=== PATIENT | male | born 1940 | race Caucasian/White ===

== ENCOUNTER 2017-08-14 22:50 | Inpatient (IN) | payer OTHER ==
[~2017-08-14] VITALS: Ht 182.9 cm; Wt 115.3 kg
[~2017-08-14 22:50] MED LIST: AMLO-114 PO; ASPI81TA28 PO; ATOR-24 PO; CALC0.2510 PO; CHOL20009 PO; DOXA2TAB PO; FURO40TA3 PO; HYDR-3983 PO; INSUINJ4 SQ; MRLP17 PO; NRN100 PO; PENT400T7 PO; PLV75 PO; PRT40 PO; SENN8.6T7 PO; THM50 PO; TPRSR25 PO
--- NOTE | 2017-08-14 23:24 | EMERGENCY ROOM VISIT NOTE ---
History Report prepared by Jose A: Viral Nash Under the Supervision of: Dr. Neymar Moseley M.D. First contact with patient: 23:02 Chief Complaint: FALL Stated Complaint: FALL/WEAKNESS EVAL. History of Present Illness The patient is a 76 year old male who presents to the Emergency Room with complaints of a resolved fall that occurred this evening. The patient's history comes from his daughter because the patient does not speak Surinamese; he only speaks Belgian. She states the patient has a long history of medical conditions , and he is becoming more and more immobile. The daughter reports he has been sitting in a chair for a few years, but he has been able to stand up and use a urinal next to his bed. She notes tonight he got up to use the restroom and fell. The daughter states he lives with her, and she could not get him up after he fell. She reports he was supposed to go to dialysis a year and a half ago, but he has not started it because of his severe spinal stenosis. The daughter notes he states he cannot move. She states he has not been evaluated by his PCP in over a year. She states his abdomen has started swelling, and he has not been able to eat as much. The daughter reports she thinks it has to do with his kidneys. She notes he also complains of throat discomfort. The daughter denies hitting his head, vomiting, diarrhea, fevers, and alcohol use. She states he has been smoking since he was in high school. HPI limited secondary to the patient's inability to speak Surinamese. Source of History: family (daughter) History Limited By: language Review of Systems ROS limited secondary to the patient's inability to speak Surinamese. Past Medical & Surgical Medical Problems: (1) Anxiety (2) Chronic kidney disease, stage IV (severe) (3) Complicated UTI (urinary tract infection) (4) DM type 2 (diabetes mellitus, type 2) (5) HTN (hypertension) (6) PAD (peripheral artery disease) Family History None presented Social History Smoking Status: Current Every Day Smoker Alcohol Use: none Drug Use: none Marital Status: Housing Status: lives with family Occupation Status: retired Current/Historical Medications Scheduled Amlodipine (Norvasc), 10 MG PO DAILY Aspirin (Aspirin Ec), 81 MG PO DAILY Cholecalciferol (Vitamin D), 4,000 INTER.UNIT PO DAILY Clopidogrel (Plavix), 75 MG PO DAILY Doxazosin Mesylate (Cardura), 2 MG PO DAILY Furosemide (Lasix), 80 MG PO DAILY Gabapentin (Neurontin), 100 MG PO QAM Insulin Glargine (Lantus Solostar Pen), UNIT SQ DAILY Metoprolol Succ (Toprol Xl) (Toprol-Xl), 25 MG PO HS Pantoprazole (Protonix), 40 MG PO DAILY Pentoxifylline (Trental), 400 MG PO DAILY Polyethylene Glycol 3350 (Miralax), 17 GM PO BID Sennosides-Docusate Sodium (Senokot S), 1 TAB PO BID Thiamine Hcl (Vitamin B-1), 50 MG PO DAILY Scheduled PRN Hydrocodone/Acetaminophen 7.5MG/325MG ([place] 7.5MG/325MG), 1 TAB PO Q6 PRN for Pain Allergies Coded Allergies: LORETTA Inhibitors (Verified Adverse Reaction, Intermediate, ADVANCED CKD, 08/14) Angiotensin Receptor Blockers (Verified Adverse Reaction, Intermediate, ADVANCED CKD, 08/14/17) Physical Exam Vital Signs Date Time Temp Pulse Resp B/P (MAP) Pulse Ox O2 Delivery O2 Flow Rate FiO2 08/15/17 02:18 79 18 131/54 96 Room Air 08/15/17 00:29 76 21 136/58 98 Room Air 08/14/17 23:13 75 08/14/17 23:04 84 08/14/17 23:00 36.8 83 22 134/67 97 Room Air Physical Exam GENERAL: Patient is elderly, chronically unwell appearing and in no acute distress. Overweight. EYES: No scleral icterus, unremarkable pupils. ENT: Mucous membranes moist, no nasal congestion. NECK: No meningismus, trachea is midline. Mild lymph node swelling to the anterior cervical. RESPIRATORY: No dyspnea. Clear to auscultation and equal bilaterally. No wheeze , no rhonchi. CARDIOVASCULAR: Regular rate and rhythm. No murmurs, rubs, gallops appreciated. GASTROINTESTINAL: Abdomen soft, nontender, no peritonitis. Bowel sounds positive. No masses appreciated. BACK: No midline tenderness, no CVA tenderness EXTREMITIES: Normal motion all extremities, no cyanosis, edematous feet with poor cap refill bilaterally. Missing right great toe. Bloody left great toe. Lymphedema to the bilateral legs with anterior circumferential wound to the left lower pugh. NEUROLOGIC: Alert and oriented, no acute motor or sensory deficits, no focal weakness, cranial nerves grossly intact. SKIN: No rash, no jaundice, no diaphoresis. Medical Decision & Procedures ER Provider Diagnostic Interpretation: X ray results are stated below per my interpretation. One View Pelvis: No fracture or dislocation. Mild degenerative changes. Three View Lumbar Spine: Chronic compression deformity - similar in appearance to CT of June 2015 with questionable increase in compression at L1 and L2. Worsening of posterior listhesis of L2 on L3. One View Chest: Mild congestion findings, perihilar adenopathy - similar to previous although slightly enlarged. Right lower lobe nodule appears new. No infiltrate or effusion. Compared to June 2015. Laboratory Results Test 08/14/17 23:20 08/15/17 01:05 RDW Standard Deviation 46.6 fL (36.4-46.3) RDW Coefficient of Variation 13.9 % (11.5-14.5) White Blood Count 14.77 K/uL (4.8-10.8) Red Blood Count 2.76 M/uL (4.7-6.1) Hemoglobin 8.9 g/dL (14.0-18.0) Hematocrit 25.5 % (42-52) Mean Corpuscular Volume 92.4 fL (80-100) Mean Corpuscular Hemoglobin 32.2 pg (25-34) Mean Corpuscular Hemoglobin Concent 34.9 g/dl (32-36) Platelet Count 293 K/uL (130-400) Mean Platelet Volume 10.8 fL (7.4-10.4) Neutrophils (%) (Auto) 74.8 % Lymphocytes (%) (Auto) 16.4 % Monocytes (%) (Auto) 5.8 % Eosinophils (%) (Auto) 2.4 % Basophils (%) (Auto) 0.3 % Neutrophils # (Auto) 11.06 K/uL (1.4-6.5) Lymphocytes # (Auto) 2.42 K/uL (1.2-3.4) Monocytes # (Auto) 0.86 K/uL (0.11-0.59) Eosinophils # (Auto) 0.35 K/uL (0-0.5) Basophils # (Auto) 0.04 K/uL (0-0.2) Immature Granulocyte % (Auto) 0.3 % Immature Granulocyte # (Auto) 0.04 K/uL (0.00-0.02) Red Blood Cell Morphology Unremarkable Prothrombin Time 10.4 SECONDS (9.0-12.0) Prothromb Time International Ratio 1.0 (0.9-1.1) Activated Partial Thromboplast Time 31.6 SECONDS (21.0-31.0) Partial Thromboplastin Ratio 1.2 Est Creatinine Clear Calc Drug Dose 25.9 ml/min Phosphorus Level 2.0 mg/dl (2.5-4.9) Magnesium Level 1.9 mg/dl (1.8-2.4) Total Bilirubin 0.3 mg/dl (0.2-1) Direct Bilirubin 0.1 mg/dl (0-0.2) Aspartate Amino Transf (AST/SGOT) 13 U/L (15-37) Alanine Aminotransferase (ALT/SGPT) 17 U/L (12-78) Alkaline Phosphatase 119 U/L (45-117) Total Creatine Kinase 241 U/L (39-308) Creatine Kinase MB 3.1 ng/ml (0.5-3.6) Creatine Kinase MB Ratio 1.3 (0-3.0) Troponin I < 0.015 ng/ml (0-0.045) Total Protein 7.2 gm/dl (6.4-8.2) Albumin 2.8 gm/dl (3.4-5.0) Lipase 325 U/L (73-393) Beta-Hydroxybutyric Acid 1.51 mg/dL (0.2-2.81) Procalcitonin 0.12 ng/ml (0-0.5) Thyroid Stimulating Hormone (TSH) 2.720 uIu/ml (0.300-4.500) Urine Color YELLOW Urine Appearance CLEAR (CLEAR) Urine pH 7.0 (4.5-7.5) Urine Specific [place] 1.018 (1.000-1.030) Urine Protein 1+ (NEG) Urine Glucose (UA) 3+ (NEG) Urine Ketones NEG (NEG) Urine Occult Blood 2+ (NEG) Urine Nitrite POS (NEG) Urine Bilirubin NEG (NEG) Urine Urobilinogen NEG (NEG) Urine Leukocyte Esterase SMALL (NEG) Urine WBC (Auto) 10-30 /hpf (0-5) Urine RBC (Auto) 0-4 /hpf (0-4) Urine Hyaline Casts (Auto) 0 /lpf (0-5) Urine Epithelial Cells (Auto) 10-20 /lpf (0-5) Urine Bacteria (Auto) 2+ (NEG) Laboratory results as reviewed by me. Medications Administered Medications (Trade) Dose Ordered Sig/Shubham Route Start Time Stop Time Status Last Admin Dose Admin Insulin Human Regular (novoLIN-R U-100 PER UNIT) 10 units NOW STAT IV 08/15/17 00:20 08/15/17 00:21 DC 08/15/17 00:27 10 UNITS Sodium Chloride 500 ml @ 999 mls/hr Q31M STAT IV 08/15/17 00:20 08/15/17 00:50 DC 08/15/17 00:26 999 MLS/HR Hydromorphone HCl (Dilaudid Inj) 0.5 mg 0129 ONCE IV 08/15/17 01:29 08/15/17 01:35 DC 08/15/17 01:48 0.5 MG Insulin Glargine (Lantus Solostar Pen) 30 units 0133 ONCE SC 08/15/17 01:33 08/15/17 01:35 DC 08/15/17 01:47 30 UNITS Doxycycline Hyclate 100 mg/ Dextrose 110 ml @ 50 mls/hr NOW STAT IV 08/15/17 02:06 08/15/17 04:17 DC 08/15/17 02:35 50 MLS/HR Prochlorperazine Edisylate 5 mg/ Syringe 5 ml @ 5 mls/min Q6H PRN IV 08/15/17 02:00 09/14/17 01:59 08/15/17 04:18 5 MLS/MIN Cefepime HCl 2000 mg/Syringe 20 ml @ 5 mls/min NOW STAT IV 08/15/17 02:07 08/15/17 02:10 DC 08/15/17 02:30 5 MLS/MIN Gabapentin (Neurontin Cap) 100 mg 0229 ONCE PO 08/15/17 02:29 08/15/17 04:05 DC 08/15/17 04:29 100 MG ECG Per My Interpretation Indication: weakness Rate (beats per minute): 77 Rhythm: normal sinus Findings: no acute ischemic change, no ectopy, other (Left anterior fasicular block. QTc of 495. U-wave in lateral leads.) Comparison ECG Date: 06/25/15 Change: U-wave is new. Otherwise morphology is generally the same. ED Course 2301: The patient was evaluated in room B09. A complete history and physical exam was performed. 0021: I reevaluated the patient. I updated him and his family of the test and lab results. His family states he is too weak to go home, and they would like further evaluation. 0028: I discussed the patient's case with Linda Mckenzie Hospitalist. The patient will be evaluated for further management and care. Medical Decision Differential: Sepsis, Infectious (UTI/Pneumonia/Meningitis/etc), Metabolic/ Electrolyte Abnormality, Cardiac, Dehydration, Anemia, Hepatic, Endocrine, Toxicologic, Neurologic, amongst other pathologies entertained. 76 yr old male with multiple medical comorbidities and essentially bed/chair bound over the last year or so arrives due to weakness too profound for family to care for. Found to be significantly hyperglycemic with mild leukocytosis. Lymphedema bilateral legs chronic with weeping sores left lower leg with some erythema though not overtly infected. Awaiting UA but given clearly will need to come if will have hospitalist evaluated. Afebrile and without tachy will hold off on empiric abx at this time. UA did eventually come back positive and hospitalist will manage abx. Head Trauma GCS Score: 15 Medication Reconcilliation Current Medication List: was personally reviewed by me Blood Pressure Screening Patient's blood pressure: Normal blood pressure Blood pressure disposition: Did not require urgent referral Consults Time Called: 23 Consulting Physician: Linda Mckenzie Returned Call: 0028 I discussed the patient's case with Linda Mckenzie. The patient will be evaluated for further management and care. Impression Primary Impression: Generalized weakness Additional Impressions: Hyperglycemia Failure to thrive Complicated UTI (urinary tract infection) Scribe Attestation The scribe's documentation has been prepared under my direction and personally reviewed by me in its entirety. I confirm that the note above accurately reflects all work, treatment, procedures, and medical decision making performed by me. Departure Information Dispostion Being Evaluated By Hospitalist Referrals Rosemary Chicas D.O. (PCP) Patient Instructions [facility] Problem Qualifiers
[2017-08-14] MEDS ORDERED: CLOP1TAB15 PO (23:28)
[2017-08-14] MEDS ORDERED: GABA-112 PO (23:30)
[2017-08-14] MEDS ORDERED: HYDR-3983 PO (23:31)
[2017-08-14 23:33] LABS: HEMATOCRIT 25.5 % (42-52); HEMOGLOBIN 8.9 g/dL (14.0-18.0); MEAN CELL VOLUME 92.4 fL (80-100); MEAN CORPUSCULAR HEMOGLOBIN 32.2 pg (25-34); MEAN CORPUSCULAR HGB CONC 34.9 g/dl (32-36); MEAN PLATELET VOLUME 10.8 fL (7.4-10.4); PLATELET COUNT 293 K/uL (130-400); RED CELL DISTRIBUTION WIDTH CV 13.9 % (11.5-14.5); RED CELL DISTRIBUTION WIDTH SD 46.6 fL (36.4-46.3); WHITE BLOOD COUNT 14.77 K/uL (4.8-10.8)
[2017-08-14] MEDS ORDERED: METO25TA3 PO (23:33)
[2017-08-14] MEDS ORDERED: PANT40TA PO (23:34)
[2017-08-14] MEDS ORDERED: POLY335019 PO (23:35)
[2017-08-14] MEDS ORDERED: SENN8.6T7 PO (23:36)
[2017-08-14] MEDS ORDERED: THIA50TA3 PO (23:37)
[2017-08-14 23:47] LABS: PTT PATIENT 31.6 SECONDS (21.0-31.0)
[2017-08-14 23:53] LABS: BASO % 0.3 %; BASO ABS # 0.04 K/uL (0-0.2); EOS % 2.4 %; EOS ABS # 0.35 K/uL (0-0.5); IG# 0.04 K/uL (0.00-0.02); LYMPH % 16.4 %; LYMPH ABS # 2.42 K/uL (1.2-3.4); MONO % 5.8 %; MONO ABS # 0.86 K/uL (0.11-0.59); NEUT % 74.8 %; NEUT ABS # 11.06 K/uL (1.4-6.5)
[2017-08-15 00:09] LABS: ALBUMIN 2.8 gm/dl (3.4-5.0); ALKALINE PHOSPHATASE 119 U/L (45-117); ALT/SGPT 17 U/L (12-78); AST/SGOT 13 U/L (15-37); BLOOD UREA NITROGEN 24 mg/dl (7-18); CALCIUM 7.9 mg/dl (8.5-10.1); CARBON DIOXIDE 23 mmol/L (21-32); CKMB 3.1 ng/ml (0.5-3.6); GLUCOSE 403 mg/dl (70-99); LIPASE 325 U/L (73-393); POTASSIUM 3.7 mmol/L (3.5-5.1); SODIUM 132 mmol/L (136-145); TOTAL PROTEIN 7.2 gm/dl (6.4-8.2)
[2017-08-15] MEDS ORDERED: SODIUM CHLORIDE 0.9% 500ML 500 ML IV STA (00:20)
[2017-08-15] MEDS ORDERED: NovoLIN-R INSULIN PER UNIT CHARGE IV STA (00:20)
[2017-08-15] MEDS ORDERED: HYDROmorphone INJ 0.5 MG/0.5 ML SYR IV ONE (01:29)
[2017-08-15] MEDS ORDERED: INSULIN GLARGINE SOLOSTAR 100 UNITS/ML 3 ML PEN SC ONE ×3 (01:33→21:51)
[2017-08-15] MEDS ORDERED: GLUCOSE 40% GEL 15 GM TUBE PO PRN ×2 (01:45→02:30)
[2017-08-15] MEDS ORDERED: DEXTROSE 50% 50 ML SYR IV PRN ×2 (01:45→02:30)
[2017-08-15] MEDS ORDERED: GLUCAGON FOR INJ 1 MG VIAL IM PRN (01:45)
[2017-08-15] MEDS ORDERED: GLUCOSE 10 TABS/TUBE PO PRN ×2 (01:45→02:30)
[2017-08-15] MEDS ORDERED: CEFEPIME IV 2,000 MG in DEXTROSE 5% 100ML 100 ML IV ONE (02:00)
[2017-08-15] MEDS ORDERED: TRAMADOL HCL 50 MG TAB PO PRN (02:00)
[2017-08-15] MEDS ORDERED: DOXYCYCLINE IV 100 MG in DEXTROSE 5% 100ML 100 ML IV STA (02:06)
[2017-08-15] MEDS ORDERED: CEFEPIME IV 2,000 MG in SYRINGE 7.5 ML IV STA (02:07)
[2017-08-15] MEDS ORDERED: DOCUSATE SODIUM/SENNA 50/8.6MG TAB PO ONE (02:29)
[2017-08-15] MEDS ORDERED: POTASSIUM PHOS 3 MMOL/1 ML INFUSION IV STA (02:29)
[2017-08-15] MEDS ORDERED: GABAPENTIN 100 MG CAP PO ONE (02:29)
[2017-08-15] MEDS ORDERED: ACETAMINOPHEN 325 MG TAB PO PRN (02:30)
[2017-08-15] MEDS ORDERED: CARBOHYDRATES FOR HYPOGLYCEMIA PO PRN (02:30)
[2017-08-15] MEDS ORDERED: PROCHLORPERAZINE INJ 5 MG in SYRINGE 4 ML IV PRN (02:30)
[2017-08-15] MEDS ORDERED: GLUCAGON FOR INJ 1 MG VIAL SQ PRN (02:30)
[2017-08-15] MEDS ORDERED: INSULIN ASPART 100 UNITS/ML 3 ML PEN SC STA (02:45)
[2017-08-15] MEDS ORDERED: POTASSIUM PHOSPHATE INJ 18 MMOL in SODIUM CHLORIDE 0.9% 500ML 500 ML IV ONE (02:45)
--- NOTE | 2017-08-15 03:41 | HISTORY & PHYSICAL EXAMINATION ---
DATE OF ADMISSION: 08/14/2017 PRIMARY CARE PHYSICIAN: Dr. Chicas. CHIEF COMPLAINT: Fall, weakness. HISTORY OF PRESENT ILLNESS: History obtained from patient, daughter, and records. History from patient limited by language barrier. Medical history is significant for history of CVA as per records, PVD status post surgery; hypertension, past tobacco abuse, DM2, insulin requiring, chronic anemia (baseline hemoglobin of 10), chronic renal insufficiency (baseline creatinine 3-4), ongoing tobacco abuse. Recent confinement last June 2015 for NSTEMI, recurrent pancreatitis. Medical management for NSTEMI. In the last year, patient has had increasing debility, trouble walking. Has not seen his family doctor for almost 2 years now due to difficulty in ambulation w chronic back pain, lower extremity neuropathy. Patient had been chair bound for about a year as per daughter. Patient did not want to follow up with PCP for a checkup. Last week, patient noted left leg swelling, which subsequently drained yellowish drainage. Increasing generalized weakness. Central abdominal discomfort, distention. Some nausea, constipated, intermittent bloody stools as per daughter, MEDICAL HISTORY: As above. SURGERIES: cholecystectomy, toe surgery. HOME MEDICATIONS: Include Protonix, Senokot, vitamin B1, gabapentin, Lantus, Toprol, Trental, aspirin, Norvasc, vitamin D, Cardura, Lasix. ALLERGIES: LORETTA INHIBITORS, ARBS. FAMILY HISTORY: There is a family history of multiple myeloma. PERSONAL AND SOCIAL HISTORY: Five cigarettes a day. No chronic intake of alcoholic beverages. Retired airline captain. Lives with daughter. Originally from [facility]. REVIEW OF SYSTEMS: Could not be reliably obtained. PHYSICAL EXAMINATION: VITAL SIGNS: Blood pressure was noted to be 134/68, pulse rate 83, RR 22, temperature 36.8, sats 98 on room air. GENERAL: Noted to be obese, unkempt, uncomfortable. No respiratory distress. SKIN: Pallor, warm. HEENT: Partial alopecia. Pale palpebral conjunctivae. No ptosis. Dry mucosa. NECK: Short, supple. CHEST: Decreased effort. No tenderness. HEART: Regular rate and rhythm, no murmur. ABDOMEN: distention, no overt tenderness. RECTAL: Intact sphincter, brown stool, heme positive. EXTREMITIES: Superficial wound, left lower extremity with yellow drainage, no LE tenderness, LLE swelling; venous stasis bilateral LABORATORY DATA: Hemoglobin noted to be 8.9, hematocrit 35.5, white cell count was 14.7, platelets 293. Sodium 132, potassium 3.7, chloride 102, BUN 24, creatinine 3.3, glucose was noted to be 403, alkaline phosphatase 119. Hemoglobin A1c from October 2015 was 8.7. UA, nitrite positive, WBC est, poss occult blood. CT head initial read no acute pathology CT abdomen and pelvis initial read stool burden, stable nonspecific lymphadenopathy, Postcholecystectomy CXR as per my interpretation minimal congestion, atelectasis EKG as per my interpretation rate 80 NSR LAD LAFB, no ischemia ASSESSMENT: 1. Complicated UTI, no overt sepsis, 2. Diabetic wound, left lower extremity. No overt sepsis. Rule out DVT as etiology of left leg swelling 3. DM2, insulin requiring, suboptimal control as of last outpatient hemoglobin A1c from 2015 4. Hypertension, stable. 5. Kvzbj-rt-upozmiw anemia 2 to intermittent LGIB hx chronic anemia secondary to CKD 6. CRI, creatinine at baseline. 7. hx CVA as per records 8. hx PVD sp surgery 9. ongoing tobacco abuse. 10. Ambulatory dysfunction 2 to chronic back pain, diabetic peripheral neuropathy 11. Functional disability PLAN: GMF Follow urine cultures, IV Cefepime for UTI IV Cefepime and Doxycycline for LLE wound, cellulitis Wound care nurse consult LLE venous Dopplers rule out DVT Appropriate to hold home antiplatelets for now given intermittent LGIB causing hemoglobin drop from baseline Follow H and H. Transfuse pRBC if hemoglobin less than 8 (hx PVD) Anemia workup Inpatient GI consult LGIB as per daughter request PT, OT eval. Basal insulin, ISS BG goal 140-180, carb count coverage indicated for suboptimal blood sugar control Check hemoglobin A1c Diabetic education for patient and caregiver daughter. May benefit for pharmacy glycemic control consult. Patient to stop smoking. PT, OT eval. DVT Prophylaxis TEDS (SCDs contraindicated by hx PVD) RE GI bleed Social service RE discharge planning Full code. Patient's daughter requesting for updates from providers, [facility] thru contact number [phone]. [facility]
[2017-08-15] MEDS: PROCHLORPERAZINE INJ 5 MG in SYRINGE 4 ML IV PRN ×2 (04:18→09:48)
[2017-08-15 04:29] VITALS: BP 136/64; PULSE 81; TEMP 36.6; O2SAT 97; BMI 34.5
--- NOTE | 2017-08-15 05:34 | DIAGNOSTIC IMAGING REPORT ---
LUMBAR SPINE 2 OR 3 VIEWS CLINICAL HISTORY: 76 years-old Male presenting with chronic low back pain, worse with fall this evening. TECHNIQUE: Frontal, lateral, and coned in lateral views of the lumbar spine were obtained. COMPARISON: CT of the lumbar spine from 06/27/2015. FINDINGS: Osteopenia suggested. Normal lumbar lordosis. No significant scoliosis. Vertebral bodies maintain normal height and alignment though mild vertebral body height loss may be present at T12 similar to prior exam. Prominent anterior osteophytosis. Intervertebral disc heights preserved. Facet arthropathy in the lower lumbar spine results in osseous neural foraminal narrowing from L3-4 through L5-S1. No evidence of a compression deformity or subluxation. Gaseous distention of the right colon with moderate stool burden in the left colon. Cholecystectomy clips noted. IMPRESSION: 1. Multilevel degenerative changes with osseous neural foraminal narrowing. 2. Suspected osteopenia limits evaluation for fracture. Allowing for this, no radiographic evidence of a compression deformity. 3. Moderate stool burden in the left colon with gaseous distention of the right colon. Electronically signed by: Mikey Carreno M.D. 08/15/2017 5:33 AM Dictated Date/Time: 08/15/2017 5:30 AM
--- NOTE | 2017-08-15 05:36 | DIAGNOSTIC IMAGING REPORT ---
PELVIS 1 OR 2 VIEW ROUTINE CLINICAL HISTORY: 76 years-old Male presenting with fall, low back pain. TECHNIQUE: Single frontal view the pelvis was obtained. COMPARISON: CT from 06/25/2015 FINDINGS: Sacroiliac joints, hip joints, and pubic symphysis congruent. Osteopenia suspected. Bony pelvis intact. Femoral necks grossly intact. No acute fracture or malalignment. No advanced degenerative change. No radiographic soft tissue abnormality. IMPRESSION: No acute osseous injury. Electronically signed by: Mikey Carreno M.D. 08/15/2017 5:34 AM Dictated Date/Time: 08/15/2017 5:33 AM
--- NOTE | 2017-08-15 05:37 | DIAGNOSTIC IMAGING REPORT ---
CHEST ONE VIEW PORTABLE CLINICAL HISTORY: 76 years-old Male presenting with Generalized Weakness. TECHNIQUE: Portable upright AP view of the chest was obtained. COMPARISON: 06/25/2015. FINDINGS: Atherosclerosis of the aortic arch. Cardiac silhouette normal in size. Mild prominence of pulmonary vasculature. Prominence of the bilateral jonh is presumably vascular No focal opacity. No large effusion or pneumothorax. Osseous structures normal. IMPRESSION: 1. Mild volume overload suggested. No norris pulmonary edema. Electronically signed by: Mikey Carreno M.D. 08/15/2017 5:36 AM Dictated Date/Time: 08/15/2017 5:35 AM
[2017-08-15 06:55] LABS: HEMATOCRIT 24.8 % (42-52); HEMOGLOBIN 8.6 g/dL (14.0-18.0); MEAN CELL VOLUME 92.5 fL (80-100); MEAN CORPUSCULAR HEMOGLOBIN 32.1 pg (25-34); MEAN CORPUSCULAR HGB CONC 34.7 g/dl (32-36); MEAN PLATELET VOLUME 10.6 fL (7.4-10.4); PLATELET COUNT 279 K/uL (130-400); RED CELL DISTRIBUTION WIDTH CV 13.9 % (11.5-14.5); RED CELL DISTRIBUTION WIDTH SD 46.1 fL (36.4-46.3); RETIC COUNT % 2.4 % (0.5-2.0); WHITE BLOOD COUNT 14.28 K/uL (4.8-10.8)
--- NOTE | 2017-08-15 07:05 | DIAGNOSTIC IMAGING REPORT ---
HEAD WITHOUT CONTRAST (CT) CLINICAL HISTORY: 76 years-old Male presenting with lower extremity weakness, history of stroke. TECHNIQUE: Multidetector CT imaging of the head was performed without the use of intravenous contrast. IV contrast: None. A dose lowering technique was used consistent with the principles of ALARA (as low as reasonably achievable). COMPARISON: None. CT DOSE (mGy.cm): The estimated cumulative dose is 614.27 mGy.cm. FINDINGS: Rn Allergy topogram: Unremarkable. Proportional ventricular and sulcal prominence, likely age-related parenchymal volume loss. Brain parenchyma normal in appearance with preserved suárez-white differentiation. No mass effect or midline shift. No hemorrhage or acute territorial infarct. No extra-axial fluid collection. Paranasal sinuses and mastoid air cells clear. Calvarium intact. IMPRESSION: 1. No acute intracranial abnormality. Electronically signed by: Mikey Carreno M.D. 08/15/2017 7:03 AM Dictated Date/Time: 08/15/2017 7:01 AM
[2017-08-15 07:23] LABS: CALCIUM 7.7 mg/dl (8.5-10.1); CREATININE 3.03 mg/dl (0.60-1.40); POTASSIUM 3.8 mmol/L (3.5-5.1)
[2017-08-15 07:41] LABS: BASO % 0.3 %; BASO ABS # 0.04 K/uL (0-0.2); EOS % 1.2 %; EOS ABS # 0.17 K/uL (0-0.5); IG# 0.05 K/uL (0.00-0.02); LYMPH % 12.9 %; LYMPH ABS # 1.84 K/uL (1.2-3.4); MONO % 5.8 %; MONO ABS # 0.83 K/uL (0.11-0.59); NEUT % 79.4 %; NEUT ABS # 11.35 K/uL (1.4-6.5)
[2017-08-15] MEDS ORDERED: CEFEPIME CONSULT ACTIVE PRN (08:00)
[2017-08-15] MEDS: DOCUSATE SODIUM/SENNA 50/8.6MG TAB PO SCH ×2 (08:00→21:00)
[2017-08-15 08:01] LABS: HEMOGLOBIN A1C 11.6 % (4.5-5.6)
[2017-08-15] MEDS: POLYETHYLENE (MIRALAX) 17 GM PACK PO SCH ×2 (08:01→20:59)
[2017-08-15] MEDS: PANTOprazole SOD 40 MG TAB PO SCH (08:01)
[2017-08-15] MEDS: THIAMINE HCL 50 MG TAB PO SCH (08:01)
[2017-08-15 08:07] VITALS: BP 135/71; PULSE 82; TEMP 36.8; O2SAT 95
--- NOTE | 2017-08-15 08:12 | DIAGNOSTIC IMAGING REPORT ---
ABD/PELVIS NO IV OR ORAL CONT CLINICAL HISTORY: 76 years-old Male presenting with abd pain, vomiting. TECHNIQUE: Multidetector CT of the abdomen and pelvis was performed without the use of intravenous contrast. IV contrast: None. A dose lowering technique was used consistent with the principles of ALARA (as low as reasonably achievable). COMPARISON: 06/25/2015. CT DOSE (mGy.cm): The estimated cumulative dose is 1589.96 mGy.cm. FINDINGS: Image quality is degraded by positioning of the arms at the sides. [employer] topogram: Unremarkable. Lung bases: Minimal basilar opacities, likely atelectasis. Normal heart size. Coronary artery and aortic valve calcification. No pericardial or pleural effusion. Liver: Normal morphology. Normal density. Biliary: No gross biliary ductal dilatation allowing for noncontrast technique. Gallbladder surgically absent. Pancreas: Moderate parenchymal atrophy. Less atrophy of the pancreatic head is noted at the peripancreatic fat infiltration along the dorsum and ventral aspect of the pancreas. A component of this is chronic including periduodenal fascial thickening and infiltration of the root of the small bowel mesentery. Spleen: Normal noncontrast appearance. Adrenal glands: Normal noncontrast appearance. Kidneys and ureters: Bilaterally atrophic kidneys. A hyperdense subcentimeter lesion at the anterior aspect of the interpolar region of the right kidney may represent a hemorrhagic or proteinaceous cyst but is incompletely evaluated. Few low-density to intermediate density lesions also noted, some may represents cysts and some indeterminate. No hydronephrosis. No nephrolithiasis. Renal vascular calcification. Ureters normal. Bladder: Circumferential bladder wall thickening. Pelvic organs: Prostate enlargement likely secondary to benign prostatic hyperplasia. Bowel: Mild stool burden throughout normal caliber colon. The appendix is normal. No bowel obstruction. Intramural fat deposition in the descending duodenum could suggest chronic inflammation. Peritoneal cavity: No free fluid or intraperitoneal gas. Trace retroperitoneal fluid and fascial thickening. Much of this is chronic. Lymph nodes: No gross lymphadenopathy allowing for noncontrast technique. Vasculature: Atherosclerosis of the normal caliber abdominal aorta. Abdominal wall: Diastasis of the rectus abdominis. Musculoskeletal: Degenerative changes of the spine. Degenerative changes of the sacroiliac joints. IMPRESSION: 1. Peripancreatic and periduodenal fluid and inflammatory change as well as fascial thickening. Some of this is chronic. Correlate with lipase to exclude interstitial edematous pancreatitis. Relatively less atrophy of the pancreatic head could relate to the presence of pancreatitis. Follow-up contrast enhanced exam could be considered to exclude underlying pancreatic mass. 2. 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 Infiltration of the mesentery secondary to this entity is difficult to distinguish from at least some of the peripancreatic/periduodenal inflammatory change. 3. Atrophic kidneys with several indeterminate subcentimeter lesions, some of which are cysts. Renal ultrasound to be considered if there is clinical concern. 4. Chronic bladder outlet obstruction secondary to prostatomegaly. The report will be called/faxed according to standard departmental protocol. Electronically signed by: Mikey Carreno M.D. 08/15/2017 8:10 AM Dictated Date/Time: 08/15/2017 8:01 AM
[2017-08-15] MEDS: HYDROCODONE/ACETAMINOPHEN 7.5/325MG TAB PO PRN ×2 (08:18→21:15)
--- NOTE | 2017-08-15 08:54 | DIAGNOSTIC IMAGING REPORT ---
L VENOUS DOPP LOWER EXT UNILAT CLINICAL HISTORY: 76 years-old Male presenting with left lower extremity pain and swelling. TECHNIQUE: Real-time grayscale and color and spectral Doppler ultrasound imaging of the veins of the left lower extremity was performed. Compression and augmentation were also utilized. COMPARISON: 06/23/2015. FINDINGS: Left: Common femoral vein: Patent. Greater saphenous vein: Patent. Deep femoral vein: Patent. Femoral vein: Patent. Popliteal vein: Patent. Calf veins: Limited visualization. Other: None. IMPRESSION: No evidence of deep venous thrombosis. Electronically signed by: Mikey Carreno M.D. 08/15/2017 8:53 AM Dictated Date/Time: 08/15/2017 8:52 AM
[2017-08-15] MEDS: INSULIN ASPART 100 UNITS/ML 3 ML PEN SC SCH ×4 (09:32→20:59)
[2017-08-15] MEDS: HYDROmorphone INJ 0.5 MG/0.5 ML SYR IV PRN ×2 (09:37→12:53)
[2017-08-15 12:06] VITALS: BP 120/76; PULSE 69; TEMP 36.8; O2SAT 97
--- NOTE | 2017-08-15 13:05 | GASTROINTESTINAL CONSULTATION ---
DATE OF CONSULTATION: 08/15/2017 CHIEF COMPLAINT: Fall and weakness. HISTORY OF PRESENT ILLNESS: The patient is a 76-year-old male who was brought in to the Emergency Room by his family after a fall at home. GI is consulted for evaluation of longstanding anemia. The patient and family do note that he has had problems with constipation over the past year, thought to be a result of his being wheelchair bound. He did have a bowel movement at home which did have some blood around the stool. The patient did have a prior colonoscopy attempted several years ago. Records are not available; however, the family reports that the prep was insufficient and the patient was advised to have a repeat examination performed. The patient denies having fevers or chills. He does note a large amount of foot discomfort for which he is under evaluation. PAST MEDICAL HISTORY: Diabetes, cardiovascular disease, peripheral vascular disease, hypertension, renal insufficiency, tobacco abuse. PAST SURGICAL HISTORY: Cholecystectomy. OUTPATIENT MEDICATIONS: Protonix, Senokot, vitamin B1, gabapentin, Lantus, Toprol, Trental, aspirin, Norvasc, vitamin D, Cardura, Lasix. ALLERGIES: [place]ET[place] INHIBITORS, ARBs. FAMILY HISTORY: No history of colorectal cancer. There is a family history of multiple myeloma. SOCIAL HISTORY: One half pack per day, ongoing. The patient does not drink presently. REVIEW OF SYSTEMS: CARDIAC: No chest pain. PULMONARY: No shortness of breath. GASTROINTESTINAL: The patient does have abdominal discomfort. MUSCULOSKELETAL: The patient does have foot pain. PHYSICAL EXAMINATION: VITAL SIGNS: Temperature 36.8, pulse is 82, respiratory rate 22, blood pressure is 135/71, pulse ox 95% on room air. GENERAL: The patient is obese, appears to be in this pain. SKIN: The patient with pallor of the skin in the lower extremities bilaterally. The patient with swelling and what appears to be infection of the left great toe. HEENT: No icterus noted. CARDIOVASCULAR: Regular rhythm. No murmur. PULMONARY: Decreased respiratory effort with a delay in expiratory phase, but no wheezes. ABDOMEN: Soft, no focal tenderness noted. EXTREMITIES: The patient with what appears to be infection of the left great toe. DERMATOLOGY: No spider nevi noted. LABORATORIES: White blood cell count is 14.28, hemoglobin is 8.6, hematocrit is 24.8, platelet count is 279. PT is 10.4, INR is 1.0. Sodium 134, potassium is 3.8, chloride is 105, BUN is 23, creatinine is 3.03, iron saturation 26, ferritin 140, lipase on admission 325. IMPRESSION: A 76-year-old male with chronic renal insufficiency and what appears to be chronic infection, presenting for a fall at home. GI is consulted with regard to his anemia. I suspect that the patient's anemia is related to his renal insufficiency and perhaps underlying chronic diseases. Given the failed colonoscopy in the past, it would certainly be reasonable to repeat an examination once his other medical issues have been stabilized. He will likely need a 2-day bowel prep for this. RECOMMENDATIONS: 1. Consider use of MiraLax 17 grams twice daily. 2. Please call when we can arrange colonoscopy. We are certainly happy to do this during the present hospitalization. Please call with any questions or concerns.
--- NOTE | 2017-08-15 13:59 | Progress Note ---
Internal Med Progress Note Date of Service: August 15, 2017. Provider Documentation: SUBJECTIVE: The patient was seen and examined in 10 medical floor He cannot speak Yakut so the communication was made through daughter He has some left leg pain but no other significant symptoms Admitted with rectal bleed and anemia Has complicated UTI OBJECTIVE: Vital Signs-as noted below Exam: General-no apparent distress at rest Eyes-normal ENT-normal Neck-supple Lungs-decreased breath sounds both sides but no wheezing and/or crackles Heart-regular Abdomen-distended, soft, nontender, bowel sounds present Extremities-1+ edema bilaterally, chronic leg ulcer right mid leg which is bandaged Loss of disease in the left side Neuro-alert and awake Generally weak but no focal neuro deficit Lab data as noted below. ASSESSMENT & PLAN: Complicated UTI, no overt sepsis, Follow urine cultures, IV Cefepime for UTI IV Cefepime and Doxycycline for LLE wound, cellulitis Denies any Urinary symptoms Diabetic wound, left lower extremity.complicated by PVD No overt sepsis. US-No DVT IV Cefepime and Doxycycline for LLE wound, cellulitis Wound care consult [id number] anemia 2 to intermittent LGIB Appropriate to hold home antiplatelets for now given intermittent LGIB causing hemoglobin drop from baseline Follow H and H. Transfuse pRBC if hemoglobin less than 8 (hx PVD) Inpatient GI consult LGIB as per daughter request Appreciate GI input Colonoscopy on Thursday following 2 days bowel preoperation Abnormal CT CT of the Abd and Pelvis::IMPRESSION: 1. Peripancreatic and periduodenal fluid and inflammatory change as well as fascial thickening. Some of this is chronic. Correlate with lipase to exclude interstitial edematous pancreatitis. Relatively less atrophy of the pancreatic head could relate to the presence of pancreatitis. Follow-up contrast enhanced exam could be considered to exclude underlying pancreatic mass. 2. 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 Infiltration of the mesentery secondary to this entity is difficult to distinguish from at least some of the peripancreatic/periduodenal inflammatory change. 3. Atrophic kidneys with several indeterminate subcentimeter lesions, some of which are cysts. Renal ultrasound to be considered if there is clinical concern. 4. Chronic bladder outlet obstruction secondary to prostatomegaly. Will discuss the results with the GI No Acute symptoms from it now DM2, insulin requiring, suboptimal control as of last outpatient hemoglobin A1c from 2016 Basal insulin, ISS BG goal 140-180, carb count coverage indicated for suboptimal blood sugar control Check hemoglobin A1c Diabetic education for patient and caregiver daughter. May benefit for pharmacy glycemic control consult. Hypertension, stable. CRI, creatinine at baseline Monitor Kidney function. hx CVA as per records PVD sp surgery Ongoing tobacco abuse. Ambulatory dysfunction 2 to chronic back pain, diabetic peripheral neuropathy Functional disability PT, OT eval. DVT Prophylaxis TEDS (SCDs contraindicated by hx PVD) RE GI bleed Social service RE discharge planning Full code. Disposition Discussed with the Daughter Vital Signs: Date Time Temp Pulse Resp B/P (MAP) Pulse Ox O2 Delivery O2 Flow Rate FiO2 08/15/17 12:06 36.8 69 16 120/76 (91) 97 Room Air 08/15/17 08:15 Room Air 08/15/17 08:07 36.8 82 22 135/71 (92) 95 Room Air 08/15/17 04:29 36.6 81 20 136/64 97 Room Air 08/15/17 02:54 36.8 79 18 131/54 96 08/15/17 02:18 79 18 131/54 96 Room Air 08/15/17 00:29 76 21 136/58 98 Room Air 08/14/17 23:13 75 08/14/17 23:04 84 08/14/17 23:00 36.8 83 22 134/67 97 Room Air Lab Results: Results Past 24 Hours Test 08/14/17 23:20 08/15/17 01:05 08/15/17 04:36 08/15/17 06:36 Range/Units White Blood Count 14.77 14.28 4.8-10.8 K/uL Red Blood Count 2.76 2.68 4.7-6.1 M/uL Hemoglobin 8.9 8.6 14.0-18.0 g/dL Hematocrit 25.5 24.8 42-52 % Mean Corpuscular Volume 92.4 92.5 80-100 fL Mean Corpuscular Hemoglobin 32.2 32.1 25-34 pg Mean Corpuscular Hemoglobin Concent 34.9 34.7 32-36 g/dl Platelet Count 293 279 130-400 K/uL Mean Platelet Volume 10.8 10.6 7.4-10.4 fL Neutrophils (%) (Auto) 74.8 79.4 % Lymphocytes (%) (Auto) 16.4 12.9 % Monocytes (%) (Auto) 5.8 5.8 % Eosinophils (%) (Auto) 2.4 1.2 % Basophils (%) (Auto) 0.3 0.3 % Neutrophils # (Auto) 11.06 11.35 1.4-6.5 K/uL Lymphocytes # (Auto) 2.42 1.84 1.2-3.4 K/uL Monocytes # (Auto) 0.86 0.83 0.11-0.59 K/uL Eosinophils # (Auto) 0.35 0.17 0-0.5 K/uL Basophils # (Auto) 0.04 0.04 0-0.2 K/uL RDW Standard Deviation 46.6 46.1 36.4-46.3 fL RDW Coefficient of Variation 13.9 13.9 11.5-14.5 % Immature Granulocyte % (Auto) 0.3 0.4 % Immature Granulocyte # (Auto) 0.04 0.05 0.00-0.02 K/uL Red Blood Cell Morphology Unremarkable Prothrombin Time 10.4 9.0-12.0 SECONDS Prothromb Time International Ratio 1.0 0.9-1.1 Activated Partial Thromboplast Time 31.6 21.0-31.0 SECONDS Partial Thromboplastin Ratio 1.2 Sodium Level 132 134 136-145 mmol/L Potassium Level 3.7 3.8 3.5-5.1 mmol/L Chloride Level 102 105 98-107 mmol/L Carbon Dioxide Level 23 23 21-32 mmol/L Anion Gap 7.0 6.0 3-11 mmol/L Blood Urea Nitrogen 24 23 7-18 mg/dl Creatinine 3.30 3.03 0.60-1.40 mg/dl Est Creatinine Clear Calc Drug Dose 25.9 27.6 ml/min Estimated GFR () 20.1 22.2 Estimated GFR (Non- 17.3 19.2 BUN/Creatinine Ratio 7.4 7.7 10-20 Random Glucose 403 234 70-99 mg/dl Estimated Average Glucose 286 mg/dl Hemoglobin A1c 11.6 4.5-5.6 % Calcium Level 7.9 7.7 8.5-10.1 mg/dl Phosphorus Level 2.0 2.5-4.9 mg/dl Magnesium Level 1.9 1.8-2.4 mg/dl Total Bilirubin 0.3 0.2-1 mg/dl Direct Bilirubin 0.1 0-0.2 mg/dl Aspartate Amino Transf (AST/SGOT) 13 15-37 U/L Alanine Aminotransferase (ALT/SGPT) 17 12-78 U/L Alkaline Phosphatase 119 45-117 U/L Total Creatine Kinase 241 39-308 U/L Creatine Kinase MB 3.1 0.5-3.6 ng/ml Creatine Kinase MB Ratio 1.3 0-3.0 Troponin I < 0.015 0-0.045 ng/ml Total Protein 7.2 6.4-8.2 gm/dl Albumin 2.8 3.4-5.0 gm/dl Lipase 325 73-393 U/L Beta-Hydroxybutyric Acid 1.51 0.2-2.81 mg/dL Procalcitonin 0.12 0-0.5 ng/ml Thyroid Stimulating Hormone (TSH) 2.720 0.300-4.500 uIu/ml Urine Color YELLOW Urine Appearance CLEAR CLEAR Urine pH 7.0 4.5-7.5 Urine Specific [place] 1.018 1.000-1.030 Urine Protein 1+ NEG Urine Glucose (UA) 3+ NEG Urine Ketones NEG NEG Urine Occult Blood 2+ NEG Urine Nitrite POS NEG Urine Bilirubin NEG NEG Urine Urobilinogen NEG NEG Urine Leukocyte Esterase SMALL NEG Urine WBC (Auto) 10-30 0-5 /hpf Urine RBC (Auto) 0-4 0-4 /hpf Urine Hyaline Casts (Auto) 0 0-5 /lpf Urine Epithelial Cells (Auto) 10-20 0-5 /lpf Urine Bacteria (Auto) 2+ NEG Bedside Glucose 271 70-99 mg/dl Absolute Reticulocyte Count 0.06 0.02-0.10 10^6/uL Percent Reticulocyte Count 2.4 0.5-2.0 % Iron Level 24 35-175 mcg/dl Total Iron Binding Capacity 100 250-450 mcg/dl Transferrin 66 200-360 mg/dl Transferrin % Saturation 26 20-50 % Ferritin 140.6 8.0-388.0 ng/ml Vitamin B12 Level 215 211-911 pg/mL Folate 7.07 >5.38 ng/mL Test 08/15/17 07:38 08/15/17 12:08 Range/Units Bedside Glucose 239 70-99 mg/dl Hemoglobin 9.0 14.0-18.0 g/dL Hematocrit 26.0 42-52 % Microbiology Results 08/15/17 Urine Culture, Received Pending 08/15/17 Gram Stain, Received Pending 08/15/17 Wound Culture, Received Pending
[2017-08-15 15:08] VITALS: BP 145/64; PULSE 69; TEMP 36.8; O2SAT 97
[2017-08-15 18:03] VITALS: BMI 34.5
[2017-08-15] MEDS: DICLOFENAC SOD 1% GEL 100 GM TUBE EXT SCH (20:56)
[2017-08-15] MEDS: GABAPENTIN 100 MG CAP PO SCH (20:56)
[2017-08-15] MEDS: DOXAZosin MESYLATE TAB 2 MG TAB PO SCH (20:57)
[2017-08-15] MEDS: METOPROLOL SUCC 25MG EXT REL TAB PO SCH (20:57)
[2017-08-15] MEDS: DOXYCYCLINE IV 100 MG in DEXTROSE 5% 100ML 100 ML IV SCH (20:59)
[2017-08-15 22:16] VITALS: BP 145/73; PULSE 76; TEMP 37; O2SAT 97
[2017-08-16] MEDS: CEFEPIME IV 1,000 MG in SYRINGE 0 ML IV SCH (02:43)
[2017-08-16] MEDS: INSULIN ASPART 100 UNITS/ML 3 ML PEN SC SCH ×4 (06:30→21:00)
[2017-08-16] MEDS: GABAPENTIN 100 MG CAP PO SCH ×2 (07:35→21:21)
[2017-08-16] MEDS: DOCUSATE SODIUM/SENNA 50/8.6MG TAB PO SCH ×2 (07:35→21:20)
[2017-08-16] MEDS: POLYETHYLENE (MIRALAX) 17 GM PACK PO SCH ×2 (07:35→20:00)
[2017-08-16] MEDS: DICLOFENAC SOD 1% GEL 100 GM TUBE EXT SCH ×2 (07:35→21:18)
[2017-08-16] MEDS: PANTOprazole SOD 40 MG TAB PO SCH (07:35)
[2017-08-16] MEDS: THIAMINE HCL 50 MG TAB PO SCH (07:36)
[2017-08-16] MEDS: HYDROCODONE/ACETAMINOPHEN 7.5/325MG TAB PO PRN ×2 (07:42→13:30)
[2017-08-16] MEDS: DOXYCYCLINE IV 100 MG in DEXTROSE 5% 100ML 100 ML IV SCH ×2 (07:46→21:16)
[2017-08-16 07:49] LABS: HEMATOCRIT 27.9 % (42-52); HEMOGLOBIN 9.5 g/dL (14.0-18.0); MEAN CELL VOLUME 93.3 fL (80-100); MEAN CORPUSCULAR HEMOGLOBIN 31.8 pg (25-34); MEAN CORPUSCULAR HGB CONC 34.1 g/dl (32-36); MEAN PLATELET VOLUME 10.1 fL (7.4-10.4); PLATELET COUNT 295 K/uL (130-400); RED CELL DISTRIBUTION WIDTH CV 14.3 % (11.5-14.5); RED CELL DISTRIBUTION WIDTH SD 48.4 fL (36.4-46.3); WHITE BLOOD COUNT 12.44 K/uL (4.8-10.8)
[2017-08-16 08:00] VITALS: BP 113/80; PULSE 62; TEMP 36.5; O2SAT 95
[2017-08-16] MEDS ORDERED: INSULIN GLARGINE SOLOSTAR 100 UNITS/ML 3 ML PEN SC SCH ×2 (08:00)
[2017-08-16 08:17] LABS: BASO % 0.3 %; BASO ABS # 0.04 K/uL (0-0.2); EOS % 4.4 %; EOS ABS # 0.55 K/uL (0-0.5); IG# 0.05 K/uL (0.00-0.02); LYMPH % 18.7 %; LYMPH ABS # 2.33 K/uL (1.2-3.4); MONO % 8.7 %; MONO ABS # 1.08 K/uL (0.11-0.59); NEUT % 67.5 %; NEUT ABS # 8.39 K/uL (1.4-6.5)
[2017-08-16] MEDS: HYDROmorphone INJ 0.5 MG/0.5 ML SYR IV PRN ×2 (08:41→15:36)
[2017-08-16] MEDS: INSULIN GLARGINE SOLOSTAR 100 UNITS/ML 3 ML PEN SC SCH (08:45)
--- NOTE | 2017-08-16 11:53 | Progress Note ---
Internal Med Progress Note Date of Service: August 16, 2017. Provider Documentation: SUBJECTIVE: The patient was seen and examined in 10 medical floor He cannot speak Croatian so the communication was made through daughter He has some left leg pain but no other significant symptoms Admitted with rectal bleed and anemia Has complicated UTI 5/6 Patient Remains stable Denies any pain Talked to the Daughter OBJECTIVE: Vital Signs-as noted below Exam: General-no apparent distress at rest Eyes-normal ENT-normal Neck-supple Lungs-decreased breath sounds both sides but no wheezing and/or crackles Heart-regular Abdomen-distended, soft, nontender, bowel sounds present Extremities-1+ edema bilaterally, chronic leg ulcer right mid leg which is bandaged Loss of disease in the left side Neuro-alert and awake Generally weak but no focal neuro deficit Lab data as noted below. ASSESSMENT & PLAN: Complicated UTI, no overt sepsis, Follow urine cultures, IV Cefepime for UTI IV Cefepime and Doxycycline for LLE wound, cellulitis Denies any Urinary symptoms Culture-Gamma Strep not Enterococci Continue current antibiotic Diabetic wound, left lower extremity.complicated by PVD No overt sepsis. US-No DVT IV Cefepime and Doxycycline for LLE wound, cellulitis Wound care consult -appreciate input Pain is better [id number] anemia 2 to intermittent LGIB Appropriate to hold home antiplatelets for now given intermittent LGIB causing hemoglobin drop from baseline Follow H and H. Transfuse pRBC if hemoglobin less than 8 (hx PVD) Inpatient GI consult LGIB as per daughter request Appreciate GI input Colonoscopy on Thursday following 2 days bowel preoperation Abnormal CT CT of the Abd and Pelvis::IMPRESSION: 1. Peripancreatic and periduodenal fluid and inflammatory change as well as fascial thickening. Some of this is chronic. Correlate with lipase to exclude interstitial edematous pancreatitis. Relatively less atrophy of the pancreatic head could relate to the presence of pancreatitis. Follow-up contrast enhanced exam could be considered to exclude underlying pancreatic mass. 2. 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 Infiltration of the mesentery secondary to this entity is difficult to distinguish from at least some of the peripancreatic/periduodenal inflammatory change. 3. Atrophic kidneys with several indeterminate subcentimeter lesions, some of which are cysts. Renal ultrasound to be considered if there is clinical concern. 4. Chronic bladder outlet obstruction secondary to prostatomegaly. Will discuss the results with the GI No Acute symptoms from it now Will check Lipase-doubt any pancreatitis DM2, insulin requiring, suboptimal control as of last outpatient hemoglobin A1c from 2016 Basal insulin, ISS BG goal 140-180, carb count coverage indicated for suboptimal blood sugar control Check hemoglobin A1c Diabetic education for patient and caregiver daughter. May benefit for pharmacy glycemic control consult. Hypertension, stable. CRI, creatinine at baseline Monitor Kidney function. hx CVA as per records PVD sp surgery Ongoing tobacco abuse. Ambulatory dysfunction 2 to chronic back pain, diabetic peripheral neuropathy Functional disability PT, OT eval. DVT Prophylaxis TEDS (SCDs contraindicated by hx PVD) RE GI bleed Social service RE discharge planning Full code. Disposition Discussed with the Daughter 08/15 and 08/16 Vital Signs: Date Time Temp Pulse Resp B/P (MAP) Pulse Ox O2 Delivery O2 Flow Rate FiO2 08/16/17 08:00 Room Air 08/16/17 08:00 36.5 62 24 113/80 (91) 95 Room Air 08/16/17 00:30 Room Air 08/15/17 22:16 37.0 76 20 145/73 (97) 97 Room Air 08/15/17 16:00 Room Air 08/15/17 15:08 36.8 69 16 145/64 (91) 97 Room Air 08/15/17 12:06 36.8 69 16 120/76 (91) 97 Room Air Lab Results: Results Past 24 Hours Test 08/15/17 12:08 08/15/17 16:41 08/15/17 20:21 08/16/17 07:43 Range/Units Hemoglobin 9.0 9.5 14.0-18.0 g/dL Hematocrit 26.0 27.9 42-52 % Bedside Glucose 176 212 70-99 mg/dl White Blood Count 12.44 4.8-10.8 K/uL Red Blood Count 2.99 4.7-6.1 M/uL Mean Corpuscular Volume 93.3 80-100 fL Mean Corpuscular Hemoglobin 31.8 25-34 pg Mean Corpuscular Hemoglobin Concent 34.1 32-36 g/dl Platelet Count 295 130-400 K/uL Mean Platelet Volume 10.1 7.4-10.4 fL Neutrophils (%) (Auto) 67.5 % Lymphocytes (%) (Auto) 18.7 % Monocytes (%) (Auto) 8.7 % Eosinophils (%) (Auto) 4.4 % Basophils (%) (Auto) 0.3 % Neutrophils # (Auto) 8.39 1.4-6.5 K/uL Lymphocytes # (Auto) 2.33 1.2-3.4 K/uL Monocytes # (Auto) 1.08 0.11-0.59 K/uL Eosinophils # (Auto) 0.55 0-0.5 K/uL Basophils # (Auto) 0.04 0-0.2 K/uL RDW Standard Deviation 48.4 36.4-46.3 fL RDW Coefficient of Variation 14.3 11.5-14.5 % Immature Granulocyte % (Auto) 0.4 % Immature Granulocyte # (Auto) 0.05 0.00-0.02 K/uL Test 08/16/17 07:46 Range/Units Bedside Glucose 178 70-99 mg/dl
[2017-08-16 15:12] VITALS: BP 122/73; PULSE 67; TEMP 36.9; O2SAT 95
[2017-08-16] MEDS: METOPROLOL SUCC 25MG EXT REL TAB PO SCH (21:20)
[2017-08-16] MEDS: DOXAZosin MESYLATE TAB 2 MG TAB PO SCH (21:22)
[2017-08-17] MEDS: CEFEPIME IV 1,000 MG in SYRINGE 0 ML IV SCH (01:45)
[2017-08-17 07:48] LABS: BASO % 0.4 %; BASO ABS # 0.04 K/uL (0-0.2); EOS % 4.7 %; EOS ABS # 0.52 K/uL (0-0.5); HEMATOCRIT 26.7 % (42-52); HEMOGLOBIN 9.1 g/dL (14.0-18.0); IG# 0.04 K/uL (0.00-0.02); LYMPH % 17.3 %; LYMPH ABS # 1.92 K/uL (1.2-3.4); MEAN CORPUSCULAR HGB CONC 34.1 g/dl (32-36); MEAN PLATELET VOLUME 10.1 fL (7.4-10.4); MONO % 8.9 %; MONO ABS # 0.99 K/uL (0.11-0.59); NEUT % 68.3 %; NEUT ABS # 7.59 K/uL (1.4-6.5); PLATELET COUNT 287 K/uL (130-400); RED CELL DISTRIBUTION WIDTH CV 14.5 % (11.5-14.5); RED CELL DISTRIBUTION WIDTH SD 49.8 fL (36.4-46.3)
[2017-08-17] MEDS: DICLOFENAC SOD 1% GEL 100 GM TUBE EXT SCH ×2 (08:03→20:19)
[2017-08-17] MEDS: DOXYCYCLINE IV 100 MG in DEXTROSE 5% 100ML 100 ML IV SCH (08:03)
[2017-08-17] MEDS: DOCUSATE SODIUM/SENNA 50/8.6MG TAB PO SCH ×2 (08:04→20:20)
[2017-08-17] MEDS: POLYETHYLENE (MIRALAX) 17 GM PACK PO SCH ×2 (08:04→20:21)
[2017-08-17] MEDS: THIAMINE HCL 50 MG TAB PO SCH (08:04)
[2017-08-17] MEDS: GABAPENTIN 100 MG CAP PO SCH ×3 (08:04→20:19)
[2017-08-17] MEDS: PANTOprazole SOD 40 MG TAB PO SCH (08:04)
[2017-08-17] MEDS: HYDROCODONE/ACETAMINOPHEN 7.5/325MG TAB PO PRN (08:05)
[2017-08-17 08:07] VITALS: BP 125/72; PULSE 71; TEMP 36.8; O2SAT 95
[2017-08-17] MEDS: INSULIN GLARGINE SOLOSTAR 100 UNITS/ML 3 ML PEN SC SCH (08:11)
[2017-08-17 08:14] LABS: ALBUMIN 2.5 gm/dl (3.4-5.0); CALCIUM 7.9 mg/dl (8.5-10.1); CREATININE 3.44 mg/dl (0.60-1.40); POTASSIUM 4.2 mmol/L (3.5-5.1)
[2017-08-17 08:17] LABS: PHOSPHORUS 3.5 mg/dl (2.5-4.9); TOTAL PROTEIN 6.7 gm/dl (6.4-8.2)
[2017-08-17] MEDS ORDERED: GABAPENTIN 300 MG CAP PO ONE (10:09)
[2017-08-17] MEDS ORDERED: GABAPENTIN 100 MG CAP PO ONE (10:12)
--- NOTE | 2017-08-17 10:43 | Gastroenterology Progress Note ---
Progress Note Date of Service: August 17, 2017 Subjective Pt evaluation today including: conversation w/ patient, physical exam, chart review, lab review, review of studies, review of inpatient medication list Mr. Quesada is a 76 with a history of DM, CKD, PVD, peripherally neuropathy confined to a wheelchair who presented to [facility] with symptomatic, chronic anemia on 08/15/17. Also with report of constipation with one episode of bright red blood with a large BM and straining last week. Hb 9.1 w/o receiving any blood products and pt w/o any gross GI bleeding since admission. Today main concern is heal pain thought secondary to peripheral neuropathy, also acute on chronic lower leg cellulitis. Review of Systems Constitutional: + problem reported (langauge barrier; daughter is here to translate), No fever Respiratory: No cough Abdomen: + see HPI, + constipation, + GI bleeding (see HPI), No pain, No nausea , No vomiting, No diarrhea Male : No dysuria Neuro: No memory loss Psych: No depression symptoms Heme: + see HPI, No abnormal bleeding/bruising Skin: No rash Medications Current Inpatient Medications Medications (Trade) Dose Ordered Sig/Shubham Route Start Time Stop Time Status Last Admin Dose Admin Hydromorphone HCl (Dilaudid Inj) 0.5 mg Q3H PRN IV 08/15/17 01:30 08/29/17 01:29 08/16/17 15:36 0.5 MG Glucose (Glucose 40% Gel) 15-30 GRAMS 15 GRAMS... UD PRN PO 08/15/17 01:45 09/14/17 01:44 Glucose (Glucose Chew Tab) 4-8 Tablets 4 Tabl... UD PRN PO 08/15/17 01:45 09/14/17 01:44 Dextrose (Dextrose 50% 50ML Syringe) 25-50ML 25ML FOR ... UD PRN IV 08/15/17 01:45 09/14/17 01:44 Glucagon (Glucagon Inj) 1 mg UD PRN IM 08/15/17 01:45 09/14/17 01:44 Carbohydrates (Carbohydrates For Hypoglycemia) 15-30 GRAMS 15 grams if BSG 54-69... UD PRN PO 08/15/17 01:45 09/14/17 01:44 Prochlorperazine Edisylate 5 mg/ Syringe 5 ml @ 5 mls/min Q6H PRN IV 08/15/17 02:00 09/14/17 01:59 08/15/17 09:48 5 MLS/MIN Acetaminophen (Tylenol Tab) 650 mg Q4H PRN PO 08/15/17 02:30 09/14/17 02:29 Insulin Aspart (novoLOG ASPART) SLIDING SCALE If C... ACHS SC 08/15/17 06:30 09/14/17 06:59 08/16/17 17:39 2 UNITS Doxazosin Mesylate (Cardura Tab) 2 mg HS PO 08/15/17 21:00 09/14/17 20:59 08/16/17 21:22 2 MG Acetaminophen/ Hydrocodone Bitart (Philip 7.5/325 Tab) 1 tab Q6 PRN PO 08/15/17 02:30 08/29/17 02:29 08/17/17 08:05 1 TAB Metoprolol Succinate (Toprol Xl Tab) 25 mg HS PO 08/15/17 21:00 09/14/17 20:59 08/16/17 21:20 25 MG Pantoprazole Sodium (Protonix Tab) 40 mg DAILY PO 08/15/17 08:00 09/14/17 08:59 08/17/17 08:04 40 MG Senna/Docusate Sodium (Senokot S Tab) 1 tab BID PO 08/15/17 08:00 09/14/17 08:59 08/17/17 08:04 1 TAB Polyethylene (Miralax Powder Packet) 17 gm BID PO 08/15/17 08:00 09/14/17 08:59 08/17/17 08:04 17 GM Thiamine HCl (Vitamin B-1 Tab) 50 mg QAM PO 08/15/17 08:00 09/14/17 08:59 08/17/17 08:04 50 MG Diclofenac Sodium (Voltaren 1% Top Gel) 1 appln BID EXT 08/15/17 20:00 09/14/17 19:59 08/17/17 08:03 1 APPLN Insulin Glargine (Lantus Solostar Pen) 45 units DAILY SC 08/16/17 08:00 09/15/17 08:59 08/17/17 08:11 45 UNITS Gabapentin (Neurontin Cap) 100 mg TID PO 08/17/17 14:00 09/16/17 13:59 Ciprofloxacin (Cipro Tab) 500 mg HS PO 08/17/17 21:00 08/25/17 20:59 Cephalexin Monohydrate (Keflex Cap) 250 mg Q8 PO 08/17/17 22:00 08/25/17 21:59 Objective Vital Signs Date Time Temp Pulse Resp B/P (MAP) Pulse Ox O2 Delivery O2 Flow Rate FiO2 08/17/17 08:07 36.8 71 18 125/72 (89) 95 Room Air 08/17/17 00:20 Room Air 08/16/17 15:12 36.9 67 20 122/73 (89) 95 Room Air Physical Exam General Appearance: + mild distress (very expressive about heel pain) Respiratory/Chest: lungs clear Cardiovascular: regular rate, rhythm Abdomen: non tender, soft Extremities: + pertinent finding (right foot S/P 3 toe amputations (distant)) Neurologic/Psych: alert, normal mood/affect, oriented x 3 Skin: no jaundice, + pertinent finding (lower legs dressings dry) Laboratory Results Last 24 Hours Test 08/16/17 11:21 08/16/17 16:48 08/16/17 20:55 08/17/17 07:40 Bedside Glucose 207 mg/dl 132 mg/dl 127 mg/dl White Blood Count 11.10 K/uL Red Blood Count 2.84 M/uL Hemoglobin 9.1 g/dL Hematocrit 26.7 % Mean Corpuscular Volume 94.0 fL Mean Corpuscular Hemoglobin 32.0 pg Mean Corpuscular Hemoglobin Concent 34.1 g/dl Platelet Count 287 K/uL Mean Platelet Volume 10.1 fL Neutrophils (%) (Auto) 68.3 % Lymphocytes (%) (Auto) 17.3 % Monocytes (%) (Auto) 8.9 % Eosinophils (%) (Auto) 4.7 % Basophils (%) (Auto) 0.4 % Neutrophils # (Auto) 7.59 K/uL Lymphocytes # (Auto) 1.92 K/uL Monocytes # (Auto) 0.99 K/uL Eosinophils # (Auto) 0.52 K/uL Basophils # (Auto) 0.04 K/uL RDW Standard Deviation 49.8 fL RDW Coefficient of Variation 14.5 % Immature Granulocyte % (Auto) 0.4 % Immature Granulocyte # (Auto) 0.04 K/uL Sodium Level 139 mmol/L Potassium Level 4.2 mmol/L Chloride Level 109 mmol/L Carbon Dioxide Level 21 mmol/L Anion Gap 10.0 mmol/L Blood Urea Nitrogen 27 mg/dl Creatinine 3.44 mg/dl Est Creatinine Clear Calc Drug Dose 24.3 ml/min Estimated GFR () 19.1 Estimated GFR (Non- 16.5 BUN/Creatinine Ratio 7.8 Random Glucose 105 mg/dl Calcium Level 7.9 mg/dl Phosphorus Level 3.5 mg/dl Magnesium Level 2.0 mg/dl Total Bilirubin 0.4 mg/dl Aspartate Amino Transf (AST/SGOT) 18 U/L Alanine Aminotransferase (ALT/SGPT) 15 U/L Alkaline Phosphatase 101 U/L Total Protein 6.7 gm/dl Albumin 2.5 gm/dl Globulin 4.2 gm/dl Albumin/Globulin Ratio 0.6 Test 08/17/17 07:41 Bedside Glucose 114 mg/dl Assessment and Plan Mr. Quesada is a 76 yr old male with 1. Chronic anemia. 2. CT on arrival suggesting periduodenal/peripancreatic fluid. Plan 1. EGD/Colonoscopy on 08/19/17 after a two day prep. 2. Further recommendations to follow endoscopy. I have seen and examined the patient with INA Garcia whose note reflects our findings and plan. Unexplained anemia. Will plan for an upper and lower endoscopic evaluation on Thursday. Doing a 2 day prep.
--- NOTE | 2017-08-17 11:49 | Progress Note ---
Internal Med Progress Note Date of Service: August 17, 2017. Provider Documentation: SUBJECTIVE: The patient was seen and examined in 10 medical floor He cannot speak Slovenian so the communication was made through daughter He has some left leg pain but no other significant symptoms Admitted with rectal bleed and anemia Has complicated UTI 08/16 Patient Remains stable Denies any pain Talked to the Daughter 08/17 Complains of pain in left leg No complaints of abdominal pain ,nausea and or vomiting OBJECTIVE: Vital Signs-as noted below Exam: General-no apparent distress at rest Eyes-normal ENT-normal Neck-supple Lungs-decreased breath sounds both sides but no wheezing and/or crackles Heart-regular Abdomen-distended, soft, nontender, bowel sounds present Extremities-1+ edema bilaterally, chronic leg ulcer right mid leg which is bandaged Loss of disease in the left side Neuro-alert and awake Generally weak but no focal neuro deficit Lab data as noted below. ASSESSMENT & PLAN: Complicated UTI, no overt sepsis, Follow urine cultures, IV Cefepime for UTI IV Cefepime and Doxycycline for LLE wound, cellulitis Denies any Urinary symptoms Culture-Gamma Strep not Enterococci Continue current antibiotic Antibiotic changed to Cipro and Keflex Diabetic wound, left lower extremity.complicated by PVD No overt sepsis. US-No DVT IV Cefepime and Doxycycline for LLE wound, cellulitis Wound care consult -appreciate input Pain is worse-will start Gabapentin and increase the frequency of Voltaren Will ask Vascular surgery evaluation Tried Pentoxifylline before [id number] anemia 2 to intermittent LGIB Appropriate to hold home antiplatelets for now given intermittent LGIB causing hemoglobin drop from baseline Follow H and H. Transfuse pRBC if hemoglobin less than 8 (hx PVD) Inpatient GI consult LGIB as per daughter request Appreciate GI input Colonoscopy on Thursday following 2 days bowel preoperation Will have Colonoscopy and EGD on Thursday Abnormal CT CT of the Abd and Pelvis::IMPRESSION: 1. Peripancreatic and periduodenal fluid and inflammatory change as well as fascial thickening. Some of this is chronic. Correlate with lipase to exclude interstitial edematous pancreatitis. Relatively less atrophy of the pancreatic head could relate to the presence of pancreatitis. Follow-up contrast enhanced exam could be considered to exclude underlying pancreatic mass. 2. 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 Infiltration of the mesentery secondary to this entity is difficult to distinguish from at least some of the peripancreatic/periduodenal inflammatory change. 3. Atrophic kidneys with several indeterminate subcentimeter lesions, some of which are cysts. Renal ultrasound to be considered if there is clinical concern. 4. Chronic bladder outlet obstruction secondary to prostatomegaly. Will discuss the results with the GI No Acute symptoms from it now Will check Lipase-doubt any pancreatitis Lipase -normal and no GI symptoms DM2, insulin requiring, suboptimal control as of last outpatient hemoglobin A1c from 2016 Basal insulin, ISS BG goal 140-180, carb count coverage indicated for suboptimal blood sugar control Check hemoglobin A1c Diabetic education for patient and caregiver daughter. May benefit for pharmacy glycemic control consult. Hypertension, stable. CRI, creatinine at baseline~3.5 Monitor Kidney function. hx CVA as per records PVD sp surgery Ongoing tobacco abuse. Ambulatory dysfunction 2 to chronic back pain, diabetic peripheral neuropathy Functional disability PT, OT eval. DVT Prophylaxis TEDS (SCDs contraindicated by hx PVD) RE GI bleed Social service RE discharge planning Full code. Disposition Discussed with the Daughter 08/15 and 08/16 and 08/17 Has had a long discussion with the Daughter Touched base on -CKD,Uncontrolled DM,PVD and Diabetic leg ulcers and GI issues Vital Signs: Date Time Temp Pulse Resp B/P (MAP) Pulse Ox O2 Delivery O2 Flow Rate FiO2 08/17/17 08:07 36.8 71 18 125/72 (89) 95 Room Air 08/17/17 00:20 Room Air 08/16/17 15:12 36.9 67 20 122/73 (89) 95 Room Air Lab Results: Results Past 24 Hours Test 08/16/17 16:48 08/16/17 20:55 08/17/17 07:40 08/17/17 07:41 Range/Units Bedside Glucose 132 127 114 70-99 mg/dl White Blood Count 11.10 4.8-10.8 K/uL Red Blood Count 2.84 4.7-6.1 M/uL Hemoglobin 9.1 14.0-18.0 g/dL Hematocrit 26.7 42-52 % Mean Corpuscular Volume 94.0 80-100 fL Mean Corpuscular Hemoglobin 32.0 25-34 pg Mean Corpuscular Hemoglobin Concent 34.1 32-36 g/dl Platelet Count 287 130-400 K/uL Mean Platelet Volume 10.1 7.4-10.4 fL Neutrophils (%) (Auto) 68.3 % Lymphocytes (%) (Auto) 17.3 % Monocytes (%) (Auto) 8.9 % Eosinophils (%) (Auto) 4.7 % Basophils (%) (Auto) 0.4 % Neutrophils # (Auto) 7.59 1.4-6.5 K/uL Lymphocytes # (Auto) 1.92 1.2-3.4 K/uL Monocytes # (Auto) 0.99 0.11-0.59 K/uL Eosinophils # (Auto) 0.52 0-0.5 K/uL Basophils # (Auto) 0.04 0-0.2 K/uL RDW Standard Deviation 49.8 36.4-46.3 fL RDW Coefficient of Variation 14.5 11.5-14.5 % Immature Granulocyte % (Auto) 0.4 % Immature Granulocyte # (Auto) 0.04 0.00-0.02 K/uL Sodium Level 139 136-145 mmol/L Potassium Level 4.2 3.5-5.1 mmol/L Chloride Level 109 98-107 mmol/L Carbon Dioxide Level 21 21-32 mmol/L Anion Gap 10.0 3-11 mmol/L Blood Urea Nitrogen 27 7-18 mg/dl Creatinine 3.44 0.60-1.40 mg/dl Est Creatinine Clear Calc Drug Dose 24.3 ml/min Estimated GFR () 19.1 Estimated GFR (Non- 16.5 BUN/Creatinine Ratio 7.8 10-20 Random Glucose 105 70-99 mg/dl Calcium Level 7.9 8.5-10.1 mg/dl Phosphorus Level 3.5 2.5-4.9 mg/dl Magnesium Level 2.0 1.8-2.4 mg/dl Total Bilirubin 0.4 0.2-1 mg/dl Aspartate Amino Transf (AST/SGOT) 18 15-37 U/L Alanine Aminotransferase (ALT/SGPT) 15 12-78 U/L Alkaline Phosphatase 101 45-117 U/L Total Protein 6.7 6.4-8.2 gm/dl Albumin 2.5 3.4-5.0 gm/dl Globulin 4.2 2.5-4.0 gm/dl Albumin/Globulin Ratio 0.6 0.9-2
[2017-08-17] MEDS: INSULIN ASPART 100 UNITS/ML 3 ML PEN SC SCH ×4 (12:19→20:46)
[2017-08-17] MEDS ORDERED: GABAPENTIN 300 MG CAP PO SCH (14:00)
[2017-08-17 14:11] VITALS: BMI 34.5
[2017-08-17 16:29] VITALS: BP 114/68; PULSE 65; TEMP 36.8; O2SAT 95
[2017-08-17] MEDS ORDERED: LAVAGE SOLUTION 4000ML PO SCH (18:00)
[2017-08-17 20:20] VITALS: BP 121/71; PULSE 69
[2017-08-17] MEDS: CEPHALEXIN MONOHYDRATE 250 MG CAP PO SCH (20:20)
[2017-08-17] MEDS: METOPROLOL SUCC 25MG EXT REL TAB PO SCH (20:20)
[2017-08-17] MEDS: DOXAZosin MESYLATE TAB 2 MG TAB PO SCH (20:20)
[2017-08-17] MEDS: CIPROFLOXACIN 500 MG TAB PO SCH (20:21)
[2017-08-18] VITALS: BP 140/80; PULSE 77; TEMP 36.9; O2SAT 94
[2017-08-18] MEDS: HYDROCODONE/ACETAMINOPHEN 7.5/325MG TAB PO PRN ×3 (00:58→17:28)
--- NOTE | 2017-08-18 01:11 | CARDIOLOGY CONSULTATION ---
DATE OF CONSULTATION: 08/17/2017 CONSULTATION REQUESTED BY: Dr. Driver. REASON FOR CONSULTATION: Peripheral arterial disease. HISTORY OF PRESENT ILLNESS: Mr. Quesada is a 76-year-old [place]ican speaking man who was admitted from his home in the setting of generalized fatigue, inability to ambulate, abdominal discomfort, questionable bloody stools, and UTI. Cardiology was consulted for his known peripheral arterial disease, post prior endovascular intervention in the setting of lower extremity ulcerations. The patient had previously been followed by Dr. Goldstein for his vascular disease. Previously, he had underwent intervention with atherectomy and balloon angioplasty to his popliteal artery as well as balloon angioplasty of his peroneal artery in 08/2014. This was done in the setting of lower extremity ulcerations, most notably a left lower extremity heel ulceration, which subsequently healed. Since that time, patient has largely stayed away from physicians and was last seen in cardiology in October 2014. More recently, he has had difficulty caring for himself and his daughter whom with he lives with has also had difficulty caring for him at home and he presented to the ED with numerous complaints as listed above. PAST MEDICAL HISTORY: Remarkable for: 1. Peripheral arterial disease as discussed above. 2. Prior CVA. 3. Hypertension. 4. Past tobacco abuse. 5. Insulin requiring type 2 diabetes. 6. Chronic anemia. 7. Chronic renal insufficiency with baseline creatinine between 3-4, previously been evaluated for dialysis access. 8. Prior cholecystectomy. 9. Suspected coronary artery disease with prior NSTEMI in 06/2015. 10. Recurrent pancreatitis. HOME MEDICATIONS: Include Protonix, Senokot, vitamin D, gabapentin, Lantus, doxazosin, Lipitor, Lasix 80 mg, metoprolol succinate 25 mg, Norvasc 5, pentoxifylline 400, and vitamin D3. ALLERGIES: LORETTA INHIBITORS AND ARBs. FAMILY HISTORY: Family history of multiple myeloma. No history of premature coronary artery disease. SOCIAL HISTORY: Now smoking 5 cigarettes a day. Denies significant alcohol. 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. REVIEW OF SYSTEMS: Could not be obtained. PHYSICAL EXAMINATION: VITAL SIGNS: Temperature 36.8, pulse 65, blood pressure 114/68. He is satting 95% on room air. GENERAL: The patient appeared comfortable, in no acute distress. HEENT: Sclerae are anicteric. Oropharynx is clear. NECK: Supple. He had no lymphadenopathy. LUNGS: Clear to auscultation bilaterally. CARDIAC: He had distant heart sounds, but was regular with no appreciable murmurs. ABDOMEN: Obese, soft, nontender. EXTREMITIES: He had superficial ulcerations over the anterior aspect of his shins bilaterally, left greater than right. There was no surrounding erythema or induration. Distally, he had no active ulcerations. His distal toes were discolored, purple with diminished capillary refill. DP and PT pulses bilaterally were nonpalpable. NEUROLOGIC: Nonfocal. LABORATORY DATA: Sodium 139, potassium 4.2, BUN of 27, creatinine of 3.44, magnesium of 2.0. Hemoglobin of 9.1. White blood cell count of 11 and platelets of 287. UA, grossly positive urine. Urine culture growing gamma strep, not enterococcus. Wound culture is growing Staph species. Lower extremity ultrasound was negative for DVT. IMPRESSION AND PLAN: 1. Lower extremity ulceration. 2. Peripheral arterial disease. 3. Suspected chronic venous insufficiency. 4. 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 5. Anemia. 6. UTI. 7. Type 2 diabetes. 8. History of presumed coronary artery disease post prior NSTEMI. Mr. Quesada is here with generalized weakness and failure to thrive in the setting of UTI and anemia. He was noted to have lower extremity ulcerations bilaterally, left greater than right, which were most consistent with venous insufficiency. The patient with known peripheral arterial disease, post prior endovascular intervention and based on exam I suspect that does have severe bilateral left greater than right arterial disease. However, has no distal ulcerations at this time and feel that current pugh ulcerations from venous disease likely to have adequate perfusion to heal. However, we will further evaluate his arterial disease with a repeat lower extremity arterial duplex and ABIs. Otherwise, aspirin and Plavix are on hold in the setting of anemia. Would resume when safe from a GI standpoint. Patient previously on pentoxifylline, which has not led to significant improvement in symptoms, could consider a trial of cilostazol when able to tolerate antiplatelet therapy. Otherwise, continue home antihypertensive regimen. Consider re-addition of statin as able. We will continue to follow and further recommendations pending findings of lower extremity arterial duplex. Thank you for consultation.
[2017-08-18] MEDS: CEPHALEXIN MONOHYDRATE 250 MG CAP PO SCH ×3 (06:27→21:50)
[2017-08-18] MEDS: INSULIN ASPART 100 UNITS/ML 3 ML PEN SC SCH ×4 (06:30→21:00)
[2017-08-18 07:12] LABS: BASO % 0.2 %; BASO ABS # 0.03 K/uL (0-0.2); EOS % 3.9 %; EOS ABS # 0.49 K/uL (0-0.5); HEMATOCRIT 27.6 % (42-52); HEMOGLOBIN 9.2 g/dL (14.0-18.0); IG# 0.07 K/uL (0.00-0.02); LYMPH % 23.6 %; MEAN CELL VOLUME 95.2 fL (80-100); MEAN CORPUSCULAR HEMOGLOBIN 31.7 pg (25-34); MEAN CORPUSCULAR HGB CONC 33.3 g/dl (32-36); MEAN PLATELET VOLUME 10.1 fL (7.4-10.4); MONO % 9.2 %; MONO ABS # 1.17 K/uL (0.11-0.59); NEUT % 62.5 %; NEUT ABS # 7.96 K/uL (1.4-6.5); PLATELET COUNT 304 K/uL (130-400); RED CELL DISTRIBUTION WIDTH CV 14.7 % (11.5-14.5); RED CELL DISTRIBUTION WIDTH SD 50.8 fL (36.4-46.3); WHITE BLOOD COUNT 12.72 K/uL (4.8-10.8)
[2017-08-18] MEDS: THIAMINE HCL 50 MG TAB PO SCH (07:20)
[2017-08-18] MEDS: DOCUSATE SODIUM/SENNA 50/8.6MG TAB PO SCH ×2 (07:20→21:51)
[2017-08-18] MEDS: GABAPENTIN 100 MG CAP PO SCH ×3 (07:20→21:50)
[2017-08-18] MEDS: DICLOFENAC SOD 1% GEL 100 GM TUBE EXT SCH ×2 (07:21→21:46)
[2017-08-18] MEDS: POLYETHYLENE (MIRALAX) 17 GM PACK PO SCH ×2 (07:21→20:00)
[2017-08-18] MEDS: PANTOprazole SOD 40 MG TAB PO SCH (07:21)
[2017-08-18 07:24] VITALS: BP 131/69; PULSE 67; TEMP 36.6; O2SAT 94
[2017-08-18 08:00] VITALS: O2SAT 94
[2017-08-18] MEDS: INSULIN GLARGINE SOLOSTAR 100 UNITS/ML 3 ML PEN SC SCH (08:41)
--- NOTE | 2017-08-18 10:13 | Gastroenterology Progress Note ---
Progress Note Date of Service: August 18, 2017 Subjective Pt evaluation today including: conversation w/ patient, conversation w/ family , physical exam, chart review Pt was seen and evaluated, chart reviewed. Nursing at bedside. Discussed w/ family on phone. Only complaint is ongoing foot and heel pain, left. No abd pain. No nausea, vomiting. Is tolerating bowel prep and clear liquids. BMs are liquid per nurse. No BRBPR or black stools. No fever, chills, CP, SOB Review of Systems Constitutional: No fever, No chills Respiratory: No cough, No shortness of breath Cardiac: No chest pain Abdomen: + diarrhea, No pain, No nausea, No vomiting, No constipation, No GI bleeding Medications Current Inpatient Medications Medications (Trade) Dose Ordered Sig/Shubham Route Start Time Stop Time Status Last Admin Dose Admin Hydromorphone HCl (Dilaudid Inj) 0.5 mg Q3H PRN IV 08/15/17 01:30 08/29/17 01:29 08/16/17 15:36 0.5 MG Glucose (Glucose 40% Gel) 15-30 GRAMS 15 GRAMS... UD PRN PO 08/15/17 01:45 09/14/17 01:44 Glucose (Glucose Chew Tab) 4-8 Tablets 4 Tabl... UD PRN PO 08/15/17 01:45 09/14/17 01:44 Dextrose (Dextrose 50% 50ML Syringe) 25-50ML 25ML FOR ... UD PRN IV 08/15/17 01:45 09/14/17 01:44 Glucagon (Glucagon Inj) 1 mg UD PRN IM 08/15/17 01:45 09/14/17 01:44 Carbohydrates (Carbohydrates For Hypoglycemia) 15-30 GRAMS 15 grams if BSG 54-69... UD PRN PO 08/15/17 01:45 09/14/17 01:44 Prochlorperazine Edisylate 5 mg/ Syringe 5 ml @ 5 mls/min Q6H PRN IV 08/15/17 02:00 09/14/17 01:59 08/15/17 09:48 5 MLS/MIN Acetaminophen (Tylenol Tab) 650 mg Q4H PRN PO 08/15/17 02:30 09/14/17 02:29 Insulin Aspart (novoLOG ASPART) SLIDING SCALE If C... ACHS SC 08/15/17 06:30 09/14/17 06:59 08/17/17 18:37 2 UNITS Doxazosin Mesylate (Cardura Tab) 2 mg HS PO 08/15/17 21:00 09/14/17 20:59 08/17/17 20:20 2 MG Acetaminophen/ Hydrocodone Bitart ([place] 7.5/325 Tab) 1 tab Q6 PRN PO 08/15/17 02:30 08/29/17 02:29 08/18/17 08:44 1 TAB Metoprolol Succinate (Toprol Xl Tab) 25 mg HS PO 08/15/17 21:00 09/14/17 20:59 08/17/17 20:20 25 MG Pantoprazole Sodium (Protonix Tab) 40 mg DAILY PO 08/15/17 08:00 09/14/17 08:59 08/18/17 07:21 40 MG Senna/Docusate Sodium (Senokot S Tab) 1 tab BID PO 08/15/17 08:00 09/14/17 08:59 08/17/17 20:20 1 TAB Polyethylene (Miralax Powder Packet) 17 gm BID PO 08/15/17 08:00 09/14/17 08:59 08/17/17 20:21 17 GM Thiamine HCl (Vitamin B-1 Tab) 50 mg QAM PO 08/15/17 08:00 09/14/17 08:59 08/18/17 07:20 50 MG Diclofenac Sodium (Voltaren 1% Top Gel) 1 appln BID EXT 08/15/17 20:00 09/14/17 19:59 08/18/17 07:21 1 APPLN Insulin Glargine (Lantus Solostar Pen) 45 units DAILY SC 08/16/17 08:00 09/15/17 08:59 08/18/17 08:41 45 UNITS Gabapentin (Neurontin Cap) 100 mg TID PO 08/17/17 14:00 09/16/17 13:59 08/18/17 07:20 100 MG Ciprofloxacin (Cipro Tab) 500 mg HS PO 08/17/17 21:00 08/25/17 20:59 08/17/17 20:21 500 MG Cephalexin Monohydrate (Keflex Cap) 250 mg Q8 PO 08/17/17 22:00 08/25/17 21:59 08/18/17 06:27 250 MG Polyethylene Glycol/ Electrolytes (Golytely Soln) 16 dose TODAY@1800 PO 08/18/17 18:00 08/18/17 23:59 Objective Vital Signs Date Time Temp Pulse Resp B/P (MAP) Pulse Ox O2 Delivery O2 Flow Rate FiO2 08/18/17 08:00 94 Room Air 08/18/17 07:24 36.6 67 18 131/69 (89) 94 Room Air 08/18/17 00:00 94 Room Air 08/18/17 00:00 36.9 77 20 140/80 (100) 94 Room Air 08/17/17 20:20 69 121/71 (88) 08/17/17 16:29 36.8 65 18 114/68 (83) 95 Room Air 08/17/17 16:00 Room Air 08/17/17 11:57 Room Air Physical Exam General Appearance: no apparent distress Eyes: PERRL ENT: hearing grossly normal Neck: supple, trachea midline Respiratory/Chest: lungs clear Cardiovascular: regular rate, rhythm Abdomen: normal bowel sounds, non tender, soft, no organomegaly Neurologic/Psych: alert, normal mood/affect, oriented x 3 Laboratory Results Last 24 Hours Test 08/17/17 11:37 08/17/17 16:54 08/17/17 20:32 08/18/17 07:03 Bedside Glucose 90 mg/dl 166 mg/dl 135 mg/dl White Blood Count 12.72 K/uL Red Blood Count 2.90 M/uL Hemoglobin 9.2 g/dL Hematocrit 27.6 % Mean Corpuscular Volume 95.2 fL Mean Corpuscular Hemoglobin 31.7 pg Mean Corpuscular Hemoglobin Concent 33.3 g/dl Platelet Count 304 K/uL Mean Platelet Volume 10.1 fL Neutrophils (%) (Auto) 62.5 % Lymphocytes (%) (Auto) 23.6 % Monocytes (%) (Auto) 9.2 % Eosinophils (%) (Auto) 3.9 % Basophils (%) (Auto) 0.2 % Neutrophils # (Auto) 7.96 K/uL Lymphocytes # (Auto) 3.00 K/uL Monocytes # (Auto) 1.17 K/uL Eosinophils # (Auto) 0.49 K/uL Basophils # (Auto) 0.03 K/uL RDW Standard Deviation 50.8 fL RDW Coefficient of Variation 14.7 % Immature Granulocyte % (Auto) 0.6 % Immature Granulocyte # (Auto) 0.07 K/uL Test 08/18/17 07:38 Bedside Glucose 81 mg/dl Assessment and Plan 76 yr old male with w/ chronic anemia and admission CT w/ periduodenal/ peripancreatic fluid. He is on a two day bowel prep for endoscopy on 08/19/17. Continue bowel prep NPO after midnight EGD/Colonoscopy on 08/19/17 Further recommendations to follow endoscopy Late entry I have seen and examined the patient with INA Brooke on 08/18. Her note reflects our findings and plan.
--- NOTE | 2017-08-18 16:35 | DIAGNOSTIC IMAGING REPORT ---
ART DOP LOWER EXT BILAT CLINICAL HISTORY: PAD claudication COMPARISON STUDY: None Findings: Diminished waveforms throughout all major arterial structures of the thighs as well as lower legs. Monophasic waveforms are identified throughout. Increased velocity as seen within the left superficial femoral artery. Patient was unable to tolerate blood pressure evaluation. IMPRESSION: Limited study as the patient could not tolerate blood pressure evaluation. Monophasic waveforms throughout both legs suggesting extensive arterial sclerotic narrowing. The above report was generated using voice recognition software. It may contain grammatical, syntax or spelling errors. Electronically signed by: Rene Davis M.D. 08/18/2017 4:34 PM Dictated Date/Time: 08/18/2017 4:32 PM
[2017-08-18] MEDS ORDERED: LAVAGE SOLUTION 4000ML PO SCH (18:00)
--- NOTE | 2017-08-18 18:11 | Progress Note ---
Subjective Date of Service: August 18, 2017. Subjective Pt evaluation today including: conversation w/ patient, conversation w/ family , physical exam, lab review, review of studies, review of inpatient medication list Saw/examined the patient in room 414 Spoke with patient's daughter on the phone She is agreeable with the plan for EGD and colonoscopy Patient is yelling out in [place], unable to understand; does not speak Indonesian Problem List Medical Problems: (1) Dehydration Status: Acute (2) Elevated troponin Status: Acute (3) Failure to thrive Status: Acute (4) Generalized weakness Status: Acute (5) Hyperglycemia Status: Acute (6) Pancreatitis Status: Acute Medications Current Inpatient Medications Medications (Trade) Dose Ordered Sig/Shubham Route Start Time Stop Time Status Last Admin Dose Admin Hydromorphone HCl (Dilaudid Inj) 0.5 mg Q3H PRN IV 08/15/17 01:30 08/29/17 01:29 08/16/17 15:36 0.5 MG Glucose (Glucose 40% Gel) 15-30 GRAMS 15 GRAMS... UD PRN PO 08/15/17 01:45 09/14/17 01:44 Glucose (Glucose Chew Tab) 4-8 Tablets 4 Tabl... UD PRN PO 08/15/17 01:45 09/14/17 01:44 Dextrose (Dextrose 50% 50ML Syringe) 25-50ML 25ML FOR ... UD PRN IV 08/15/17 01:45 09/14/17 01:44 Glucagon (Glucagon Inj) 1 mg UD PRN IM 08/15/17 01:45 09/14/17 01:44 Carbohydrates (Carbohydrates For Hypoglycemia) 15-30 GRAMS 15 grams if BSG 54-69... UD PRN PO 08/15/17 01:45 09/14/17 01:44 Prochlorperazine Edisylate 5 mg/ Syringe 5 ml @ 5 mls/min Q6H PRN IV 08/15/17 02:00 09/14/17 01:59 08/15/17 09:48 5 MLS/MIN Acetaminophen (Tylenol Tab) 650 mg Q4H PRN PO 08/15/17 02:30 09/14/17 02:29 Insulin Aspart (novoLOG ASPART) SLIDING SCALE If C... ACHS SC 08/15/17 06:30 09/14/17 06:59 08/17/17 18:37 2 UNITS Doxazosin Mesylate (Cardura Tab) 2 mg HS PO 08/15/17 21:00 09/14/17 20:59 08/17/17 20:20 2 MG Acetaminophen/ Hydrocodone Bitart ([place] 7.5/325 Tab) 1 tab Q6 PRN PO 08/15/17 02:30 08/29/17 02:29 08/18/17 17:28 1 TAB Metoprolol Succinate (Toprol Xl Tab) 25 mg HS PO 08/15/17 21:00 09/14/17 20:59 08/17/17 20:20 25 MG Pantoprazole Sodium (Protonix Tab) 40 mg DAILY PO 08/15/17 08:00 09/14/17 08:59 08/18/17 07:21 40 MG Senna/Docusate Sodium (Senokot S Tab) 1 tab BID PO 08/15/17 08:00 09/14/17 08:59 08/17/17 20:20 1 TAB Polyethylene (Miralax Powder Packet) 17 gm BID PO 08/15/17 08:00 09/14/17 08:59 08/17/17 20:21 17 GM Thiamine HCl (Vitamin B-1 Tab) 50 mg QAM PO 08/15/17 08:00 09/14/17 08:59 08/18/17 07:20 50 MG Diclofenac Sodium (Voltaren 1% Top Gel) 1 appln BID EXT 08/15/17 20:00 09/14/17 19:59 08/18/17 07:21 1 APPLN Insulin Glargine (Lantus Solostar Pen) 45 units DAILY SC 08/16/17 08:00 09/15/17 08:59 08/18/17 08:41 45 UNITS Gabapentin (Neurontin Cap) 100 mg TID PO 08/17/17 14:00 09/16/17 13:59 08/18/17 16:42 100 MG Ciprofloxacin (Cipro Tab) 500 mg HS PO 08/17/17 21:00 08/25/17 20:59 08/17/17 20:21 500 MG Cephalexin Monohydrate (Keflex Cap) 250 mg Q8 PO 08/17/17 22:00 08/25/17 21:59 08/18/17 16:41 250 MG Polyethylene Glycol/ Electrolytes (Golytely Soln) 16 dose TODAY@1800 PO 08/18/17 18:00 08/18/17 23:59 Objective Vital Signs Date Time Temp Pulse Resp B/P (MAP) Pulse Ox O2 Delivery O2 Flow Rate FiO2 08/18/17 08:00 94 Room Air 08/18/17 07:24 36.6 67 18 131/69 (89) 94 Room Air 08/18/17 00:00 94 Room Air 08/18/17 00:00 36.9 77 20 140/80 (100) 94 Room Air 08/17/17 20:20 69 121/71 (88) Physical Exam General Appearance: + mild distress, + pertinent finding (+yelling out in [place], seems to be in pain) Respiratory/Chest: no respiratory distress, no accessory muscle use Cardiovascular: regular rate, rhythm, no edema, no murmur Extremities: normal inspection, no pedal edema Neurologic/Psychiatric: no motor/sensory deficits, alert, normal mood/affect Laboratory Results Last 24 Hours Test 08/17/17 20:32 08/18/17 07:03 08/18/17 07:38 08/18/17 11:21 Bedside Glucose 135 mg/dl 81 mg/dl 72 mg/dl White Blood Count 12.72 K/uL Red Blood Count 2.90 M/uL Hemoglobin 9.2 g/dL Hematocrit 27.6 % Mean Corpuscular Volume 95.2 fL Mean Corpuscular Hemoglobin 31.7 pg Mean Corpuscular Hemoglobin Concent 33.3 g/dl Platelet Count 304 K/uL Mean Platelet Volume 10.1 fL Neutrophils (%) (Auto) 62.5 % Lymphocytes (%) (Auto) 23.6 % Monocytes (%) (Auto) 9.2 % Eosinophils (%) (Auto) 3.9 % Basophils (%) (Auto) 0.2 % Neutrophils # (Auto) 7.96 K/uL Lymphocytes # (Auto) 3.00 K/uL Monocytes # (Auto) 1.17 K/uL Eosinophils # (Auto) 0.49 K/uL Basophils # (Auto) 0.03 K/uL RDW Standard Deviation 50.8 fL RDW Coefficient of Variation 14.7 % Immature Granulocyte % (Auto) 0.6 % Immature Granulocyte # (Auto) 0.07 K/uL Test 08/18/17 16:46 Bedside Glucose 71 mg/dl Assessment and Plan This is a 76 year old male with a past medical history of CVA, PVD s/p surgery, insulin dependent DM2, HTN, CAD, hx. of NSTEMI - presents with LGIB, lower extremity pain LGIB - Hgb is stable - plan for prep and EGD/colonoscopy in AM (08/19) Peripheral Artery Disease - arterial dopplers - could not perform ZENA due to pain - will restart aspirin, Plavix when okay with GI - will restart statin in AM - ambulatory dysfunction due to PVD - PT/OT, patient is nearly bedbound/chair bound Insulin Dependent DM2 - continue Lantus and sliding scale - monitor BSGs with NPO status UTI - continue Cipro + Keflex DVT ppx - due to GI bleed, hold off on chemical prophylaxis - SCDs contraindicated with peripheral arterial disease - will need to use TEDs and restart subq heparin as soon as possible to prevent DVTs FULL CODE
[2017-08-18] MEDS: DOXAZosin MESYLATE TAB 2 MG TAB PO SCH (21:52)
[2017-08-18] MEDS: METOPROLOL SUCC 25MG EXT REL TAB PO SCH (21:52)
[2017-08-18] MEDS: CIPROFLOXACIN 500 MG TAB PO SCH (21:52)
[2017-08-19] MEDS: HYDROCODONE/ACETAMINOPHEN 7.5/325MG TAB PO PRN (04:55)
[2017-08-19] MEDS: CEPHALEXIN MONOHYDRATE 250 MG CAP PO SCH ×3 (04:56→20:41)
[2017-08-19 07:29] VITALS: BP 140/59; PULSE 56; TEMP 36.5; O2SAT 96
[2017-08-19] MEDS: GABAPENTIN 100 MG CAP PO SCH ×3 (08:00→20:05)
[2017-08-19] MEDS: POLYETHYLENE (MIRALAX) 17 GM PACK PO SCH ×2 (08:00→20:00)
[2017-08-19] MEDS: THIAMINE HCL 50 MG TAB PO SCH (08:00)
[2017-08-19] MEDS: PANTOprazole SOD 40 MG TAB PO SCH (08:00)
[2017-08-19] MEDS: DOCUSATE SODIUM/SENNA 50/8.6MG TAB PO SCH ×2 (08:00→20:00)
[2017-08-19] MEDS: INSULIN ASPART 100 UNITS/ML 3 ML PEN SC SCH ×4 (08:11→20:43)
[2017-08-19] MEDS: DICLOFENAC SOD 1% GEL 100 GM TUBE EXT SCH ×2 (08:13→20:05)
[2017-08-19 08:42] LABS: BASO % 0.3 %; BASO ABS # 0.03 K/uL (0-0.2); EOS % 3.6 %; EOS ABS # 0.33 K/uL (0-0.5); HEMATOCRIT 31.1 % (42-52); HEMOGLOBIN 10.5 g/dL (14.0-18.0); IG# 0.05 K/uL (0.00-0.02); LYMPH % 23.5 %; LYMPH ABS # 2.18 K/uL (1.2-3.4); MEAN CELL VOLUME 93.1 fL (80-100); MEAN CORPUSCULAR HEMOGLOBIN 31.4 pg (25-34); MEAN CORPUSCULAR HGB CONC 33.8 g/dl (32-36); MEAN PLATELET VOLUME 11.4 fL (7.4-10.4); MONO % 7.8 %; MONO ABS # 0.72 K/uL (0.11-0.59); NEUT % 64.3 %; NEUT ABS # 5.96 K/uL (1.4-6.5); PLATELET COUNT 251 K/uL (130-400); RED CELL DISTRIBUTION WIDTH CV 14.7 % (11.5-14.5); RED CELL DISTRIBUTION WIDTH SD 49.8 fL (36.4-46.3); WHITE BLOOD COUNT 9.27 K/uL (4.8-10.8)
[2017-08-19] MEDS ORDERED: NURSING VERBAL MED ORDER ONE (09:45)
[2017-08-19] MEDS: PROCHLORPERAZINE INJ 5 MG in SYRINGE 4 ML IV PRN (09:45)
--- NOTE | 2017-08-19 09:46 | Gastroenterology Progress Note ---
Progress Note Date of Service: August 19, 2017 Subjective Pt evaluation today including: conversation w/ patient, physical exam Pt was seen and examined, chart reviewed. No acute events. Completed nearly all of 2 day bowel prep. Has been having liquid stools. No black or bloody stools. Generalized abd pain today, no nausea, vomiting. Continues to have foot pain. Review of Systems Constitutional: No fever, No chills Respiratory: No shortness of breath Cardiac: No chest pain Abdomen: + pain, + diarrhea Medications Current Inpatient Medications Medications (Trade) Dose Ordered Sig/Shubham Route Start Time Stop Time Status Last Admin Dose Admin Hydromorphone HCl (Dilaudid Inj) 0.5 mg Q3H PRN IV 08/15/17 01:30 08/29/17 01:29 08/16/17 15:36 0.5 MG Glucose (Glucose 40% Gel) 15-30 GRAMS 15 GRAMS... UD PRN PO 08/15/17 01:45 09/14/17 01:44 Glucose (Glucose Chew Tab) 4-8 Tablets 4 Tabl... UD PRN PO 08/15/17 01:45 09/14/17 01:44 Dextrose (Dextrose 50% 50ML Syringe) 25-50ML 25ML FOR ... UD PRN IV 08/15/17 01:45 09/14/17 01:44 Glucagon (Glucagon Inj) 1 mg UD PRN IM 08/15/17 01:45 09/14/17 01:44 Carbohydrates (Carbohydrates For Hypoglycemia) 15-30 GRAMS 15 grams if BSG 54-69... UD PRN PO 08/15/17 01:45 09/14/17 01:44 Prochlorperazine Edisylate 5 mg/ Syringe 5 ml @ 5 mls/min Q6H PRN IV 08/15/17 02:00 09/14/17 01:59 08/15/17 09:48 5 MLS/MIN Acetaminophen (Tylenol Tab) 650 mg Q4H PRN PO 08/15/17 02:30 09/14/17 02:29 Insulin Aspart (novoLOG ASPART) SLIDING SCALE If C... ACHS SC 08/15/17 06:30 09/14/17 06:59 08/17/17 18:37 2 UNITS Doxazosin Mesylate (Cardura Tab) 2 mg HS PO 08/15/17 21:00 09/14/17 20:59 08/18/17 21:52 2 MG Acetaminophen/ Hydrocodone Bitart ([place] 7.5/325 Tab) 1 tab Q6 PRN PO 08/15/17 02:30 08/29/17 02:29 08/19/17 04:55 1 TAB Metoprolol Succinate (Toprol Xl Tab) 25 mg HS PO 08/15/17 21:00 09/14/17 20:59 08/18/17 21:52 25 MG Pantoprazole Sodium (Protonix Tab) 40 mg DAILY PO 08/15/17 08:00 09/14/17 08:59 08/18/17 07:21 40 MG Senna/Docusate Sodium (Senokot S Tab) 1 tab BID PO 08/15/17 08:00 09/14/17 08:59 08/18/17 21:51 1 TAB Polyethylene (Miralax Powder Packet) 17 gm BID PO 08/15/17 08:00 09/14/17 08:59 08/17/17 20:21 17 GM Thiamine HCl (Vitamin B-1 Tab) 50 mg QAM PO 08/15/17 08:00 09/14/17 08:59 08/18/17 07:20 50 MG Diclofenac Sodium (Voltaren 1% Top Gel) 1 appln BID EXT 08/15/17 20:00 09/14/17 19:59 08/19/17 08:13 1 APPLN Insulin Glargine (Lantus Solostar Pen) 45 units DAILY SC 08/16/17 08:00 09/15/17 08:59 08/18/17 08:41 45 UNITS Gabapentin (Neurontin Cap) 100 mg TID PO 08/17/17 14:00 09/16/17 13:59 08/18/17 21:50 100 MG Ciprofloxacin (Cipro Tab) 500 mg HS PO 08/17/17 21:00 08/25/17 20:59 08/18/17 21:52 500 MG Cephalexin Monohydrate (Keflex Cap) 250 mg Q8 PO 08/17/17 22:00 08/25/17 21:59 08/19/17 04:56 250 MG Miscellaneous Information (Nursing Verbal Med Order) 1 ea ONE ONCE N/A 08/19/17 09:45 08/19/17 09:46 UNV Objective Vital Signs Date Time Temp Pulse Resp B/P (MAP) Pulse Ox O2 Delivery O2 Flow Rate FiO2 08/19/17 07:29 36.5 56 20 140/59 (86) 96 Room Air 08/19/17 00:35 Room Air 08/18/17 16:00 Room Air Physical Exam General Appearance: no apparent distress Eyes: PERRL ENT: hearing grossly normal Neck: supple Respiratory/Chest: lungs clear Cardiovascular: regular rate, rhythm Abdomen: normal bowel sounds, soft, no organomegaly Neurologic/Psych: alert, normal mood/affect, oriented x 3 Laboratory Results Last 24 Hours Test 08/18/17 11:21 08/18/17 16:46 08/18/17 20:51 08/19/17 08:10 Bedside Glucose 72 mg/dl 71 mg/dl 82 mg/dl 73 mg/dl Test 08/19/17 08:21 White Blood Count 9.27 K/uL Red Blood Count 3.34 M/uL Hemoglobin 10.5 g/dL Hematocrit 31.1 % Mean Corpuscular Volume 93.1 fL Mean Corpuscular Hemoglobin 31.4 pg Mean Corpuscular Hemoglobin Concent 33.8 g/dl Platelet Count 251 K/uL Mean Platelet Volume 11.4 fL Neutrophils (%) (Auto) 64.3 % Lymphocytes (%) (Auto) 23.5 % Monocytes (%) (Auto) 7.8 % Eosinophils (%) (Auto) 3.6 % Basophils (%) (Auto) 0.3 % Neutrophils # (Auto) 5.96 K/uL Lymphocytes # (Auto) 2.18 K/uL Monocytes # (Auto) 0.72 K/uL Eosinophils # (Auto) 0.33 K/uL Basophils # (Auto) 0.03 K/uL RDW Standard Deviation 49.8 fL RDW Coefficient of Variation 14.7 % Immature Granulocyte % (Auto) 0.5 % Immature Granulocyte # (Auto) 0.05 K/uL Assessment and Plan 76 yr old male with w/ chronic anemia and admission CT w/ periduodenal/ peripancreatic fluid. NPO EGD/Colonoscopy today I have seen and examined the patient with INA Padron whose note reflects our findings and plan. Concern for colon malignancy given the colonoscopy 2012 with large polyp which was biopsoed but patient never had the follow up colonoscopy. EGD and colonoscopy today.
[2017-08-19] MEDS: INSULIN GLARGINE SOLOSTAR 100 UNITS/ML 3 ML PEN SC SCH (09:47)
[2017-08-19] MEDS ORDERED: FENTANYL CITRATE INJ 50 MCG/1 ML 2 ML VIAL ONE (11:29)
[2017-08-19] MEDS ORDERED: PROPOFOL IV EMULSION 10 MG/ML 20 ML VIAL ONE (11:29)
[2017-08-19] MEDS ORDERED: LIDOCAINE HCL 2% 2 ML VIAL (20MG/ML) ONE (11:29)
[2017-08-19] MEDS ORDERED: MIDAZOLAM HCL 1 MG/ML 2ML VIAL ONE (12:00)
[2017-08-19] MEDS ORDERED: KETAMINE HCL INJ 50 MG/ML 10 ML VIAL ONE (12:00)
[2017-08-19] MEDS ORDERED: EpHEDrine SULFATE INJ 50 MG/ML AMP IV PRN (12:15)
[2017-08-19] MEDS ORDERED: ATROPINE SULFATE 0.1 MG/ML 5ML SYR IV PRN (12:15)
--- NOTE | 2017-08-19 12:32 | GI REPORT ---
Patient Name: Gt Quesada Procedure Date: 08/19/2017 11:37 AM Date of : 1940 Admit Type: Inpatient Age: 76 Gender: Male Attending MD: Sagrario Eller DO Procedure: Upper GI endoscopy Providers: Sagrario Eller DO Referring MD: Mee Driver Indications: Iron deficiency anemia Medicines: Propofol per Anesthesia Complications: No immediate complications. Estimated blood loss: None. Estimated Blood Loss: Estimated blood loss: none. Procedure: Pre-Anesthesia Assessment: - Prior to the procedure, a History and Physical was performed, and patient medications, allergies and sensitivities were reviewed. The patient's tolerance of previous anesthesia was reviewed. - The risks and benefits of the procedure and the sedation options and risks were discussed with the patient. All questions were answered and informed consent was obtained. - Patient identification and proposed procedure were verified prior to the procedure by the physician and the nurse. The procedure was verified in the pre-procedure area in the procedure room. - Mental Status Examination: alert and oriented. Airway Examination: normal oropharyngeal airway and neck mobility. Respiratory Examination: clear to auscultation. CV Examination: normal. Abdominal Examination: bowel sounds present, abdomen soft and non-tender, no masses or organomegaly noted. - ASA Grade Assessment: III - A patient with severe systemic disease. After obtaining informed consent, the endoscope was passed under direct vision. Throughout the procedure, the patient's blood pressure, pulse, and oxygen saturations were monitored continuously. The scope was introduced through the mouth, and advanced to the second part of duodenum. The upper GI endoscopy was accomplished without difficulty. The patient tolerated the procedure well. Findings: The esophagus was normal. The stomach was normal. The examined duodenum was normal. Impression: - Normal esophagus. - Normal stomach. - Normal examined duodenum. - No specimens collected. Recommendation: - Perform a colonoscopy today. Sagrario Eller D.O. Sagrario Eller DO 08/19/2017 12:32:23 PM This report has been signed electronically. Note Initiated On: 08/19/2017 11:37 AM Number of Addenda: 0 I attest to the content of the Intraoperative Record and orders documented therein, exceptions below {[id number]}
--- NOTE | 2017-08-19 12:38 | GI REPORT ---
Patient Name: Gt Quesada Procedure Date: 08/19/2017 12:15 PM Date of : 1940 Admit Type: Inpatient Age: 76 Gender: Male Attending MD: Sagrario Eller DO Procedure: Colonoscopy Providers: Sagrario Eller DO Referring MD: Mee Driver Indications: High risk colon cancer surveillance: Personal history of colonic polyps, Incidental - Iron deficiency anemia Medicines: Propofol per Anesthesia Complications: No immediate complications. Estimated blood loss: None. Estimated Blood Loss: Estimated blood loss: none. Procedure: Pre-Anesthesia Assessment: - Prior to the procedure, a History and Physical was performed, and patient medications, allergies and sensitivities were reviewed. The patient's tolerance of previous anesthesia was reviewed. - The risks and benefits of the procedure and the sedation options and risks were discussed with the patient. All questions were answered and informed consent was obtained. - Patient identification and proposed procedure were verified prior to the procedure by the physician and the nurse. The procedure was verified in the pre-procedure area in the procedure room. - Mental Status Examination: alert and oriented. Airway Examination: normal oropharyngeal airway and neck mobility. Respiratory Examination: clear to auscultation. CV Examination: normal. Abdominal Examination: bowel sounds present, abdomen soft and non-tender, no masses or organomegaly noted. - ASA Grade Assessment: III - A patient with severe systemic disease. After I obtained informed consent, the scope was passed under direct vision. Throughout the procedure, the patient's blood pressure, pulse, and oxygen saturations were monitored continuously. The scope was introduced through the anus and advanced to the cecum, identified by appendiceal orifice and ileocecal valve. The colonoscopy was performed without difficulty. The patient tolerated the procedure well. The quality of the bowel preparation was inadequate. Findings: The perianal and digital rectal examinations were normal. Pertinent negatives include normal sphincter tone and no palpable rectal lesions. A large amount of semi-liquid semi-solid stool was found in the entire colon, precluding visualization. Impression: - Preparation of the colon was inadequate. - Stool in the entire examined colon. - No specimens collected. Recommendation: - Repeat colonoscopy tomorrow because the bowel preparation was poor. - clear liquids today - Repeat the prep today and repeat colonoscopy tomorrow - [facility]. Sagrario Eller D.O. Sagrario Eller, 08/19/2017 12:37:50 PM This report has been signed electronically. Note Initiated On: 08/19/2017 12:15 PM Number of Addenda: 0 I attest to the content of the Intraoperative Record and orders documented therein, exceptions below {[id number]}
--- NOTE | 2017-08-19 12:52 | Anesthesiology Progress Note ---
Anesthesia Post Op Note Date & Time August 19, 2017 at 12:52 Vital Signs Pain Intensity: 8.0 Vital Signs Past 12 Hours Date Time Temp Pulse Resp B/P (MAP) Pulse Ox O2 Delivery O2 Flow Rate FiO2 08/19/17 12:37 36.0 55 14 102/45 (64) 98 Room Air 08/19/17 11:31 36.5 60 18 134/98 (110) 96 Room Air 08/19/17 10:34 Room Air 08/19/17 07:29 36.5 56 20 140/59 (86) 96 Room Air Notes Mental Status: alert / awake / arousable, participated in evaluation Pt Amnestic to Procedure: Yes Nausea / Vomiting: adequately controlled Pain: adequately controlled Airway Patency, RR, SpO2: stable & adequate BP & HR: stable & adequate Hydration State: stable & adequate Anesthetic Complications: no major complications apparent
[2017-08-19 13:48] VITALS: BP 116/64; PULSE 61; TEMP 36; O2SAT 92
--- NOTE | 2017-08-19 14:53 | Progress Note ---
Subjective Date of Service: August 19, 2017. Subjective Pt evaluation today including: conversation w/ family, physical exam, lab review, review of studies, review of inpatient medication list Saw/examined the patient in room 414 He's resting comfortably; currently sleeping Daughter at bedside; states she's okay with the plan to repeat colonoscopy in AM Problem List Medical Problems: (1) Dehydration Status: Acute (2) Elevated troponin Status: Acute (3) Failure to thrive Status: Acute (4) Generalized weakness Status: Acute (5) Hyperglycemia Status: Acute (6) Pancreatitis Status: Acute Medications Current Inpatient Medications Medications (Trade) Dose Ordered Sig/Shubham Route Start Time Stop Time Status Last Admin Dose Admin Hydromorphone HCl (Dilaudid Inj) 0.5 mg Q3H PRN IV 08/15/17 01:30 08/29/17 01:29 08/16/17 15:36 0.5 MG Glucose (Glucose 40% Gel) 15-30 GRAMS 15 GRAMS... UD PRN PO 08/15/17 01:45 09/14/17 01:44 Glucose (Glucose Chew Tab) 4-8 Tablets 4 Tabl... UD PRN PO 08/15/17 01:45 09/14/17 01:44 Dextrose (Dextrose 50% 50ML Syringe) 25-50ML 25ML FOR ... UD PRN IV 08/15/17 01:45 09/14/17 01:44 Glucagon (Glucagon Inj) 1 mg UD PRN IM 08/15/17 01:45 09/14/17 01:44 Carbohydrates (Carbohydrates For Hypoglycemia) 15-30 GRAMS 15 grams if BSG 54-69... UD PRN PO 08/15/17 01:45 09/14/17 01:44 Prochlorperazine Edisylate 5 mg/ Syringe 5 ml @ 5 mls/min Q6H PRN IV 08/15/17 02:00 09/14/17 01:59 08/19/17 09:45 5 MLS/MIN Acetaminophen (Tylenol Tab) 650 mg Q4H PRN PO 08/15/17 02:30 09/14/17 02:29 Insulin Aspart (novoLOG ASPART) SLIDING SCALE If C... ACHS SC 08/15/17 06:30 09/14/17 06:59 08/17/17 18:37 2 UNITS Doxazosin Mesylate (Cardura Tab) 2 mg HS PO 08/15/17 21:00 09/14/17 20:59 08/18/17 21:52 2 MG Acetaminophen/ Hydrocodone Bitart ([place] 7.5/325 Tab) 1 tab Q6 PRN PO 08/15/17 02:30 08/29/17 02:29 08/19/17 04:55 1 TAB Metoprolol Succinate (Toprol Xl Tab) 25 mg HS PO 08/15/17 21:00 09/14/17 20:59 08/18/17 21:52 25 MG Pantoprazole Sodium (Protonix Tab) 40 mg DAILY PO 08/15/17 08:00 09/14/17 08:59 08/18/17 07:21 40 MG Senna/Docusate Sodium (Senokot S Tab) 1 tab BID PO 08/15/17 08:00 09/14/17 08:59 08/18/17 21:51 1 TAB Polyethylene (Miralax Powder Packet) 17 gm BID PO 08/15/17 08:00 09/14/17 08:59 08/17/17 20:21 17 GM Thiamine HCl (Vitamin B-1 Tab) 50 mg QAM PO 08/15/17 08:00 09/14/17 08:59 08/18/17 07:20 50 MG Diclofenac Sodium (Voltaren 1% Top Gel) 1 appln BID EXT 08/15/17 20:00 09/14/17 19:59 08/19/17 08:13 1 APPLN Insulin Glargine (Lantus Solostar Pen) 45 units DAILY SC 08/16/17 08:00 09/15/17 08:59 08/19/17 09:47 20 UNITS Gabapentin (Neurontin Cap) 100 mg TID PO 08/17/17 14:00 09/16/17 13:59 08/18/17 21:50 100 MG Ciprofloxacin (Cipro Tab) 500 mg HS PO 08/17/17 21:00 08/25/17 20:59 08/18/17 21:52 500 MG Cephalexin Monohydrate (Keflex Cap) 250 mg Q8 PO 08/17/17 22:00 08/25/17 21:59 08/19/17 04:56 250 MG Ephedrine Sulfate (EpHEDrine SULFATE INJ) 5 mg Q5M PRN IV 08/19/17 12:15 08/19/17 17:15 Atropine Sulfate (Atropine Sulfate 0.1mg/ml Inj) 0.5 mg Q1M PRN IV 08/19/17 12:15 08/19/17 17:15 Polyethylene Glycol/ Electrolytes (Golytely Soln) 1 dose UD PO 08/19/17 14:15 09/18/17 14:14 UNV Objective Vital Signs Date Time Temp Pulse Resp B/P (MAP) Pulse Ox O2 Delivery O2 Flow Rate FiO2 08/19/17 13:48 36.0 61 20 116/64 (81) 92 Room Air 08/19/17 13:24 65 20 121/59 (79) 95 Room Air 08/19/17 13:10 61 20 118/52 (74) 95 Room Air 08/19/17 12:55 55 16 100/46 (64) 100 Room Air 08/19/17 12:37 36.0 55 14 102/45 (64) 98 Room Air 08/19/17 11:31 36.5 60 18 134/98 (110) 96 Room Air 08/19/17 10:34 Room Air 08/19/17 07:29 36.5 56 20 140/59 (86) 96 Room Air 08/19/17 00:35 Room Air 08/18/17 16:00 Room Air Physical Exam General Appearance: no apparent distress Respiratory/Chest: no respiratory distress, no accessory muscle use Cardiovascular: regular rate, rhythm, no edema, no murmur Abdomen: normal bowel sounds, non tender, soft Laboratory Results Last 24 Hours Test 08/18/17 16:46 08/18/17 20:51 08/19/17 08:10 08/19/17 08:21 Bedside Glucose 71 mg/dl 82 mg/dl 73 mg/dl White Blood Count 9.27 K/uL Red Blood Count 3.34 M/uL Hemoglobin 10.5 g/dL Hematocrit 31.1 % Mean Corpuscular Volume 93.1 fL Mean Corpuscular Hemoglobin 31.4 pg Mean Corpuscular Hemoglobin Concent 33.8 g/dl Platelet Count 251 K/uL Mean Platelet Volume 11.4 fL Neutrophils (%) (Auto) 64.3 % Lymphocytes (%) (Auto) 23.5 % Monocytes (%) (Auto) 7.8 % Eosinophils (%) (Auto) 3.6 % Basophils (%) (Auto) 0.3 % Neutrophils # (Auto) 5.96 K/uL Lymphocytes # (Auto) 2.18 K/uL Monocytes # (Auto) 0.72 K/uL Eosinophils # (Auto) 0.33 K/uL Basophils # (Auto) 0.03 K/uL RDW Standard Deviation 49.8 fL RDW Coefficient of Variation 14.7 % Immature Granulocyte % (Auto) 0.5 % Immature Granulocyte # (Auto) 0.05 K/uL Assessment and Plan This is a 76 year old male with a past medical history of CVA, PVD s/p surgery, insulin dependent DM2, HTN, CAD, hx. of NSTEMI - presents with LGIB, lower extremity pain LGIB 08/19 - s/p EGD with no acute findings - will need repeat colonoscopy on 08/20 due to poor prep 08/18 - Hgb is stable - plan for prep and EGD/colonoscopy in AM (08/19) Peripheral Artery Disease - arterial dopplers - could not perform ZENA due to pain - will restart aspirin, Plavix when okay with GI - will restart statin in AM - ambulatory dysfunction due to PVD - PT/OT, patient is nearly bedbound/chair bound Insulin Dependent DM2 - continue Lantus and sliding scale - monitor BSGs with NPO status UTI - continue Cipro + Keflex DVT ppx - due to GI bleed, hold off on chemical prophylaxis - SCDs contraindicated with peripheral arterial disease - will need to use TEDs and restart subq heparin as soon as possible to prevent DVTs FULL CODE
[2017-08-19 15:12] VITALS: BP 114/67; PULSE 58; O2SAT 91
[2017-08-19] MEDS ORDERED: LAVAGE SOLUTION 4000ML PO ONE (15:45)
[2017-08-19] MEDS: CARBOHYDRATES FOR HYPOGLYCEMIA PO PRN ×2 (16:39→17:08)
[2017-08-19] MEDS: CIPROFLOXACIN 500 MG TAB PO SCH (20:04)
[2017-08-19] MEDS: DOXAZosin MESYLATE TAB 2 MG TAB PO SCH (20:05)
[2017-08-19] MEDS: METOPROLOL SUCC 25MG EXT REL TAB PO SCH (20:06)
[2017-08-20 00:13] VITALS: BP 122/71; PULSE 61; TEMP 36.3; O2SAT 96
[2017-08-20] MEDS: CEPHALEXIN MONOHYDRATE 250 MG CAP PO SCH ×3 (06:35→21:21)
[2017-08-20] MEDS: HYDROmorphone INJ 0.5 MG/0.5 ML SYR IV PRN (07:52)
[2017-08-20] MEDS: DICLOFENAC SOD 1% GEL 100 GM TUBE EXT SCH ×2 (07:52→21:19)
[2017-08-20] MEDS: INSULIN ASPART 100 UNITS/ML 3 ML PEN SC SCH ×4 (07:55→21:18)
[2017-08-20 08:01] LABS: BASO % 0.2 %; BASO ABS # 0.02 K/uL (0-0.2); EOS % 3.6 %; HEMATOCRIT 26.4 % (42-52); IG# 0.04 K/uL (0.00-0.02); LYMPH % 17.9 %; MEAN CORPUSCULAR HGB CONC 34.1 g/dl (32-36); MEAN PLATELET VOLUME 10.7 fL (7.4-10.4); MONO % 8.4 %; MONO ABS # 0.94 K/uL (0.11-0.59); NEUT % 69.5 %; NEUT ABS # 7.77 K/uL (1.4-6.5); PLATELET COUNT 306 K/uL (130-400); RED CELL DISTRIBUTION WIDTH CV 14.9 % (11.5-14.5); RED CELL DISTRIBUTION WIDTH SD 50.6 fL (36.4-46.3); WHITE BLOOD COUNT 11.17 K/uL (4.8-10.8)
[2017-08-20 08:08] VITALS: BP 129/84; PULSE 94; TEMP 36.6; O2SAT 96
[2017-08-20 08:28] LABS: CALCIUM 7.9 mg/dl (8.5-10.1); CREATININE 2.83 mg/dl (0.60-1.40); POTASSIUM 4.2 mmol/L (3.5-5.1)
[2017-08-20] MEDS: INSULIN GLARGINE SOLOSTAR 100 UNITS/ML 3 ML PEN SC SCH (08:49)
[2017-08-20] MEDS ORDERED: NURSING VERBAL MED ORDER ONE (09:00)
[2017-08-20] MEDS ORDERED: METHYLNALTREXONE BROMIDE INJ 12 MG/0.6 ML SYR SQ ONE (09:00)
--- NOTE | 2017-08-20 09:10 | Gastroenterology Progress Note ---
Progress Note Date of Service: August 20, 2017 Subjective Pt evaluation today including: conversation w/ patient, conversation w/ family (daughter by phone), chart review, lab review, review of inpatient medication list Review of Systems Constitutional: No fever ENT: No hearing loss Respiratory: No cough Cardiac: No chest pain Abdomen: + pain (cramping with prep), + diarrhea, No nausea, No vomiting Musculoskeletal: + problem reported (c/o heal pain) Male : No dysuria Neuro: No memory loss Psych: No depression symptoms Heme: No abnormal bleeding/bruising Endo: No fatigue Skin: No rash Medications Current Inpatient Medications Medications (Trade) Dose Ordered Sig/Shubham Route Start Time Stop Time Status Last Admin Dose Admin Hydromorphone HCl (Dilaudid Inj) 0.5 mg Q3H PRN IV 08/15/17 01:30 08/29/17 01:29 08/20/17 07:52 0.5 MG Glucose (Glucose 40% Gel) 15-30 GRAMS 15 GRAMS... UD PRN PO 08/15/17 01:45 09/14/17 01:44 Glucose (Glucose Chew Tab) 4-8 Tablets 4 Tabl... UD PRN PO 08/15/17 01:45 09/14/17 01:44 Dextrose (Dextrose 50% 50ML Syringe) 25-50ML 25ML FOR ... UD PRN IV 08/15/17 01:45 09/14/17 01:44 Glucagon (Glucagon Inj) 1 mg UD PRN IM 08/15/17 01:45 09/14/17 01:44 Carbohydrates (Carbohydrates For Hypoglycemia) 15-30 GRAMS 15 grams if BSG 54-69... UD PRN PO 08/15/17 01:45 09/14/17 01:44 08/19/17 17:08 15 GM Prochlorperazine Edisylate 5 mg/ Syringe 5 ml @ 5 mls/min Q6H PRN IV 08/15/17 02:00 09/14/17 01:59 08/19/17 09:45 5 MLS/MIN Acetaminophen (Tylenol Tab) 650 mg Q4H PRN PO 08/15/17 02:30 09/14/17 02:29 Insulin Aspart (novoLOG ASPART) SLIDING SCALE If C... ACHS SC 08/15/17 06:30 09/14/17 06:59 08/19/17 20:43 3 UNITS Doxazosin Mesylate (Cardura Tab) 2 mg HS PO 08/15/17 21:00 09/14/17 20:59 08/19/17 20:05 2 MG Acetaminophen/ Hydrocodone Bitart ([place] 7.5/325 Tab) 1 tab Q6 PRN PO 08/15/17 02:30 08/29/17 02:29 08/19/17 04:55 1 TAB Metoprolol Succinate (Toprol Xl Tab) 25 mg HS PO 08/15/17 21:00 09/14/17 20:59 08/19/17 20:06 25 MG Pantoprazole Sodium (Protonix Tab) 40 mg DAILY PO 08/15/17 08:00 09/14/17 08:59 08/18/17 07:21 40 MG Senna/Docusate Sodium (Senokot S Tab) 1 tab BID PO 08/15/17 08:00 09/14/17 08:59 08/18/17 21:51 1 TAB Polyethylene (Miralax Powder Packet) 17 gm BID PO 08/15/17 08:00 09/14/17 08:59 08/17/17 20:21 17 GM Thiamine HCl (Vitamin B-1 Tab) 50 mg QAM PO 08/15/17 08:00 09/14/17 08:59 08/18/17 07:20 50 MG Diclofenac Sodium (Voltaren 1% Top Gel) 1 appln BID EXT 08/15/17 20:00 09/14/17 19:59 08/20/17 07:52 1 APPLN Insulin Glargine (Lantus Solostar Pen) 45 units DAILY SC 08/16/17 08:00 09/15/17 08:59 08/19/17 09:47 20 UNITS Gabapentin (Neurontin Cap) 100 mg TID PO 08/17/17 14:00 09/16/17 13:59 08/19/17 20:05 100 MG Ciprofloxacin (Cipro Tab) 500 mg HS PO 08/17/17 21:00 08/25/17 20:59 08/19/17 20:04 500 MG Cephalexin Monohydrate (Keflex Cap) 250 mg Q8 PO 08/17/17 22:00 08/25/17 21:59 08/19/17 20:41 250 MG Objective Vital Signs Date Time Temp Pulse Resp B/P (MAP) Pulse Ox O2 Delivery O2 Flow Rate FiO2 08/20/17 08:08 36.6 94 16 129/84 (99) 96 Room Air 08/20/17 00:13 36.3 61 20 122/71 (88) 96 Room Air 08/20/17 00:00 Room Air 08/19/17 16:00 Room Air 08/19/17 15:12 58 20 114/67 (83) 91 Room Air 08/19/17 13:48 36.0 61 20 116/64 (81) 92 Room Air 08/19/17 13:24 65 20 121/59 (79) 95 Room Air 08/19/17 13:10 61 20 118/52 (74) 95 Room Air 08/19/17 12:55 55 16 100/46 (64) 100 Room Air 08/19/17 12:37 36.0 55 14 102/45 (64) 98 Room Air 08/19/17 11:31 36.5 60 18 134/98 (110) 96 Room Air 08/19/17 10:34 Room Air Physical Exam General Appearance: + mild distress (heal pain) ENT: pharynx normal Neck: no JVD Respiratory/Chest: lungs clear Cardiovascular: regular rate, rhythm, no JVD, no murmur Abdomen: non tender, soft Extremities: no pedal edema Neurologic/Psych: alert, normal mood/affect, oriented x 3 Skin: no jaundice Laboratory Results Last 24 Hours Test 08/19/17 16:26 08/19/17 16:57 08/19/17 17:24 08/19/17 18:06 Bedside Glucose 57 mg/dl 57 mg/dl 63 mg/dl 102 mg/dl Test 08/19/17 20:35 08/20/17 07:51 Bedside Glucose 246 mg/dl 73 mg/dl White Blood Count 11.17 K/uL Red Blood Count 2.81 M/uL Hemoglobin 9.0 g/dL Hematocrit 26.4 % Mean Corpuscular Volume 94.0 fL Mean Corpuscular Hemoglobin 32.0 pg Mean Corpuscular Hemoglobin Concent 34.1 g/dl Platelet Count 306 K/uL Mean Platelet Volume 10.7 fL Neutrophils (%) (Auto) 69.5 % Lymphocytes (%) (Auto) 17.9 % Monocytes (%) (Auto) 8.4 % Eosinophils (%) (Auto) 3.6 % Basophils (%) (Auto) 0.2 % Neutrophils # (Auto) 7.77 K/uL Lymphocytes # (Auto) 2.00 K/uL Monocytes # (Auto) 0.94 K/uL Eosinophils # (Auto) 0.40 K/uL Basophils # (Auto) 0.02 K/uL RDW Standard Deviation 50.6 fL RDW Coefficient of Variation 14.9 % Immature Granulocyte % (Auto) 0.4 % Immature Granulocyte # (Auto) 0.04 K/uL Sodium Level 143 mmol/L Potassium Level 4.2 mmol/L Chloride Level 112 mmol/L Carbon Dioxide Level 20 mmol/L Anion Gap 10.0 mmol/L Blood Urea Nitrogen 24 mg/dl Creatinine 2.83 mg/dl Est Creatinine Clear Calc Drug Dose 29.6 ml/min Estimated GFR () 24.2 Estimated GFR (Non- 20.8 BUN/Creatinine Ratio 8.4 Random Glucose 65 mg/dl Calcium Level 7.9 mg/dl Assessment and Plan Mr. Quesada is a 76 yr old male with 1. Chronic anemia. 2. CT on arrival suggesting periduodenal/peripancreatic fluid. Plan 1. Due to poor prep, yesterday and minimal response to repeat prep last night and this morning, will repeat prep today with Miralax and gatoraid (cleared with PCP that OK to have a high sugar drink) and will plan for EGD/Colonoscopy on 08/21/17. All explained to pt by phone with daughter translating. 2. Spoke with daughter who prefers no narcotics as his neuropathy pain does not respond to narcotics. 3. Will give one dose of Relistor as has received Dilaudid this morning. 4. May have clear liquids today. NPO after midnight. 5. Further recommendations to follow endoscopy. I have seen and examined the patient with INA Santo whose note reflects our findings and plan. Needs another round of colon prep again today. Colonoscopy tomorrow
[2017-08-20] MEDS: POLYETHYLENE (MIRALAX) 17 GM PACK PO SCH ×4 (09:53→21:19)
[2017-08-20] MEDS: PANTOprazole SOD 40 MG TAB PO SCH (09:54)
[2017-08-20] MEDS: GABAPENTIN 100 MG CAP PO SCH ×3 (09:54→21:20)
[2017-08-20] MEDS: DOCUSATE SODIUM/SENNA 50/8.6MG TAB PO SCH ×2 (09:54→21:20)
[2017-08-20] MEDS: THIAMINE HCL 50 MG TAB PO SCH (09:55)
--- NOTE | 2017-08-20 12:37 | Progress Note ---
Subjective Date of Service: August 20, 2017. Subjective Pt evaluation today including: conversation w/ patient, physical exam, lab review, review of studies, review of inpatient medication list Saw/examined the patient in room 414 his prep went poorly; daughter on the phone he is hungry; wanting ice chips and ice cream as per nursing, her blood sugars have been on the low side Problem List Medical Problems: (1) Dehydration Status: Acute (2) Elevated troponin Status: Acute (3) Failure to thrive Status: Acute (4) Generalized weakness Status: Acute (5) Hyperglycemia Status: Acute (6) Pancreatitis Status: Acute Review of Systems Cardiac: No chest pain Abdomen: + constipation Medications Current Inpatient Medications Medications (Trade) Dose Ordered Sig/Shubham Route Start Time Stop Time Status Last Admin Dose Admin Hydromorphone HCl (Dilaudid Inj) 0.5 mg Q3H PRN IV 08/15/17 01:30 08/29/17 01:29 08/20/17 07:52 0.5 MG Glucose (Glucose 40% Gel) 15-30 GRAMS 15 GRAMS... UD PRN PO 08/15/17 01:45 09/14/17 01:44 Glucose (Glucose Chew Tab) 4-8 Tablets 4 Tabl... UD PRN PO 08/15/17 01:45 09/14/17 01:44 Dextrose (Dextrose 50% 50ML Syringe) 25-50ML 25ML FOR ... UD PRN IV 08/15/17 01:45 09/14/17 01:44 Glucagon (Glucagon Inj) 1 mg UD PRN IM 08/15/17 01:45 09/14/17 01:44 Carbohydrates (Carbohydrates For Hypoglycemia) 15-30 GRAMS 15 grams if BSG 54-69... UD PRN PO 08/15/17 01:45 09/14/17 01:44 08/19/17 17:08 15 GM Prochlorperazine Edisylate 5 mg/ Syringe 5 ml @ 5 mls/min Q6H PRN IV 08/15/17 02:00 09/14/17 01:59 08/19/17 09:45 5 MLS/MIN Acetaminophen (Tylenol Tab) 650 mg Q4H PRN PO 08/15/17 02:30 09/14/17 02:29 Insulin Aspart (novoLOG ASPART) SLIDING SCALE If C... ACHS SC 08/15/17 06:30 09/14/17 06:59 08/19/17 20:43 3 UNITS Doxazosin Mesylate (Cardura Tab) 2 mg HS PO 08/15/17 21:00 09/14/17 20:59 08/19/17 20:05 2 MG Acetaminophen/ Hydrocodone Bitart (Needles 7.5/325 Tab) 1 tab Q6 PRN PO 08/15/17 02:30 08/29/17 02:29 08/19/17 04:55 1 TAB Metoprolol Succinate (Toprol Xl Tab) 25 mg HS PO 08/15/17 21:00 09/14/17 20:59 08/19/17 20:06 25 MG Pantoprazole Sodium (Protonix Tab) 40 mg DAILY PO 08/15/17 08:00 09/14/17 08:59 08/20/17 09:54 40 MG Senna/Docusate Sodium (Senokot S Tab) 1 tab BID PO 08/15/17 08:00 09/14/17 08:59 08/20/17 09:54 1 TAB Polyethylene (Miralax Powder Packet) 17 gm BID PO 08/15/17 08:00 09/14/17 08:59 08/20/17 09:53 17 GM Thiamine HCl (Vitamin B-1 Tab) 50 mg QAM PO 08/15/17 08:00 09/14/17 08:59 08/20/17 09:55 50 MG Diclofenac Sodium (Voltaren 1% Top Gel) 1 appln BID EXT 08/15/17 20:00 09/14/17 19:59 08/20/17 07:52 1 APPLN Insulin Glargine (Lantus Solostar Pen) 45 units DAILY SC 08/16/17 08:00 09/15/17 08:59 08/19/17 09:47 20 UNITS Gabapentin (Neurontin Cap) 100 mg TID PO 08/17/17 14:00 09/16/17 13:59 08/20/17 09:54 100 MG Ciprofloxacin (Cipro Tab) 500 mg HS PO 08/17/17 21:00 08/25/17 20:59 08/19/17 20:04 500 MG Cephalexin Monohydrate (Keflex Cap) 250 mg Q8 PO 08/17/17 22:00 08/25/17 21:59 08/19/17 20:41 250 MG Bisacodyl (Dulcolax Tab) 20 mg ONE ONCE PO 08/20/17 17:00 08/20/17 17:01 Polyethylene (Miralax Powder Packet) 68 gm TODAY@0900,1700 PO 08/20/17 09:00 08/20/17 17:01 08/20/17 09:53 68 GM Objective Vital Signs Date Time Temp Pulse Resp B/P (MAP) Pulse Ox O2 Delivery O2 Flow Rate FiO2 08/20/17 08:08 36.6 94 16 129/84 (99) 96 Room Air 08/20/17 00:13 36.3 61 20 122/71 (88) 96 Room Air 08/20/17 00:00 Room Air 08/19/17 16:00 Room Air 08/19/17 15:12 58 20 114/67 (83) 91 Room Air 08/19/17 13:48 36.0 61 20 116/64 (81) 92 Room Air 08/19/17 13:24 65 20 121/59 (79) 95 Room Air 08/19/17 13:10 61 20 118/52 (74) 95 Room Air 08/19/17 12:55 55 16 100/46 (64) 100 Room Air 08/19/17 12:37 36.0 55 14 102/45 (64) 98 Room Air Physical Exam General Appearance: no apparent distress Respiratory/Chest: no respiratory distress, no accessory muscle use Cardiovascular: regular rate, rhythm, no edema, no murmur Abdomen: normal bowel sounds, non tender, soft Laboratory Results Last 24 Hours Test 08/19/17 16:26 08/19/17 16:57 08/19/17 17:24 08/19/17 18:06 Bedside Glucose 57 mg/dl 57 mg/dl 63 mg/dl 102 mg/dl Test 08/19/17 20:35 08/20/17 07:51 08/20/17 11:32 Bedside Glucose 246 mg/dl 73 mg/dl 77 mg/dl White Blood Count 11.17 K/uL Red Blood Count 2.81 M/uL Hemoglobin 9.0 g/dL Hematocrit 26.4 % Mean Corpuscular Volume 94.0 fL Mean Corpuscular Hemoglobin 32.0 pg Mean Corpuscular Hemoglobin Concent 34.1 g/dl Platelet Count 306 K/uL Mean Platelet Volume 10.7 fL Neutrophils (%) (Auto) 69.5 % Lymphocytes (%) (Auto) 17.9 % Monocytes (%) (Auto) 8.4 % Eosinophils (%) (Auto) 3.6 % Basophils (%) (Auto) 0.2 % Neutrophils # (Auto) 7.77 K/uL Lymphocytes # (Auto) 2.00 K/uL Monocytes # (Auto) 0.94 K/uL Eosinophils # (Auto) 0.40 K/uL Basophils # (Auto) 0.02 K/uL RDW Standard Deviation 50.6 fL RDW Coefficient of Variation 14.9 % Immature Granulocyte % (Auto) 0.4 % Immature Granulocyte # (Auto) 0.04 K/uL Sodium Level 143 mmol/L Potassium Level 4.2 mmol/L Chloride Level 112 mmol/L Carbon Dioxide Level 20 mmol/L Anion Gap 10.0 mmol/L Blood Urea Nitrogen 24 mg/dl Creatinine 2.83 mg/dl Est Creatinine Clear Calc Drug Dose 29.6 ml/min Estimated GFR () 24.2 Estimated GFR (Non- 20.8 BUN/Creatinine Ratio 8.4 Random Glucose 65 mg/dl Calcium Level 7.9 mg/dl Assessment and Plan This is a 76 year old male with a past medical history of CVA, PVD s/p surgery, insulin dependent DM2, HTN, CAD, hx. of NSTEMI - presents with LGIB, lower extremity pain LGIB Hx. of Polyps 08/20 - appreciate GI input - will try a different prep today with Dulcolax, Gatorade and Relistor - on clear liquids, monitor blood sugars - restart aspirin, Plavix, statin after colonoscopy 08/19 - s/p EGD with no acute findings - will need repeat colonoscopy on 08/20 due to poor prep 08/18 - Hgb is stable - plan for prep and EGD/colonoscopy in AM (08/19) Peripheral Artery Disease - arterial dopplers - could not perform ZENA due to pain - will restart aspirin, Plavix when okay with GI - will restart statin in AM - ambulatory dysfunction due to PVD - PT/OT, patient is nearly bedbound/chair bound Insulin Dependent DM2 - continue Lantus and sliding scale - monitor BSGs with NPO status UTI - continue Cipro + Keflex DVT ppx - due to GI bleed, hold off on chemical prophylaxis - SCDs contraindicated with peripheral arterial disease - will need to use TEDs and restart subq heparin as soon as possible to prevent DVTs FULL CODE
[2017-08-20 15:31] VITALS: Ht 182.9 cm; Wt 115.3 kg
[2017-08-20] MEDS ORDERED: BISACODYL 5 MG TABEC PO ONE (17:00)
--- NOTE | 2017-08-20 18:18 | Cardiology Follow-Up ---
Subjective Subjective Date of Service: August 20, 2017. Pt evaluation today including: conversation w/ patient, conversation w/ family , physical exam, chart review, lab review, review of studies, review of inpatient medication list Additional Details: Patient feeling fine time of interview. Denies significant lower extremity pain. Undergoing repeat prep for hopeful endoscopy tomorrow Problem List Medical Problems: (1) Dehydration Status: Acute (2) Elevated troponin Status: Acute (3) Failure to thrive Status: Acute (4) Generalized weakness Status: Acute (5) Hyperglycemia Status: Acute (6) Pancreatitis Status: Acute Review of Systems Constitutional: No fever Respiratory: No cough Cardiac: No chest pain Abdomen: + constipation Musculoskeletal: + problem reported (c/o heal pain) Male : No dysuria Neurologic: No memory loss Psychiatric: No depression symptoms Heme: No abnormal bleeding/bruising Endo: No fatigue Skin: + problem reported Objective Vital Signs Last Vital Signs Documentation Date Time Temp Pulse Resp B/P (MAP) Pulse Ox O2 Delivery O2 Flow Rate FiO2 08/20/17 14:33 Room Air 08/20/17 08:08 36.6 94 16 129/84 (99) 96 Physical Exam: General Appearance: no apparent distress ENT: normal ENT inspection, hearing grossly normal Respiratory/Chest: no respiratory distress, no accessory muscle use Cardiovascular: regular rate, rhythm, no edema, no murmur Abdomen: normal bowel sounds, non tender, soft Extremities: normal inspection, no pedal edema, + pertinent finding ( Nonpalpable DP/PT pulses bilaterally, intact capillary refill, venous anterior pugh ulcerations dressed. No distal foot ulcerations) Neurologic/Psychiatric: no motor/sensory deficits, alert, normal mood/affect Skin: normal color, warm/dry, + pertinent finding Assessment and Plan 1. Venous lower extremity ulcerations/Suspected chronic venous insufficiency. 2. Peripheral arterial disease. 3. LGIB Anemia 4. Stage 4 chronic kidney disease. 5. UTI. 6. Type 2 diabetes. 7. History of presumed coronary artery disease post prior NSTEMI. Reviewed current lower extremity arterial duplex and prior lower extremity angiogram from 2014. Patient with monophasic Doppler waveforms in both lower extremities bilaterally. Moderate disease in distal SFA but no other significant obstructive lesions noted--previously intervened upon popliteal artery appears patent Suspect patient likely to have some degree of inflow disease, on prior angiogram does have moderate left iliac disease. However at this time no evidence of critical limb ischemia/arterial ulcerations and feel that distal tissue perfusion should be adequate for venous ulceration wound healing. In that setting no need for additional invasive testing/intervention at this time. Will consider additional venous reflux workup as an outpatient. Resume prior antiplatelet therapy when able from a GI bleeding standpoint. Will sign off at this time. Follow up with me within next month post discharge. Medications: Current Inpatient Medications Medications (Trade) Dose Ordered Sig/Shubham Route Start Time Stop Time Status Last Admin Dose Admin Hydromorphone HCl (Dilaudid Inj) 0.5 mg Q3H PRN IV 08/15/17 01:30 08/29/17 01:29 08/20/17 07:52 0.5 MG Glucose (Glucose 40% Gel) 15-30 GRAMS 15 GRAMS... UD PRN PO 08/15/17 01:45 09/14/17 01:44 Glucose (Glucose Chew Tab) 4-8 Tablets 4 Tabl... UD PRN PO 08/15/17 01:45 09/14/17 01:44 Dextrose (Dextrose 50% 50ML Syringe) 25-50ML 25ML FOR ... UD PRN IV 08/15/17 01:45 09/14/17 01:44 Glucagon (Glucagon Inj) 1 mg UD PRN IM 08/15/17 01:45 09/14/17 01:44 Carbohydrates (Carbohydrates For Hypoglycemia) 15-30 GRAMS 15 grams if BSG 54-69... UD PRN PO 08/15/17 01:45 09/14/17 01:44 08/19/17 17:08 15 GM Prochlorperazine Edisylate 5 mg/ Syringe 5 ml @ 5 mls/min Q6H PRN IV 08/15/17 02:00 09/14/17 01:59 08/19/17 09:45 5 MLS/MIN Acetaminophen (Tylenol Tab) 650 mg Q4H PRN PO 08/15/17 02:30 09/14/17 02:29 Insulin Aspart (novoLOG ASPART) SLIDING SCALE If C... ACHS SC 08/15/17 06:30 09/14/17 06:59 08/19/17 20:43 3 UNITS Doxazosin Mesylate (Cardura Tab) 2 mg HS PO 08/15/17 21:00 09/14/17 20:59 08/19/17 20:05 2 MG Acetaminophen/ Hydrocodone Bitart (Mineral 7.5/325 Tab) 1 tab Q6 PRN PO 08/15/17 02:30 08/29/17 02:29 08/19/17 04:55 1 TAB Metoprolol Succinate (Toprol Xl Tab) 25 mg HS PO 08/15/17 21:00 09/14/17 20:59 08/19/17 20:06 25 MG Pantoprazole Sodium (Protonix Tab) 40 mg DAILY PO 08/15/17 08:00 09/14/17 08:59 08/20/17 09:54 40 MG Senna/Docusate Sodium (Senokot S Tab) 1 tab BID PO 08/15/17 08:00 09/14/17 08:59 08/20/17 09:54 1 TAB Polyethylene (Miralax Powder Packet) 17 gm BID PO 08/15/17 08:00 09/14/17 08:59 08/20/17 09:53 17 GM Thiamine HCl (Vitamin B-1 Tab) 50 mg QAM PO 08/15/17 08:00 09/14/17 08:59 08/20/17 09:55 50 MG Diclofenac Sodium (Voltaren 1% Top Gel) 1 appln BID EXT 08/15/17 20:00 09/14/17 19:59 08/20/17 07:52 1 APPLN Insulin Glargine (Lantus Solostar Pen) 45 units DAILY SC 08/16/17 08:00 09/15/17 08:59 08/19/17 09:47 20 UNITS Gabapentin (Neurontin Cap) 100 mg TID PO 08/17/17 14:00 09/16/17 13:59 08/20/17 14:02 100 MG Ciprofloxacin (Cipro Tab) 500 mg HS PO 08/17/17 21:00 08/25/17 20:59 08/19/17 20:04 500 MG Cephalexin Monohydrate (Keflex Cap) 250 mg Q8 PO 08/17/17 22:00 08/25/17 21:59 08/20/17 13:07 250 MG Lab Results: 08/20/17 07:51 Red Blood Count 2.81, Mean Corpuscular Volume 94.0, Mean Corpuscular Hemoglobin 32.0, Mean Corpuscular Hemoglobin Concent 34.1, Mean Platelet Volume 10.7, Neutrophils (%) (Auto) 69.5, Lymphocytes (%) (Auto) 17.9, Monocytes (%) (Auto) 8.4, Eosinophils (%) (Auto) 3.6, Basophils (%) (Auto) 0.2, Neutrophils # (Auto) 7.77, Lymphocytes # (Auto) 2.00, Monocytes # (Auto) 0.94, Eosinophils # (Auto) 0.40, Basophils # (Auto) 0.02 08/20/17 07:51 Test 08/20/17 07:51 08/20/17 16:38 White Blood Count 11.17 K/uL (4.8-10.8) Red Blood Count 2.81 M/uL (4.7-6.1) Hemoglobin 9.0 g/dL (14.0-18.0) Hematocrit 26.4 % (42-52) Mean Corpuscular Volume 94.0 fL (80-100) Mean Corpuscular Hemoglobin 32.0 pg (25-34) Mean Corpuscular Hemoglobin Concent 34.1 g/dl (32-36) Platelet Count 306 K/uL (130-400) Mean Platelet Volume 10.7 fL (7.4-10.4) Neutrophils (%) (Auto) 69.5 % Lymphocytes (%) (Auto) 17.9 % Monocytes (%) (Auto) 8.4 % Eosinophils (%) (Auto) 3.6 % Basophils (%) (Auto) 0.2 % Neutrophils # (Auto) 7.77 K/uL (1.4-6.5) Lymphocytes # (Auto) 2.00 K/uL (1.2-3.4) Monocytes # (Auto) 0.94 K/uL (0.11-0.59) Eosinophils # (Auto) 0.40 K/uL (0-0.5) Basophils # (Auto) 0.02 K/uL (0-0.2) RDW Standard Deviation 50.6 fL (36.4-46.3) RDW Coefficient of Variation 14.9 % (11.5-14.5) Immature Granulocyte % (Auto) 0.4 % Immature Granulocyte # (Auto) 0.04 K/uL (0.00-0.02) Anion Gap 10.0 mmol/L (3-11) Est Creatinine Clear Calc Drug Dose 29.6 ml/min Estimated GFR () 24.2 Estimated GFR (Non- 20.8 BUN/Creatinine Ratio 8.4 (10-20) Calcium Level 7.9 mg/dl (8.5-10.1) Bedside Glucose 149 mg/dl (70-99)
[2017-08-20 19:00] VITALS: BP 112/68; PULSE 70; TEMP 37.2; O2SAT 85
[2017-08-20 19:37] VITALS: O2SAT 93
[2017-08-20] MEDS: CIPROFLOXACIN 500 MG TAB PO SCH (21:21)
[2017-08-20] MEDS: METOPROLOL SUCC 25MG EXT REL TAB PO SCH (21:21)
[2017-08-20] MEDS: DOXAZosin MESYLATE TAB 2 MG TAB PO SCH (21:21)
--- NOTE | 2017-08-20 23:14 | DIAGNOSTIC IMAGING REPORT ---
CHEST ONE VIEW PORTABLE HISTORY: 76 years-old Male new oxygen requirement acute shortness of breath COMPARISON: Chest radiograph 08/14/2017 TECHNIQUE: Portable AP view of the chest FINDINGS: Cardiac silhouette is mildly enlarged. Mild pulmonary vascular congestion persists without overt pulmonary edema. Subsegmental left basilar opacities with suspected trace effusions. No pneumothorax. Degenerative changes of the shoulders and spine. IMPRESSION: 1. Cardiomegaly with mild pulmonary vascular congestion. 2. Suspected trace pleural effusions with left basilar opacities favoring atelectasis. The above report was generated using voice recognition software. It may contain grammatical, syntax or spelling errors. Electronically signed by: Lyle Victor M.D. 08/20/2017 11:13 PM Dictated Date/Time: 08/20/2017 11:11 PM
[2017-08-21] VITALS: BP 141/75; PULSE 73; TEMP 36.8; O2SAT 93
[2017-08-21 06:40] LABS: BASO % 0.4 %; BASO ABS # 0.05 K/uL (0-0.2); EOS % 3.5 %; EOS ABS # 0.39 K/uL (0-0.5); HEMATOCRIT 26.6 % (42-52); IG# 0.04 K/uL (0.00-0.02); LYMPH % 21.7 %; LYMPH ABS # 2.41 K/uL (1.2-3.4); MEAN CORPUSCULAR HEMOGLOBIN 32.1 pg (25-34); MEAN CORPUSCULAR HGB CONC 33.8 g/dl (32-36); MEAN PLATELET VOLUME 10.8 fL (7.4-10.4); MONO % 9.3 %; MONO ABS # 1.04 K/uL (0.11-0.59); NEUT % 64.7 %; PLATELET COUNT 310 K/uL (130-400); RED CELL DISTRIBUTION WIDTH CV 14.9 % (11.5-14.5); WHITE BLOOD COUNT 11.13 K/uL (4.8-10.8)
[2017-08-21] MEDS: CEPHALEXIN MONOHYDRATE 250 MG CAP PO SCH ×2 (06:47→14:11)
[2017-08-21 06:50] LABS: CALCIUM 7.6 mg/dl (8.5-10.1); CREATININE 3.08 mg/dl (0.60-1.40); POTASSIUM 4.3 mmol/L (3.5-5.1)
[2017-08-21 08:42] VITALS: BP 137/78; PULSE 60; TEMP 36.6; O2SAT 96
[2017-08-21] MEDS: DICLOFENAC SOD 1% GEL 100 GM TUBE EXT SCH (09:09)
[2017-08-21] MEDS: HYDROCODONE/ACETAMINOPHEN 7.5/325MG TAB PO PRN (09:13)
[2017-08-21] MEDS: POLYETHYLENE (MIRALAX) 17 GM PACK PO SCH (09:13)
[2017-08-21] MEDS: GABAPENTIN 100 MG CAP PO SCH ×2 (09:13→14:11)
[2017-08-21] MEDS: DOCUSATE SODIUM/SENNA 50/8.6MG TAB PO SCH (09:14)
[2017-08-21] MEDS: PANTOprazole SOD 40 MG TAB PO SCH (09:14)
[2017-08-21] MEDS: THIAMINE HCL 50 MG TAB PO SCH (09:15)
[2017-08-21] MEDS ORDERED: NURSING VERBAL MED ORDER ONE ×2 (09:30→09:45)
[2017-08-21] MEDS: INSULIN GLARGINE SOLOSTAR 100 UNITS/ML 3 ML PEN SC SCH (10:12)
[2017-08-21] MEDS ORDERED: ALBUT/IPRATROP 3MG/0.5MG NEB 3 ML VIAL INH ONE (11:30)
[2017-08-21] MEDS ORDERED: LIDOCAINE HCL 2% 2 ML VIAL (20MG/ML) ONE (11:50)
[2017-08-21] MEDS ORDERED: PROPOFOL IV EMULSION 10 MG/ML 20 ML VIAL ONE ×2 (11:50→12:45)
[2017-08-21 11:51] VITALS: PULSE 60; O2SAT 98
--- NOTE | 2017-08-21 11:55 | Endo History and Physical ---
History & Physical Date of Service: August 21, 2017. Chief Complaint: anemia; h/o polyps Referring Physician: Dr. Driver History of Present Illness anemia; h/o polyps Past Medical History Diabetes, Hypertension, CVA/TIA Past Surgical History Hx Cardiac Surgery: No Hx Internal Defibrillator: No Hx Pacemaker: No Hx Abdominal Surgery: Yes (Cholecystectomy) Hx Post-Op Nausea and Vomiting: No Hx Cancer Surgery: No Hx Thoracic Surgery: No Hx Orthopedic: No Hx Urinary Tract Surgery: No Social History Smoking Status: Current Every Day Smoker Hx Substance Use: No Hx Alcohol Use: No Allergies Coded Allergies: LORETTA Inhibitors (Verified Adverse Reaction, Intermediate, ADVANCED CKD, 08/14) Angiotensin Receptor Blockers (Verified Adverse Reaction, Intermediate, ADVANCED CKD, 08/14/17) Current Medications Reported Home Medications Medications Dose Route/Sig Max Daily Dose Days Date Category Dose Instructions Vitamin B-1 (Thiamine HCl) 50 Mg Tab 50 Mg PO DAILY 08/14/17 Reported Senokot S (Sennosides-Docusate Sodium) 1 Tab Tab 1 Tab PO BID 08/14/17 Reported Miralax (Polyethylene Glycol 3350) 1 Pow Pow 17 Gm PO BID 08/14/17 Reported Protonix (Pantoprazole Sodium) 40 Mg Tab 40 Mg PO DAILY 08/14/17 Reported Toprol-Xl (Metoprolol Succinate) 25 Mg Tabcr 25 Mg PO HS 08/14/17 Reported Worden 7.5MG/325MG (Acetaminophen/Hydrocodone Bitart) Tab 1 Tab PO Q6 PRN 08/14/17 Reported PRN PAIN Neurontin (Gabapentin) 100 Mg Cap 100 Mg PO QAM 08/14/17 Reported Plavix (Clopidogrel Bisulfate) 75 Mg Tab 75 Mg PO DAILY 08/14/17 Reported Lantus Solostar Pen (Insulin Glargine) 100 Unit/ Inj Unit SQ DAILY 11/15/14 Reported Lasix (Furosemide) 40 Mg Tab 80 Mg PO DAILY 11/15/14 Reported Vitamin D (Cholecalciferol) 2,000 Unit Tab 4,000 Inter.unit PO DAILY 11/15/14 Reported Trental (Pentoxifylline) 400 Mg Tab 400 Mg PO DAILY 07/19/14 Reported Aspirin Ec (Aspirin) 81 Mg Tab 81 Mg PO DAILY 02/24/14 Reported Cardura (Doxazosin Mesylate) 2 Mg Tab 2 Mg PO DAILY 02/24/14 Reported Norvasc (Amlodipine Besylate) 10 Mg Tab 10 Mg PO DAILY 02/24/14 Reported Vital Signs Weight (Kilograms): 115.300 Height (Feet): 6 Height (Inches): 0.00 Date Time Temp Pulse Resp B/P (MAP) Pulse Ox O2 Delivery O2 Flow Rate FiO2 08/21/17 11:24 36.7 58 22 153/68 (96) 99 Room Air 4 08/21/17 08:42 36.6 60 20 137/78 (97) 96 08/21/17 08:00 Nasal Cannula 2.0 08/21/17 00:00 36.8 73 20 141/75 (97) 93 Nasal Cannula 3.0 08/21/17 00:00 Nasal Cannula 4.0 08/20/17 19:37 93 Nasal Cannula 4.0 08/20/17 19:00 37.2 70 20 112/68 (83) 85 Room Air 08/20/17 16:00 Room Air 08/20/17 14:33 Room Air Physical Exam General Appearance: WD/WN, no apparent distress Respiratory/Chest: Auscultation: expiratory wheezing Assessment and Plan colonoscopy today
[2017-08-21] MEDS: INSULIN ASPART 100 UNITS/ML 3 ML PEN SC SCH ×2 (12:00→17:40)
--- NOTE | 2017-08-21 13:00 | GI REPORT ---
Patient Name: Gt Quesada Procedure Date: 08/21/2017 12:00 PM Date of : 1940 Admit Type: Inpatient Age: 76 Gender: Male Attending MD: Sagrario Eller DO Procedure: Colonoscopy Providers: Sagrario Eller DO Referring MD: Filomena Troncoso Md Indications: High risk colon cancer surveillance: Personal history of colonic polyps Medicines: Propofol per Anesthesia Complications: No immediate complications. Estimated blood loss: Minimal. Estimated Blood Loss: Estimated blood loss was minimal. Procedure: Pre-Anesthesia Assessment: - Prior to the procedure, a History and Physical was performed, and patient medications, allergies and sensitivities were reviewed. The patient's tolerance of previous anesthesia was reviewed. - The risks and benefits of the procedure and the sedation options and risks were discussed with the patient. All questions were answered and informed consent was obtained. - Patient identification and proposed procedure were verified prior to the procedure by the physician and the nurse. The procedure was verified in the pre-procedure area in the procedure room. - Mental Status Examination: alert and oriented. Airway Examination: normal oropharyngeal airway and neck mobility. Respiratory Examination: expiratory wheezes. CV Examination: regular rate and rhythm. Abdominal Examination: bowel sounds present, abdomen soft and non-tender, no masses or organomegaly noted. - ASA Grade Assessment: IV - A patient with severe systemic disease that is a constant threat to life. After I obtained informed consent, the scope was passed under direct vision. Throughout the procedure, the patient's blood pressure, pulse, and oxygen saturations were monitored continuously. The scope was introduced through the anus and advanced to the cecum, identified by appendiceal orifice and ileocecal valve. The colonoscopy was somewhat difficult due to poor bowel prep and the patient's body habitus. Successful completion of the procedure was aided by applying abdominal pressure. The patient tolerated the procedure. The quality of the bowel preparation was poor. Findings: The perianal and digital rectal examinations were normal. Pertinent negatives include normal sphincter tone and no palpable rectal lesions. Copious quantities of semi-liquid semi-solid stool was found in the entire colon, making visualization difficult. Many multi-lobulated and sessile polyps were found in the entire colon. The polyps were 2 to 10 mm in size. These polyps were removed with a cold and hot snare. Resection and retrieval were complete. Verification of patient identification for the specimen was done by the physician and nurse using the patient's name and date. Estimated blood loss was minimal. Estimated blood loss was minimal. A tattoo was seen at 70 cm proximal to the anus. A polypoid lesion was found at 70 cm proximal to the anus. The lesion was multi-lobulated. The polyp was removed with a hot snare. Polyp resection was incomplete. The resected tissue was retrieved. Verification of patient identification for the specimen was done by the physician and nurse using the patient's name and date. Estimated blood loss was minimal. Internal hemorrhoids were found during retroflexion. The hemorrhoids were large. Impression: - Preparation of the colon was poor. - Stool in the entire examined colon. - Many many many 2 to 10 mm polyps in the entire colon. Hot and cold snare used. Resected and retrieved. - A tattoo was seen at 70 cm proximal to the anus. There is a polypoid lesion at 70 cm proximal to the anus. Tissue was removed. - Internal hemorrhoids. Recommendation: - Await pathology results. - Repeat colonoscopy for surveillance based on pathology results. - Recommend laxative daily. - No aspirin, ibuprofen, naproxen, or other non-steroidal anti-inflammatory drugs for 7 days after polyp removal. - Return to primary care physician as previously scheduled. - Discharge patient to home. Sagrario Eller D.O. Sagrario Eller DO 08/21/2017 1:00:05 PM This report has been signed electronically. Note Initiated On: 08/21/2017 12:00 PM Number of Addenda: 0 I attest to the content of the Intraoperative Record and orders documented therein, exceptions below {[id number]}
--- NOTE | 2017-08-21 13:15 | Progress Note ---
Progress Note Date of Service August 21, 2017. Progress Note Despite several days of liquids and repeated prep, bowel prep was suboptimal. Many many polyps removed. Site of prior concern visualized and portion of polypoid lesion removed. Will await path and plan for either repeat outpatient colonoscopy vs surgical resection. - Advance diet. - Will sign off. Please call with questions.
[2017-08-21 13:34] VITALS: BP 129/67; PULSE 64; TEMP 36.5; O2SAT 94
--- NOTE | 2017-08-21 14:19 | Anesthesiology Progress Note ---
Anesthesia Post Op Note Date & Time August 21, 2017 at 14:19 Vital Signs Pain Intensity: 0.0 Vital Signs Past 12 Hours Date Time Temp Pulse Resp B/P (MAP) Pulse Ox O2 Delivery O2 Flow Rate FiO2 08/21/17 13:34 36.5 64 16 129/67 (87) 94 08/21/17 13:22 60 20 136/85 (102) 97 Room Air 08/21/17 13:09 67 20 126/53 (77) 97 Room Air 08/21/17 12:55 36.7 72 20 136/62 (86) 97 Nasal Cannula 08/21/17 11:51 60 18 98 Nasal Cannula 4.0 08/21/17 11:24 36.7 58 22 153/68 (96) 99 Room Air 4 08/21/17 08:42 36.6 60 20 137/78 (97) 96 08/21/17 08:00 Nasal Cannula 2.0 Notes Mental Status: alert / awake / arousable, participated in evaluation Pt Amnestic to Procedure: Yes Nausea / Vomiting: adequately controlled Pain: adequately controlled Airway Patency, RR, SpO2: stable & adequate BP & HR: stable & adequate Hydration State: stable & adequate Anesthetic Complications: no major complications apparent
--- NOTE | 2017-08-21 15:06 | Progress Note ---
Subjective Date of Service: August 21, 2017. Subjective Pt evaluation today including: conversation w/ patient, physical exam, lab review, review of studies, review of inpatient medication list Saw/examined the patient in room 414 He's doing well had a colonoscopy earlier today; did well, no problems/issues at this time Problem List Medical Problems: (1) Dehydration Status: Acute (2) Elevated troponin Status: Acute (3) Failure to thrive Status: Acute (4) Generalized weakness Status: Acute (5) Hyperglycemia Status: Acute (6) Pancreatitis Status: Acute Review of Systems Constitutional: No fever, No chills Respiratory: No shortness of breath Cardiac: No chest pain Abdomen: No pain, No nausea, No vomiting, No diarrhea Heme: No abnormal bleeding/bruising Medications Current Inpatient Medications Medications (Trade) Dose Ordered Sig/Shubham Route Start Time Stop Time Status Last Admin Dose Admin Hydromorphone HCl (Dilaudid Inj) 0.5 mg Q3H PRN IV 08/15/17 01:30 08/29/17 01:29 08/20/17 07:52 0.5 MG Glucose (Glucose 40% Gel) 15-30 GRAMS 15 GRAMS... UD PRN PO 08/15/17 01:45 09/14/17 01:44 Glucose (Glucose Chew Tab) 4-8 Tablets 4 Tabl... UD PRN PO 08/15/17 01:45 09/14/17 01:44 Dextrose (Dextrose 50% 50ML Syringe) 25-50ML 25ML FOR ... UD PRN IV 08/15/17 01:45 09/14/17 01:44 Glucagon (Glucagon Inj) 1 mg UD PRN IM 08/15/17 01:45 09/14/17 01:44 Carbohydrates (Carbohydrates For Hypoglycemia) 15-30 GRAMS 15 grams if BSG 54-69... UD PRN PO 08/15/17 01:45 09/14/17 01:44 08/19/17 17:08 15 GM Prochlorperazine Edisylate 5 mg/ Syringe 5 ml @ 5 mls/min Q6H PRN IV 08/15/17 02:00 09/14/17 01:59 08/19/17 09:45 5 MLS/MIN Acetaminophen (Tylenol Tab) 650 mg Q4H PRN PO 08/15/17 02:30 09/14/17 02:29 Doxazosin Mesylate (Cardura Tab) 2 mg HS PO 08/15/17 21:00 09/14/17 20:59 08/20/17 21:21 2 MG Acetaminophen/ Hydrocodone Bitart (Cos Cob 7.5/325 Tab) 1 tab Q6 PRN PO 08/15/17 02:30 08/29/17 02:29 08/21/17 09:13 1 TAB Metoprolol Succinate (Toprol Xl Tab) 25 mg HS PO 08/15/17 21:00 09/14/17 20:59 08/20/17 21:21 25 MG Pantoprazole Sodium (Protonix Tab) 40 mg DAILY PO 08/15/17 08:00 09/14/17 08:59 08/21/17 09:14 40 MG Senna/Docusate Sodium (Senokot S Tab) 1 tab BID PO 08/15/17 08:00 09/14/17 08:59 08/21/17 09:14 1 TAB Polyethylene (Miralax Powder Packet) 17 gm BID PO 08/15/17 08:00 09/14/17 08:59 08/21/17 09:13 17 GM Thiamine HCl (Vitamin B-1 Tab) 50 mg QAM PO 08/15/17 08:00 09/14/17 08:59 08/21/17 09:15 50 MG Diclofenac Sodium (Voltaren 1% Top Gel) 1 appln BID EXT 08/15/17 20:00 09/14/17 19:59 08/21/17 09:09 1 APPLN Insulin Glargine (Lantus Solostar Pen) 45 units DAILY SC 08/16/17 08:00 09/15/17 08:59 08/21/17 10:12 20 UNITS Gabapentin (Neurontin Cap) 100 mg TID PO 08/17/17 14:00 09/16/17 13:59 08/21/17 14:11 100 MG Ciprofloxacin (Cipro Tab) 500 mg HS PO 08/17/17 21:00 08/25/17 20:59 08/20/17 21:21 500 MG Cephalexin Monohydrate (Keflex Cap) 250 mg Q8 PO 08/17/17 22:00 08/25/17 21:59 08/21/17 14:11 250 MG Insulin Aspart (novoLOG ASPART) SLIDING SCALE If C... Q6 SC 08/21/17 12:00 09/20/17 11:59 Objective Vital Signs Date Time Temp Pulse Resp B/P (MAP) Pulse Ox O2 Delivery O2 Flow Rate FiO2 08/21/17 13:34 36.5 64 16 129/67 (87) 94 08/21/17 13:22 60 20 136/85 (102) 97 Room Air 08/21/17 13:09 67 20 126/53 (77) 97 Room Air 08/21/17 12:55 36.7 72 20 136/62 (86) 97 Nasal Cannula 08/21/17 11:51 60 18 98 Nasal Cannula 4.0 08/21/17 11:24 36.7 58 22 153/68 (96) 99 Room Air 4 08/21/17 08:42 36.6 60 20 137/78 (97) 96 08/21/17 08:00 Nasal Cannula 2.0 08/21/17 00:00 36.8 73 20 141/75 (97) 93 Nasal Cannula 3.0 08/21/17 00:00 Nasal Cannula 4.0 08/20/17 19:37 93 Nasal Cannula 4.0 08/20/17 19:00 37.2 70 20 112/68 (83) 85 Room Air 08/20/17 16:00 Room Air Physical Exam General Appearance: no apparent distress, + obese Respiratory/Chest: chest non-tender, lungs clear, normal breath sounds, no respiratory distress, no accessory muscle use Cardiovascular: regular rate, rhythm, no edema, no gallop, no JVD, no murmur Extremities: + swelling, + pertinent finding (+tenderness, b/l lower extremities) Laboratory Results Last 24 Hours Test 08/20/17 16:38 08/20/17 20:13 08/21/17 05:55 08/21/17 08:47 Bedside Glucose 149 mg/dl 267 mg/dl 207 mg/dl White Blood Count 11.13 K/uL Red Blood Count 2.80 M/uL Hemoglobin 9.0 g/dL Hematocrit 26.6 % Mean Corpuscular Volume 95.0 fL Mean Corpuscular Hemoglobin 32.1 pg Mean Corpuscular Hemoglobin Concent 33.8 g/dl Platelet Count 310 K/uL Mean Platelet Volume 10.8 fL Neutrophils (%) (Auto) 64.7 % Lymphocytes (%) (Auto) 21.7 % Monocytes (%) (Auto) 9.3 % Eosinophils (%) (Auto) 3.5 % Basophils (%) (Auto) 0.4 % Neutrophils # (Auto) 7.20 K/uL Lymphocytes # (Auto) 2.41 K/uL Monocytes # (Auto) 1.04 K/uL Eosinophils # (Auto) 0.39 K/uL Basophils # (Auto) 0.05 K/uL RDW Standard Deviation 51.0 fL RDW Coefficient of Variation 14.9 % Immature Granulocyte % (Auto) 0.4 % Immature Granulocyte # (Auto) 0.04 K/uL Sodium Level 140 mmol/L Potassium Level 4.3 mmol/L Chloride Level 113 mmol/L Carbon Dioxide Level 21 mmol/L Anion Gap 6.0 mmol/L Blood Urea Nitrogen 20 mg/dl Creatinine 3.08 mg/dl Est Creatinine Clear Calc Drug Dose 27.2 ml/min Estimated GFR () 21.8 Estimated GFR (Non- 18.8 BUN/Creatinine Ratio 6.4 Random Glucose 188 mg/dl Calcium Level 7.6 mg/dl Magnesium Level 2.1 mg/dl Test 08/21/17 13:40 08/21/17 13:56 Bedside Glucose 155 mg/dl 150 mg/dl Assessment and Plan This is a 76 year old male with a past medical history of CVA, PVD s/p surgery, insulin dependent DM2, HTN, CAD, hx. of NSTEMI - presents with LGIB, lower extremity pain LGIB Hx. of Polyps 08/21 - multiple polyps removed - still not a clean prep - no aspirin for 7 days - will restart aspirin in 7 days, restart Plavix in 7-10 days - outpatient follow-up with PCP - will d/c with Gabapentin, also new dose of Lantus and Novolog 08/20 - appreciate GI input - will try a different prep today with Dulcolax, Gatorade and Relistor - on clear liquids, monitor blood sugars - restart aspirin, Plavix, statin after colonoscopy 08/19 - s/p EGD with no acute findings - will need repeat colonoscopy on 08/20 due to poor prep 08/18 - Hgb is stable - plan for prep and EGD/colonoscopy in AM (08/19) Peripheral Artery Disease - arterial dopplers - could not perform ZENA due to pain - will restart aspirin, Plavix when okay with GI - will restart statin in AM - ambulatory dysfunction due to PVD - PT/OT, patient is nearly bedbound/chair bound Insulin Dependent DM2 - continue Lantus and sliding scale - monitor BSGs with NPO status UTI - continue Cipro + Keflex DVT ppx - due to GI bleed, hold off on chemical prophylaxis - SCDs contraindicated with peripheral arterial disease - will need to use TEDs and restart subq heparin as soon as possible to prevent DVTs FULL CODE
[2017-08-21] MEDS ORDERED: INSDGIPEN SC (15:15)
[2017-08-21] MEDS ORDERED: VLTG EXT (15:15)
[2017-08-21] MEDS ORDERED: GABA-112 PO (15:15)
[2017-08-21] MEDS ORDERED: CPR500 PO (15:15)
[2017-08-21] MEDS ORDERED: NVLGI/PEN SQ (15:24)
[2017-08-21] MEDS ORDERED: LPT/40 PO (15:24)
--- NOTE | 2017-08-21 15:35 | Discharge Instructions ---
Discharge Instructions Date of Service August 21, 2017. Admission Reason for Admission: Complicated Uti, Hyperglycemia Discharge Discharge Diagnosis / Problem: Uncontrolled diabetes, peripheral vascular disease, colonic polyps Discharge Goals Goal(s): Decrease discomfort, Improve function, Diagnostic testing, Therapeutic intervention Activity Recommendations Activity Limitations: resume your previous activity . Instructions / Follow-Up Instructions / Follow-Up Please follow-up with Dr. Chicas on August 24 at 1:45PM * For your diabetes, you will be on Lantus 45 units at night and Novolog 5 units three times with meals - check your blood sugars and make sure they do not drop below 80 * Hold aspirin and Plavix for at least one week from today; restart afterwards * You will be started on Lipitor; take this daily; this will help your peripheral vascular disease * You will be started on Gabapentin three times a day; this is for neuropathic pain * You will be prescribed Voltaren gel - do not use this for the next week; start on August 28 to prevent bleeding * You will also be prescribed 5 more days of Cipro (antibiotic); take this once daily * Please follow-up with nephrology and gastroenterology as outpatient Current Hospital Diet Patient's current hospital diet: Diabetes Type 2 Diet, Clear Liquid Diet Discharge Diet Recommended Diet: Diabetes Type 2 Diet Procedures Procedures Performed: Colonoscopy, EGD, Dr Eller Pending Studies Studies pending at discharge: no Laboratory Results Hemoglobin A1c Test 08/14/17 23:20 Range/Units Estimated Average Glucose 286 mg/dl Hemoglobin A1c 11.6 H 4.5-5.6 % Medical Emergencies . Who to Call and When: Medical Emergencies: If at any time you feel your situation is an emergency, please call 911 immediately. . Non-Emergent Contact Non-Emergency issues call your: Primary Care Provider, Supervisor [employer], Traffic And Transport Planner . . "Provider Documentation" section prepared by Filomena Troncoso. .
--- NOTE | 2017-08-21 15:37 | Discharge Summary ---
Discharge Summary Date of Service August 21, 2017. Discharge Summary Admission Date: August 15, 2017 at 02:29 Discharge Date: August 21, 2017 Discharge Disposition: Home with services Principal Diagnosis: Lower GI Bleed Multiple Polyps Peripheral Artery Disease Insulin Dependent DM2 UTI Medication Reconciliation New Medications: Atorvastatin (Lipitor) 40 Mg Tab 40 MG PO DAILY for 30 Days, #30 TAB Insulin Aspart (Novolog Flexpen) 100 Units/Ml Inj 5 UNITS SQ TIDM for 30 Days, #1 PEN Ciprofloxacin (Ciprofloxacin HCl) 500 Mg Tab 500 MG PO HS for 5 Days, #5 TAB Diclofenac Sod (Voltaren) 100 Appln/100 Gm Gel 1 APPLN EXT BID for 30 Days, #1 TUBE Insulin Glargine (Lantus Solostar) 100 Unit/Ml Inj 45 UNITS SC DAILY for 30 Days, #5 PEN Changed Medications: Gabapentin (Neurontin) 100 Mg Cap 100 MG PO TID for 30 Days, #90 CAP (Changed from: [facility]) Continued Medications: Amlodipine (Norvasc) 10 Mg Tab 10 MG PO DAILY Aspirin (Aspirin Ec) 81 Mg Tab 81 MG PO DAILY Cholecalciferol (Vitamin D) 2,000 Unit Tab 4000 INTER.UNIT PO DAILY Clopidogrel (Plavix) 75 Mg Tab 75 MG PO DAILY, TAB Doxazosin Mesylate (Cardura) 2 Mg Tab 2 MG PO DAILY Furosemide (Lasix) 40 Mg Tab 80 MG PO DAILY, TAB Hydrocodone/Acetaminophen 7.5MG/325MG ([place] 7.5MG/325MG) Tab 1 TAB PO Q6 PRN for Pain, TAB PRN PAIN Metoprolol Succ (Toprol Xl) (Toprol-Xl) 25 Mg Tabcr 25 MG PO HS, #30 TAB Pantoprazole (Protonix) 40 Mg Tab 40 MG PO DAILY, #30 TAB Polyethylene Glycol 3350 (Miralax) 1 Pow Pow 17 GM PO BID, #255 GM Sennosides-Docusate Sodium (Senokot S) 1 Tab Tab 1 TAB PO BID, TAB Thiamine Hcl (Vitamin B-1) 50 Mg Tab 50 MG PO DAILY, TAB Discontinued Medications: Insulin Glargine (Lantus Solostar Pen) 100 Unit/ Inj UNIT SQ DAILY, ML 3 Refills Pentoxifylline (Trental) 400 Mg Tab 400 MG PO DAILY Admission Information HPI (per Admitting provider): DATE OF ADMISSION: 08/14/2017 PRIMARY CARE PHYSICIAN: Dr. Chicas. CHIEF COMPLAINT: Fall, weakness. HISTORY OF PRESENT ILLNESS: History obtained from patient, daughter, and records. History from patient limited by language barrier. Medical history is significant for history of CVA as per records, PVD status post surgery; hypertension, past tobacco abuse, DM2, insulin requiring, chronic anemia (baseline hemoglobin of 10), chronic renal insufficiency (baseline creatinine 3-4), ongoing tobacco abuse. Recent confinement last June 2015 for NSTEMI, recurrent pancreatitis. Medical management for NSTEMI. In the last year, patient has had increasing debility, trouble walking. Has not seen his family doctor for almost 2 years now due to difficulty in ambulation w chronic back pain, lower extremity neuropathy. Patient had been chair bound for about a year as per daughter. Patient did not want to follow up with PCP for a checkup. Last week, patient noted left leg swelling, which subsequently drained yellowish drainage. Increasing generalized weakness. Central abdominal discomfort, distention. Some nausea, constipated, intermittent bloody stools as per daughter, MEDICAL HISTORY: As above. SURGERIES: cholecystectomy, toe surgery. HOME MEDICATIONS: Include Protonix, Senokot, vitamin B1, gabapentin, Lantus, Toprol, Trental, aspirin, Norvasc, vitamin D, Cardura, Lasix. ALLERGIES: LORETTA INHIBITORS, ARBS. FAMILY HISTORY: There is a family history of multiple myeloma. PERSONAL AND SOCIAL HISTORY: Five cigarettes a day. No chronic intake of alcoholic beverages. Retired elementary librarian. Lives with daughter. Originally from [facility]. REVIEW OF SYSTEMS: Could not be reliably obtained. PHYSICAL EXAMINATION: VITAL SIGNS: Blood pressure was noted to be 134/68, pulse rate 83, RR 22, temperature 36.8, sats 98 on room air. GENERAL: Noted to be obese, unkempt, uncomfortable. No respiratory distress. SKIN: Pallor, warm. HEENT: Partial alopecia. Pale palpebral conjunctivae. No ptosis. Dry mucosa. NECK: Short, supple. CHEST: Decreased effort. No tenderness. HEART: Regular rate and rhythm, no murmur. ABDOMEN: distention, no overt tenderness. RECTAL: Intact sphincter, brown stool, heme positive. EXTREMITIES: Superficial wound, left lower extremity with yellow drainage, no LE tenderness, LLE swelling; venous stasis bilateral LABORATORY DATA: Hemoglobin noted to be 8.9, hematocrit 35.5, white cell count was 14.7, platelets 293. Sodium 132, potassium 3.7, chloride 102, BUN 24, creatinine 3.3, glucose was noted to be 403, alkaline phosphatase 119. Hemoglobin A1c from October 2015 was 8.7. UA, nitrite positive, WBC est, poss occult blood. CT head initial read no acute pathology CT abdomen and pelvis initial read stool burden, stable nonspecific lymphadenopathy, Postcholecystectomy CXR as per my interpretation minimal congestion, atelectasis EKG as per my interpretation rate 80 NSR LAD LAFB, no ischemia ASSESSMENT: 1. Complicated UTI, no overt sepsis, 2. Diabetic wound, left lower extremity. No overt sepsis. Rule out DVT as etiology of left leg swelling 3. DM2, insulin requiring, suboptimal control as of last outpatient hemoglobin A1c from 2015 4. Hypertension, stable. 5. [id number] anemia 2 to intermittent LGIB hx chronic anemia secondary to CKD 6. CRI, creatinine at baseline. 7. hx CVA as per records 8. hx PVD sp surgery 9. ongoing tobacco abuse. 10. Ambulatory dysfunction 2 to chronic back pain, diabetic peripheral neuropathy 11. Functional disability PLAN: GMF Follow urine cultures, IV Cefepime for UTI IV Cefepime and Doxycycline for LLE wound, cellulitis Wound care nurse consult LLE venous Dopplers rule out DVT Appropriate to hold home antiplatelets for now given intermittent LGIB causing hemoglobin drop from baseline Follow H and H. Transfuse pRBC if hemoglobin less than 8 (hx PVD) Anemia workup Inpatient GI consult LGIB as per daughter request PT, OT eval. Basal insulin, ISS BG goal 140-180, carb count coverage indicated for suboptimal blood sugar control Check hemoglobin A1c Diabetic education for patient and caregiver daughter. May benefit for pharmacy glycemic control consult. Patient to stop smoking. PT, OT eval. DVT Prophylaxis TEDS (SCDs contraindicated by hx PVD) RE GI bleed Social service RE discharge planning Full code. Patient's daughter requesting for updates from providers, Ms. Citlalli Hampton thru contact number [phone]. Hospital Course This is a 76 year old male with a past medical history of CVA, PVD s/p surgery, insulin dependent DM2, HTN, CAD, hx. of NSTEMI - presents with LGIB, lower extremity pain LGIB Hx. of Polyps 08/21 - multiple polyps removed - still not a clean prep - no aspirin for 7 days - will restart aspirin in 7 days, restart Plavix in 7-10 days - outpatient follow-up with PCP - will d/c with Gabapentin, also new dose of Lantus and Novolog 08/20 - appreciate GI input - will try a different prep today with Dulcolax, Gatorade and Relistor - on clear liquids, monitor blood sugars - restart aspirin, Plavix, statin after colonoscopy 08/19 - s/p EGD with no acute findings - will need repeat colonoscopy on 08/20 due to poor prep 08/18 - Hgb is stable - plan for prep and EGD/colonoscopy in AM (08/19) Peripheral Artery Disease - arterial dopplers - could not perform ZENA due to pain - will restart aspirin, Plavix when okay with GI - will restart statin in AM - ambulatory dysfunction due to PVD - PT/OT, patient is nearly bedbound/chair bound Insulin Dependent DM2 - continue Lantus and sliding scale - monitor BSGs with NPO status UTI - continue Cipro + Keflex DVT ppx - due to GI bleed, hold off on chemical prophylaxis - SCDs contraindicated with peripheral arterial disease - will need to use TEDs and restart subq heparin as soon as possible to prevent DVTs FULL CODE Total time spent on discharge = 50 minutes This includes examination of the patient, discharge planning, medication reconciliation, and communication with other providers. Discharge Instructions Please follow-up with Dr. Chicas on August 24 at 1:45PM * For your diabetes, you will be on Lantus 45 units at night and Novolog 5 units three times with meals - check your blood sugars and make sure they do not drop below 80 * Hold aspirin and Plavix for at least one week from today; restart afterwards * You will be started on Lipitor; take this daily; this will help your peripheral vascular disease * You will be started on Gabapentin three times a day; this is for neuropathic pain * You will be prescribed Voltaren gel - do not use this for the next week; start on August 28 to prevent bleeding * You will also be prescribed 5 more days of Cipro (antibiotic); take this once daily * Please follow-up with nephrology and gastroenterology as outpatient
[2017-08-21 15:43] VITALS: BP 129/67; PULSE 64; TEMP 36.5; O2SAT 94
[2017-08-21] MEDS ORDERED: CLOP1TAB15 PO (18:11)
--- NOTE | 2017-08-25 10:22 | EDITING REQUIRED CODING QUERY ---
CODING QUERY To promote full compliance with coding requirements relating to patient care, provider participation is requested in all cases of special technical operations officer uncertainty. Please assist us with the question(s) below: Please clarify the etiology of the lower GI bleed if known or suspected. Thank you! Arturo Black [facility] Physician Response: unknown Principal Diagnosis: "_that condition established after study, to be chiefly responsible for occasioning the admission of the patient to the hospital for care." Co-Existing Principal Diagnosis: "_when two or more diagnoses equally meet the criteria for principal diagnosis as determined by the circumstances of admission, diagnostic work up, and/or therapy provided, and the Alphabetic Index, Tabular List, or another coding guideline does not provide sequencing direction, any one of the diagnoses may be sequenced first." "When the physician has documented what appears to be a current diagnosis in the body of the record, but has not included the diagnosis in the final diagnostic statement, the physician should be asked whether the diagnosis should be added." (Source [facility] 2 QTR90. p3-4)
== END 2017-08-21 18:15 | disposition home health service (06) | DRG 378 ==
LOC: EDBD 22:50 → C.EDB 22:52 → C.4E 08-15 02:29 → ENRESERV 08-15 02:41
PROVIDERS: ADMIT Internal Medicine; ATTEND Family Medicine
PROC: 0DJ08ZZ Inspection of Upper Intestinal Tract, Via Natural or Artificial Opening Endoscopic (ICD-10-PCS; principal; 2017-08-19 11:18)
PROC: 0DJD8ZZ Inspection of Lower Intestinal Tract, Via Natural or Artificial Opening Endoscopic (ICD-10-PCS; 2017-08-19 11:18)
PROC: 0DBE8ZX Excision of Large Intestine, Via Natural or Artificial Opening Endoscopic, Diagnostic (ICD-10-PCS; 2017-08-21)
DX: K92.2 Gastrointestinal hemorrhage, unspecified (principal); N39.0 Urinary tract infection, site not specified; N18.5 Chronic kidney disease, stage 5; I12.0 Hypertensive chronic kidney disease with stage 5 chronic kidney disease or end stage renal disease; L97.819 Non-pressure chronic ulcer of other part of right lower leg with unspecified severity; D50.9 Iron deficiency anemia, unspecified; E11.69 Type 2 diabetes mellitus with other specified complication; I73.9 Peripheral vascular disease, unspecified; E11.51 Type 2 diabetes mellitus with diabetic peripheral angiopathy without gangrene; I87.2 Venous insufficiency (chronic) (peripheral); D63.1 Anemia in chronic kidney disease; F17.200 Nicotine dependence, unspecified, uncomplicated; K63.5 Polyp of colon; Z88.8 Allergy status to other drugs, medicaments and biological substances; E11.65 Type 2 diabetes mellitus with hyperglycemia; R62.7 Adult failure to thrive; Z86.73 Personal history of transient ischemic attack (TIA), and cerebral infarction without residual deficits; I25.2 Old myocardial infarction; Z79.4 Long term (current) use of insulin; I25.10 Atherosclerotic heart disease of native coronary artery without angina pectoris; Z74.09 Other reduced mobility; E11.40 Type 2 diabetes mellitus with diabetic neuropathy, unspecified; B95.5 Unspecified streptococcus as the cause of diseases classified elsewhere; Z86.010 Personal history of colon polyps

== ENCOUNTER 2017-11-03 13:53 | Inpatient (IN) | payer OTHER ==
[~2017-11-03] VITALS: Ht 175.3 cm; Wt 108.1 kg
[2017-11-03] VITALS (11 sets, daily range): BP systolic 116–132; BP diastolic 57–72; PULSE 62–68; TEMP 36.4–36.9; O2SAT 90–98; BMI 35.8
[~2017-11-03 13:53] MED LIST changes: -AMLO-114 PO; +AMLO10TA3 PO; -ATOR-24 PO; -CALC0.2510 PO; +CLOP1TAB15 PO; +CPR500 PO; +GABA-112 PO; +INSDGIPEN SC; -INSUINJ4 SQ; +METO25TA3 PO; -MRLP17 PO; -NRN100 PO; +NVLGI/PEN SQ; +PANT40TA PO; -PENT400T7 PO; -PLV75 PO; +POLY335019 PO; -PRT40 PO; +THIA50TA3 PO; -THM50 PO; -TPRSR25 PO; +VLTG EXT
[2017-11-03 15:06] LABS: ISTAT CREATININE 3.5 mg/dl (0.6-1.3); ISTAT IONIZED CALCIUM 0.84 mmol/l (1.12-1.32); ISTAT POTASSIUM 5.8 mEq/L (3.3-5.0)
[2017-11-03 15:47] LABS: HEMATOCRIT 21.1 % (42-52); HEMOGLOBIN 6.8 g/dL (14.0-18.0); MEAN CELL VOLUME 91.3 fL (80-100); MEAN CORPUSCULAR HEMOGLOBIN 29.4 pg (25-34); MEAN CORPUSCULAR HGB CONC 32.2 g/dl (32-36); MEAN PLATELET VOLUME 11.1 fL (7.4-10.4); PLATELET COUNT 387 K/uL (130-400); RED CELL DISTRIBUTION WIDTH CV 17.8 % (11.5-14.5); RED CELL DISTRIBUTION WIDTH SD 58.5 fL (36.4-46.3); WHITE BLOOD COUNT 10.45 K/uL (4.8-10.8)
[2017-11-03 15:48] LABS: ALBUMIN 1.5 gm/dl (3.4-5.0); CALCIUM 7.8 mg/dl (8.5-10.1); CREATININE 3.37 mg/dl (0.60-1.40); POTASSIUM 3.6 mmol/L (3.5-5.1)
[2017-11-03 16:02] LABS: TOTAL PROTEIN 6.6 gm/dl (6.4-8.2)
[2017-11-03 16:03] LABS: BASO % 0.1 %; BASO ABS # 0.01 K/uL (0-0.2); EOS % 0.4 %; EOS ABS # 0.04 K/uL (0-0.5); IG# 0.03 K/uL (0.00-0.02); LYMPH % 14.8 %; LYMPH ABS # 1.55 K/uL (1.2-3.4); MONO % 8.3 %; MONO ABS # 0.87 K/uL (0.11-0.59); NEUT % 76.1 %; NEUT ABS # 7.95 K/uL (1.4-6.5)
--- NOTE | 2017-11-03 16:05 | DIAGNOSTIC IMAGING REPORT ---
ADDENDUM Incidentally noted that there is progressive fullness of the pancreatic head and uncinate process with potential underlying soft tissue mass as compared to prior CT studies. A pancreatic neoplastic and/or obstructing process must be considered. Electronically signed by: Rene Davis M.D. 11/03/2017 4:49 PM Dictated Date/Time: 11/03/2017 4:48 PM ORIGINAL REPORT ABD/PELVIS NO IV OR ORAL CONT CT DOSE: 1057.16 mGy.cm HISTORY: Pain abd pain TECHNIQUE: Multiaxial CT images of the abdomen and pelvis were performed without contrast. A dose lowering technique was utilized adhering to the principles of ALARA. COMPARISON STUDY: 08/15/2017 FINDINGS: Lung bases are grossly clear. Findings suggesting a component of hepatic cirrhosis. Biliary ductal distention of uncertain etiology although this represents an interval finding. Cholecystectomy. Moderate fatty replacement of the pancreas with findings of superimposed moderate pancreatitis. Mesenteric infiltrative change unaltered from the prior study. Bowel pattern is considered nonobstructive. Trace amount of air within the bladder presumably secondary to a recent catheterization procedure. Several para-aortic and mesenteric nodes unchanged in the prior study. No evidence for ascites. IMPRESSION: 1. Findings consistent with developing hepatic cirrhosis. 2. Progressive biliary ductal distention compared to the prior study. A distal obstructing process is considered. 3. Pancreatitis. 4. Infiltrative change of the mesentery unaltered from the prior study. 5. Nonobstructive bowel pattern. The above report was generated using voice recognition software. It may contain grammatical, syntax or spelling errors. Electronically signed by: Rene Davis M.D. 11/03/2017 4:03 PM Dictated Date/Time: 11/03/2017 3:58 PM
[2017-11-03] MEDS ORDERED: PANTOprazole INJ 40 MG in SYRINGE 0 ML IV ONE (16:30)
[2017-11-03 16:42] LABS: INR 1.6 (0.9-1.1); PTT PATIENT 42.7 SECONDS (21.0-31.0)
[2017-11-03] MEDS ORDERED: HYDROmorphone INJ 0.5 MG/0.5 ML SYR IV STA (16:51)
[2017-11-03] MEDS ORDERED: PIPERACILLIN/TAZOBACTAM 4.5 GM/100ML D5W IV STA (17:02)
[2017-11-03] MEDS ORDERED: PHYTONADIONE INJ 5 MG in SODIUM CHLORIDE 0.9% 50ML 50 ML IV ONE (17:15)
--- NOTE | 2017-11-03 17:18 | Gastrointestinal Consultation ---
Gastrointestinal Consultation Date of Consultation: Nov 03, 2017 Attending Physician: Dudley Arcos Consulting Physician: Jagdeep Dawson Reason for Consultation: Jaundice, elevated LFTs History of Present Illness Patient is a 77 year old male w presented to ED w jaundice starting 2 weeks ago , abd pain, minimal UOP. Pt Congolese speaking, dght Citlalli interpreting at bedside for him. Dght is his main caregiver, noticed pt turning jaundice 2 weeks ago, but he wasn't having any abd pain then. He starting having lot of abd pain recently, also yesterday only had very small amt of UOP, told by PCP to go to ED for evaluation. Labs in ED showed H/H 6.8/21. Baseline Hgb is 9-10 2 months ago. Pt's dght noticed pt's stools are reddish in color, no hematemesis. ED physician reported heme positive. He has CKD, Cr similar to baseline in 3s. His LFTs are significantly up which is new: Tbili 10, AST 300s, ALT 100s, AP not resulted yet. Lipase normal but CT abd/pelvis w/o contrast showed signs of pancreatitis. CT abd/pelvis w/o contrast: 1. Findings consistent with developing hepatic cirrhosis. 2. Progressive biliary ductal distention compared to the prior study. A distal obstructing process is considered. 3. Pancreatitis. 4. Infiltrative change of the mesentery unaltered from the prior study. 5. Nonobstructive bowel pattern. Addendum: Incidentally noted that there is progressive fullness of the pancreatic head and uncinate process with potential underlying soft tissue mass as compared to prior CT studies. A pancreatic neoplastic and/or obstructing process must be considered. Pt had hx of bile leak s/p cholecystectomy in 2014, treated w biliary stenting via ERCP. He recently had EGD/colonoscopy eval in August 2017 for anemia, EGD normal. Colonoscopy w findings of hyperplastic and tubular adenoma polyps, hemorrhoids. He is a tobacco smoker, no ETOH. Only new meds recently were Plavix for CVD took 1 dose and Gabapentin for neuropathy Past Medical/Surgical History Medical Problems: (1) Dehydration Status: Acute (2) Elevated troponin Status: Acute (3) Failure to thrive Status: Acute (4) Generalized weakness Status: Acute (5) Hyperglycemia Status: Acute (6) Pancreatitis Status: Acute Past Medical History: As above; HTN, DM, Emphysema, CKD, cataract, constipation, CVA, CVD Family History None presented Social History Smoking Status: Current Every Day Smoker Alcohol Use: none Drug Use: none Marital Status: Housing Status: lives with family Occupation Status: retired Allergies Coded Allergies: LORETTA Inhibitors (Verified Adverse Reaction, Intermediate, ADVANCED CKD, ) Angiotensin Receptor Blockers (Verified Adverse Reaction, Intermediate, ADVANCED CKD, 11/03/17) Current Medications Home Meds and Scripts Medications Dose Route/Sig Max Daily Dose Days Date Category Plavix (Clopidogrel Bisulfate) 75 Mg Tab 75 Mg PO DAILY 30 08/21/17 Rx Novolog Flexpen (Insulin Aspart) 100 Units/Ml Inj 5 Units SQ TIDM 30 08/21/17 Rx Lantus Solostar (Insulin Glargine) 100 Unit/Ml Inj 45 Units SC DAILY 30 08/21/17 Rx Neurontin (Gabapentin) 100 Mg Cap 100 Mg PO TID 30 08/21/17 Rx Toprol-Xl (Metoprolol Succinate) 25 Mg Tabcr 25 Mg PO HS 08/14/17 Reported Lasix (Furosemide) 40 Mg Tab 80 Mg PO DAILY 11/15/14 Reported Vitamin D (Cholecalciferol) 2,000 Unit Tab 4,000 Inter.unit PO DAILY 11/15/14 Reported Aspirin Ec (Aspirin) 81 Mg Tab 81 Mg PO DAILY 02/24/14 Reported Cardura (Doxazosin Mesylate) 2 Mg Tab 2 Mg PO DAILY 02/24/14 Reported Norvasc (Amlodipine Besylate) 10 Mg Tab 10 Mg PO DAILY 02/24/14 Reported Review of Systems Constitutional: + see HPI Respiratory: No shortness of breath Cardiac: No chest pain Abdomen: + pain, + GI bleeding, + jaundice, + dark urine, No nausea, No vomiting Skin: + jaundice Physical Exam Date Time Temp Pulse Resp B/P (MAP) Pulse Ox O2 Delivery O2 Flow Rate FiO2 11/03/17 15:36 69 16 136/55 98 Room Air 11/03/17 14:15 70 11/03/17 13:53 37.7 87 17 126/63 95 Room Air General Appearance: + moderate distress (c/o abd and leg pains) Eyes: + pertinent finding (icteric sclera) Neck: supple, no JVD, trachea midline Respiratory/Chest: no respiratory distress, no accessory muscle use, + decreased breath sounds Cardiovascular: regular rate, rhythm, no gallop, no murmur Abdomen: normal bowel sounds, soft, + tenderness (diffuse) Extremities: normal inspection Neurologic/Psych: alert, normal mood/affect, oriented x 3 Skin: + jaundice Laboratory Results Last 24 Hours Test 11/03/17 14:57 11/03/17 15:00 11/03/17 15:11 11/03/17 16:10 Bedside Hemoglobin 7.8 g/dl Bedside Hematocrit 23 % Bedside Sodium 131 mEq/L Bedside Potassium 5.8 mEq/L Bedside Chloride 98 mEq/L Bedside Total CO2 26 mEq/l Anion Gap 14.0 mmol/L 10.0 mmol/L Bedside Blood Urea Nitrogen 38 mg/dl Bedside Creatinine 3.5 mg/dl Bedside Glucose (other) 79 mg/dl Bedside Ionized Calcium (Benjamin) 0.84 mmol/l Urine Color DK YELLOW Urine Appearance CLEAR Urine pH 6.5 Urine Specific [place] 1.014 Urine Protein 1+ Urine Glucose (UA) NEG Urine Ketones NEG Urine Occult Blood NEG Urine Nitrite NEG Urine Bilirubin 3+ Urine Urobilinogen NEG Urine Leukocyte Esterase NEG Urine WBC (Auto) 0 /hpf Urine RBC (Auto) 0-4 /hpf Urine Hyaline Casts (Auto) 1-5 /lpf Urine Epithelial Cells (Auto) 0-5 /lpf Urine Bacteria (Auto) NEG White Blood Count 10.45 K/uL Red Blood Count 2.31 M/uL Hemoglobin 6.8 g/dL Hematocrit 21.1 % Mean Corpuscular Volume 91.3 fL Mean Corpuscular Hemoglobin 29.4 pg Mean Corpuscular Hemoglobin Concent 32.2 g/dl Platelet Count 387 K/uL Mean Platelet Volume 11.1 fL Neutrophils (%) (Auto) 76.1 % Lymphocytes (%) (Auto) 14.8 % Monocytes (%) (Auto) 8.3 % Eosinophils (%) (Auto) 0.4 % Basophils (%) (Auto) 0.1 % Neutrophils # (Auto) 7.95 K/uL Lymphocytes # (Auto) 1.55 K/uL Monocytes # (Auto) 0.87 K/uL Eosinophils # (Auto) 0.04 K/uL Basophils # (Auto) 0.01 K/uL RDW Standard Deviation 58.5 fL RDW Coefficient of Variation 17.8 % Immature Granulocyte % (Auto) 0.3 % Immature Granulocyte # (Auto) 0.03 K/uL Target Cells 2+ Rouleau 1+ Sodium Level 132 mmol/L Potassium Level 3.6 mmol/L Chloride Level 96 mmol/L Carbon Dioxide Level 25 mmol/L Blood Urea Nitrogen 29 mg/dl Creatinine 3.37 mg/dl Est Creatinine Clear Calc Drug Dose 23.0 ml/min Estimated GFR () 19.4 Estimated GFR (Non- 16.8 BUN/Creatinine Ratio 8.6 Random Glucose 79 mg/dl Calcium Level 7.8 mg/dl Total Bilirubin 10.3 mg/dl Direct Bilirubin 8.9 mg/dl Aspartate Amino Transf (AST/SGOT) 367 U/L Alanine Aminotransferase (ALT/SGPT) 174 U/L Total Protein 6.6 gm/dl Albumin 1.5 gm/dl Lipase 82 U/L Prothrombin Time 16.7 SECONDS Prothromb Time International Ratio 1.6 Activated Partial Thromboplast Time 42.7 SECONDS Partial Thromboplastin Ratio 1.6 Impression Patient is a 77 year old male with initially painless jaundice 2 weeks ago, dark urine, presented to ED now w abd pain, minimal UOP. Labs showed acute on chronic anemia (Hgb 6, baseline 9-10), heme positive stools (previous EGD/ Colonoscopy in August 2017 w benign findings), new LFT elevation. CT abd/pelvis w/ o contrast concerning for pancreatitis, pancreas fullness ? soft tissue mass, ? developing cirrhosis though unlikely. Plan - Give blood transfusion , monitor H/H. - Correct electrolytes - IVF support with Lactated Ringers given pancreatitis. Would recommend bolus and then rate of 150ml/hr - Keep NPO after midnight for potential EUS/ERCP tomorrow (pending OR time and staff availability to be determined early tomorrow morning). - We decided to defer MRCP given pt may not be able to stay still for the test and also it may not necessarily change our plan of care. ATTESTATION: I have performed a history and physical examination of this patient and reviewed the electronic record. Specifically on history onset of jaundice was painless at least two weeks ago, and on physical examination there is moderate diffuse abdominal tenderness. I have reviewed his CT scans in detail with Dr. Davis in radiology. There appears to be fullness in the head of the pancreas that is associated with new (since 08/2017) cutoff of the CBD and proximal dilation, although scans are limited due to the lack of IV contrast. These findings are suspicious for pancreatic carcinoma. I have arrange for followup with EUS/ERCP by Dr. Kaye. I have discussed the case with INA Mccauley. The above note reflects my findings, conclusions, and recommendations. Jagdeep Dawson MD
--- NOTE | 2017-11-03 17:41 | History and Physical ---
History & Physical Date & Time of Service: Nov 03, 2017 at 17:41 Chief Complaint: Jaundice/Renal Failure/Increased Weakness Primary Care Physician: Rosemary Chicas D.O. History of Present Illness Source: patient, family (history obtained from daughter ), clinic records, hospital records This is a 77-year-old male with a PMH of DM II, PAD, HTN, anemia of chronic disease, CKD V, history of CVA and recent lower GI bleed who presents from home with urinary symptoms. Per daughter, Citlalli, patient began to have dark in the urine and decreased output earlier this week. Over the last few days, patient has become lethargic and has complained of near syncope as well as nausea. Also notes jaundice beginning 2 weeks ago that was painless until a few days ago , when he started to have dull mid-epigastric pain. Denies any diarrhea or constipation. Due to patient's incontinence, it is been difficult for her daughter to evaluate the color of stool but states that has been reddish brown for the past few days. No bright red blood per rectum, no melena. Was admitted in August for weakness and anemia and had an EGD/colonoscopy performed. EGD was normal and colonoscopy showed hyperplastic and tubular adenoma polyps that were resected. Has a history of CKD V for which he follows with nephrology. Baseline creatinine is in the mid 3s. Other GI history includes a bile leak in 2014 s/p cholecystectomy and biliary stenting by ERCP. Due to history of CVA, Plavix was initiated during a few months ago. Patient has only had one dose of Plavix in the past 2 weeks. Smokes 4 cigarettes daily, which is a significant decrease from previously. In the ED, patient was found to be severely anemic with hemoglobin of 6.8. Creatinine is at baseline at 3.37. Liver profile with the following abnormalities: T bili of 10, D bili of 8.9, AST of 367, ALT of 174. Past Medical/Surgical History Medical Problems: (1) Anemia of chronic disease Status: Chronic (2) Anxiety Status: Chronic (3) CKD (chronic kidney disease), stage V Status: Chronic (4) DM type 2 (diabetes mellitus, type 2) Status: Chronic (5) History of CVA (cerebrovascular accident) Status: Chronic (6) HTN (hypertension) Status: Chronic (7) PAD (peripheral artery disease) Status: Chronic (8) Pancreatitis Status: Chronic (9) Spinal stenosis Status: Chronic Family History None presented Social History Smoking Status: Current Every Day Smoker Drug Use: none Marital Status: Occupational Status: retired Allergies Coded Allergies: LORETTA Inhibitors (Verified Adverse Reaction, Intermediate, ADVANCED CKD, ) Angiotensin Receptor Blockers (Verified Adverse Reaction, Intermediate, ADVANCED CKD, 11/03/17) Home Medications Scheduled Aspirin (Aspirin Ec), 81 MG PO DAILY Cholecalciferol (Vitamin D3 Ultra Strength), 1 CAP PO every other day Clopidogrel (Plavix), 75 MG PO DAILY Doxazosin Mesylate (Cardura), 2 MG PO DAILY Furosemide (Lasix), 80 MG PO DAILY Gabapentin (Neurontin), 100 MG PO TID Insulin Aspart (Novolog Flexpen), 5 UNITS SQ TIDM Insulin Glargine (Lantus Solostar), 45 UNITS SC DAILY Metoprolol Succ (Toprol Xl) (Toprol-Xl), 25 MG PO HS Review of Systems Ten systems reviewed and negative except as noted in the HPI. Physical Exam Vital Signs Date Time Temp Pulse Resp B/P (MAP) Pulse Ox O2 Delivery O2 Flow Rate FiO2 11/03/17 17:09 98 Room Air 11/03/17 17:06 74 18 158/78 98 Room Air 11/03/17 15:36 69 16 136/55 98 Room Air 11/03/17 14:15 70 11/03/17 13:53 37.7 87 17 126/63 95 Room Air General Appearance: + mild distress Head: normocephalic, atraumatic Eyes: PERRL, sclerae normal (Scleral icterus) ENT: normal ENT inspection, hearing grossly normal, pharynx normal (Dry mucous membranes) Neck: supple, thyroid normal, trachea midline Respiratory/Chest: chest non-tender, lungs clear, normal breath sounds, no respiratory distress, no accessory muscle use Cardiovascular: regular rate, rhythm, normal peripheral pulses Abdomen/GI: soft, no organomegaly, + tenderness (Mid-epigastrium TTP. No guarding.) Extremities/Musculoskelatal: normal inspection, no calf tenderness, + swelling (Trace bilateral lower extremity edema) Neurologic/Psych: no motor/sensory deficits, alert, normal mood/affect, oriented x 3 Skin: warm/dry, no rash, + jaundice, + pertinent finding (Sacral ulcer, multiple ulcers with eschar on anterior pugh, bilateral feet/toes ) Diagnostics Laboratory Results Results Past 24 Hours Test 11/03/17 14:57 11/03/17 15:00 11/03/17 15:11 11/03/17 16:10 Range/Units Bedside Hemoglobin 7.8 14.0-18.0 g/dl Bedside Hematocrit 23 42-52 % Bedside Sodium 131 135-144 mEq/L Bedside Potassium 5.8 3.3-5.0 mEq/L Bedside Chloride 98 101-112 mEq/L Bedside Total CO2 26 24-31 mEq/l Anion Gap 14.0 10.0 3-11 mmol/L Bedside Blood Urea Nitrogen 38 7-18 mg/dl Bedside Creatinine 3.5 0.6-1.3 mg/dl Bedside Glucose (other) 79 70-99 mg/dl Bedside Ionized Calcium (Benjamin) 0.84 1.12-1.32 mmol/l Urine Color DK YELLOW Urine Appearance CLEAR CLEAR Urine pH 6.5 4.5-7.5 Urine Specific [place] 1.014 1.000-1.030 Urine Protein 1+ NEG Urine Glucose (UA) NEG NEG Urine Ketones NEG NEG Urine Occult Blood NEG NEG Urine Nitrite NEG NEG Urine Bilirubin 3+ NEG Urine Urobilinogen NEG NEG Urine Leukocyte Esterase NEG NEG Urine WBC (Auto) 0 0-5 /hpf Urine RBC (Auto) 0-4 0-4 /hpf Urine Hyaline Casts (Auto) 1-5 0-5 /lpf Urine Epithelial Cells (Auto) 0-5 0-5 /lpf Urine Bacteria (Auto) NEG NEG White Blood Count 10.45 4.8-10.8 K/uL Red Blood Count 2.31 4.7-6.1 M/uL Hemoglobin 6.8 14.0-18.0 g/dL Hematocrit 21.1 42-52 % Mean Corpuscular Volume 91.3 80-100 fL Mean Corpuscular Hemoglobin 29.4 25-34 pg Mean Corpuscular Hemoglobin Concent 32.2 32-36 g/dl Platelet Count 387 130-400 K/uL Mean Platelet Volume 11.1 7.4-10.4 fL Neutrophils (%) (Auto) 76.1 % Lymphocytes (%) (Auto) 14.8 % Monocytes (%) (Auto) 8.3 % Eosinophils (%) (Auto) 0.4 % Basophils (%) (Auto) 0.1 % Neutrophils # (Auto) 7.95 1.4-6.5 K/uL Lymphocytes # (Auto) 1.55 1.2-3.4 K/uL Monocytes # (Auto) 0.87 0.11-0.59 K/uL Eosinophils # (Auto) 0.04 0-0.5 K/uL Basophils # (Auto) 0.01 0-0.2 K/uL RDW Standard Deviation 58.5 36.4-46.3 fL RDW Coefficient of Variation 17.8 11.5-14.5 % Immature Granulocyte % (Auto) 0.3 % Immature Granulocyte # (Auto) 0.03 0.00-0.02 K/uL Target Cells 2+ Rouleau 1+ Sodium Level 132 136-145 mmol/L Potassium Level 3.6 3.5-5.1 mmol/L Chloride Level 96 98-107 mmol/L Carbon Dioxide Level 25 21-32 mmol/L Blood Urea Nitrogen 29 7-18 mg/dl Creatinine 3.37 0.60-1.40 mg/dl Est Creatinine Clear Calc Drug Dose 23.0 ml/min Estimated GFR () 19.4 Estimated GFR (Non- 16.8 BUN/Creatinine Ratio 8.6 10-20 Random Glucose 79 70-99 mg/dl Calcium Level 7.8 8.5-10.1 mg/dl Total Bilirubin 10.3 0.2-1 mg/dl Direct Bilirubin 8.9 0-0.2 mg/dl Aspartate Amino Transf (AST/SGOT) 367 15-37 U/L Alanine Aminotransferase (ALT/SGPT) 174 12-78 U/L Total Protein 6.6 6.4-8.2 gm/dl Albumin 1.5 3.4-5.0 gm/dl Lipase 82 73-393 U/L Prothrombin Time 16.7 9.0-12.0 SECONDS Prothromb Time International Ratio 1.6 0.9-1.1 Activated Partial Thromboplast Time 42.7 21.0-31.0 SECONDS Partial Thromboplastin Ratio 1.[address] abd/pelvis: IMPRESSION: 1. Findings consistent with developing hepatic cirrhosis. 2. Progressive biliary ductal distention compared to the prior study. A distal obstructing process is considered. 3. Pancreatitis. 4. Infiltrative change of the mesentery unaltered from the prior study. 5. Nonobstructive bowel pattern. EKG Normal sinus rhythm at 64 bpm. Left axis deviation. Prolonged QT. No change from prior EKG Impression Assessment and Plan This is a 77-year-old male with a PMH of DM II, PAD, HTN, anemia of chronic disease, CKD V, history of CVA and recent lower GI bleed who presents from home with urinary symptoms and was found to have progressive biliary ductal distention, pancreatitis and severe blood loss anemia. Progressive biliary ductal distention -Painless jaundice x 2 weeks, diffuse abd pain x few days -Febrile at 37.7 in ED. Hemodynamically stable. -New liver labwork abnormalities (T bili of 10, D bili of 8.9, AST of 367, ALT of 174) -Lipase is wnl -CT abd/pelvis with -1. Findings consistent with developing hepatic cirrhosis. -2. Progressive biliary ductal distention compared to the prior study. A distal obstructing process is considered. 3. Pancreatitis. 4. Infiltrative change of the mesentery unaltered from the prior study. 5. Nonobstructive bowel pattern. -GI consulted -Concerned about ?pancreatic fullness, possible mass. Less concern for hepatitis, hepatic cirrhosis -Keep NPO after midnight for potential EUS/ERCP tomorrow -IV fluids with LR at 150 ml/hr -Cover empirically with Zosyn -Repeat CBC, CMP in AM Acute blood loss anemia 2/2 lower GI bleed -Hgb of 6.8 -Heme positive rectal exam by ED physician -Daughter reports ?reddish brown stool -Type and crossed, consented for 2 units prbcs -Monitor hgb/hct overnight -Telemetry Coagulopathy -PT elevated to 16.7, PTT elevated to 42.7 -Hold aspirin and plavix -Given IV Vitamin K in ED -Repeat coags in AM DM II -A1c of 11.6 in August 2017 -Has been taking 45 U Lantus QHS -Not regularly taking Novolog -Has not eaten all day-- BSG of 78 -Initiated SSI while NPO -Add lantus coverage if indicated -BSG checks Q6H while NPO HTN -Normotensive -Not taking amlodipine at home -Hold oral Toprol, Doxazosin -Consider adding PRN IV beta javan if indicated CKD V -At baseline with Cr of 3.37, GFR of 17 H/o CVA -Hold aspirin, plavix for now PAD -Wound care consulted for ulcers located in BLE Sacral ulcer -Patient sedentary at home -Daughter has difficulty transferring patient -Wound care nurse consulted DVT Ppx: SCDs in setting of GI bleed Code status: FULL per discussion with patient, daughter PCP: Juan Francisco Dispo: Admit to telemetry. Discharge planning ordered. Patient seen in collaboration with Dr. Chu. Please see addendum. Attending Note: Patient is a 76 yr male with multiple comorbidities presents with history of urinary symptoms, darkening of Urine, decreased Urine outpatient, Jaundice, increased lethargy, dizziness, abdominal discomfort, decreased appetite, nausea , burning micturition since last few days. CT abd is suggestive of progressive biliary ductal distention, pancreatitis, progressive fullness of the pancreatic head and uncinate process with potential for malignancy. He has positive FOBT in ED, His LFTs are elevated. Physical Exam: Vitals signs as noted above General Appearance:Moderately built and nourished, no apparent distress, + Lethargy Head: normocephalic, Atraumatic Eyes: normal inspection, EOMI, PERRL, +Icteric Neck: supple, Trachea midline Respiratory/Chest: Decreased breath sounds, CTA Cardiovascular: S1, S2, No murmur Abdomen/GI:Soft, Diffuse tender, Bowel sounds present Extremities/Musculoskelatal:normal inspection, 1+ edema, chronic venous stasis changes, R toe partial amputation Neurologic/Psych:AAOX3, grossly no focal neurological deficits Skin:normal color,warm Assessment and Plan: Obstructive Jaundice Possible Pancreatic malignancy Acute on chronic blood loss anemia Lipase normal Hold diuretics, aspirin, Plavix Transfuse PRBCs as above Monitor H&H GI consulted Possible EUS tomorrow Empiric Abx for now for possible choledocholithiasis though less likely IV fluids IV Protonix NPO for now IV Vitamin K given in ED for coagulopathy I personally reviewed the record. Patient is interviewed and examined at bedside. Patient's care is coordinated with Mindy Bobo PA-C. Please refer to the documentation above for details of patient's presentation and for discussion of other issues. Advanced Directives Existing Living Will: No Existing Power of Financial Services Education Consultant: No Resuscitation Status VTE Prophylaxis Will order VTE Prophylaxis: Yes
[2017-11-03] MEDS ORDERED: CHOL500015 PO (17:44)
[2017-11-03] MEDS ORDERED: POLYETHYLENE (MIRALAX) 17 GM PACK PO PRN (17:45)
[2017-11-03] MEDS ORDERED: SODIUM CHLORIDE 0.9% 1000ML 1,000 ML IV SCH (17:45)
[2017-11-03] MEDS ORDERED: PIPERACILL/TAZOBAC CONSULT ACTIVE PRN (18:39)
[2017-11-03] MEDS ORDERED: GLUCOSE 10 TABS/TUBE PO PRN (18:45)
[2017-11-03] MEDS ORDERED: GLUCAGON FOR INJ 1 MG VIAL SQ PRN (18:45)
[2017-11-03] MEDS ORDERED: GLUCOSE 40% GEL 15 GM TUBE PO PRN (18:45)
[2017-11-03] MEDS ORDERED: CARBOHYDRATES FOR HYPOGLYCEMIA PO PRN (18:45)
[2017-11-03] MEDS ORDERED: LACTATED RINGER'S 1000ML 1,000 ML IV SCH (19:30)
--- NOTE | 2017-11-03 19:37 | EMERGENCY ROOM VISIT NOTE ---
History Report prepared by Archanaibcindy: Alexa Crawford Under the Supervision of: Dr. Dudley Arcos D.O. First contact with patient: 13:53 Stated Complaint: JAUNDICE/RENAL FAILURE/INCREASED WEAKNESS History of Present Illness The patient is a 77 year old male who presents to the Emergency Room with complaints of worsening weakness. He is accompanied by his daughter and was brought to the ED via EMS. The patient only speaks Slovak so his daughter is translating. His daughter states he has had "reddish brown" urine recently. He complains of pain "near where his bladder is". The daughter states she has noticed his skin turning yellowish over the past few days. The patient had blood work yesterday at [facility], ordered by his PCP, Dr. Chicas. The patient has a history of spinal stenosis and normally sits in a recliner for most of the day as he cannot move around well because of pain. He has a history of a previous TIA and has residual left sided weakness. The patient has previously undergone a cholecystectomy but still has his appendix. Pt denies headache, change in vision, fevers above 100.4, cough or rhinorrhea, chest pain, shortness of breath, nausea, vomiting, diarrhea, and melena. Source of History: patient, family (daughter) History Limited By: language Onset: CCNA Position: other (global) Timing: worsening Associated Symptoms: + urinary symptoms, No fevers, No headache, No cough ( or rhinorrhea), No chest pain, No SOB, No nausea, No vomiting, No melena, No diarrhea Review of Systems See HPI for pertinent positives & negatives. A total of 10 systems reviewed and were otherwise negative. Past Medical & Surgical Medical Problems: (1) Anemia of chronic disease (2) Anxiety (3) CKD (chronic kidney disease), stage V (4) DM type 2 (diabetes mellitus, type 2) (5) History of CVA (cerebrovascular accident) (6) HTN (hypertension) (7) PAD (peripheral artery disease) (8) Pancreatitis (9) Spinal stenosis Family History None presented Social History Smoking Status: Current Every Day Smoker Alcohol Use: none Drug Use: none Marital Status: Housing Status: lives with family Occupation Status: retired Current/Historical Medications Scheduled Aspirin (Aspirin Ec), 81 MG PO DAILY Cholecalciferol (Vitamin D3 Ultra Strength), 1 CAP PO every other day Clopidogrel (Plavix), 75 MG PO DAILY Doxazosin Mesylate (Cardura), 2 MG PO DAILY Furosemide (Lasix), 80 MG PO DAILY Gabapentin (Neurontin), 100 MG PO TID Insulin Aspart (Novolog Flexpen), 5 UNITS SQ TIDM Insulin Glargine (Lantus Solostar), 45 UNITS SC DAILY Metoprolol Succ (Toprol Xl) (Toprol-Xl), 25 MG PO HS Allergies Coded Allergies: LORETTA Inhibitors (Verified Adverse Reaction, Intermediate, ADVANCED CKD, ) Angiotensin Receptor Blockers (Verified Adverse Reaction, Intermediate, ADVANCED CKD, 11/03/17) Physical Exam Vital Signs Date Time Temp Pulse Resp B/P (MAP) Pulse Ox O2 Delivery O2 Flow Rate FiO2 11/03/17 17:09 98 Room Air 11/03/17 17:06 74 18 158/78 98 Room Air 11/03/17 15:36 69 16 136/55 98 Room Air 11/03/17 14:15 70 11/03/17 13:53 37.7 87 17 126/63 95 Room Air Physical Exam GENERAL: Sitting up in bed, chronically ill-appearing, jaundiced, no acute distress, nontoxic EYE EXAM: Scleral icterus. OROPHARYNX: no exudate, no erythema, lips, buccal mucosa, and tongue normal and mucous membranes are moist NECK: supple, no nuchal rigidity, no adenopathy, non-tender LUNGS: Clear to auscultation. Normal chest wall mechanics HEART: no murmurs, S1 normal and S2 normal ABDOMEN: abdomen soft, non-tender, normo-active bowel sounds, no masses, no rebound or guarding. : Normal external genitalia. BACK: Back is symmetrical on inspection and there is no deformity, no midline tenderness, no CVA tenderness. Skin breakdown on sacrum SKIN: no rashes and no bruising UPPER EXTREMITIES: upper extremities are grossly normal. LOWER EXTREMITIES: No pitting edema. NEURO EXAM: Normal sensorium, translation via daughter, moving all extremities, left side is slightly weaker than the left/old. Medical Decision & Procedures ER Provider Diagnostic Interpretation: Radiology results as stated below per my review and the radiologist's interpretation: ABD/PELVIS NO IV OR ORAL CONT CT DOSE: 1057.16 mGy.cm HISTORY: Pain abd pain TECHNIQUE: Multiaxial CT images of the abdomen and pelvis were performed without contrast. A dose lowering technique was utilized adhering to the principles of ALARA. COMPARISON STUDY: 08/15/2017 FINDINGS: Lung bases are grossly clear. Findings suggesting a component of hepatic cirrhosis. Biliary ductal distention of uncertain etiology although this represents an interval finding. Cholecystectomy. Moderate fatty replacement of the pancreas with findings of superimposed moderate pancreatitis. Mesenteric infiltrative change unaltered from the prior study. Bowel pattern is considered nonobstructive. Trace amount of air within the bladder presumably secondary to a recent catheterization procedure. Several para-aortic and mesenteric nodes unchanged in the prior study. No evidence for ascites. IMPRESSION: 1. Findings consistent with developing hepatic cirrhosis. 2. Progressive biliary ductal distention compared to the prior study. A distal obstructing process is considered. 3. Pancreatitis. 4. Infiltrative change of the mesentery unaltered from the prior study. 5. Nonobstructive bowel pattern. The above report was generated using voice recognition software. It may contain grammatical, syntax or spelling errors. Electronically signed by: Rene Davis M.D. 11/03/2017 4:03 PM Laboratory Results 11/03/17 15:11 Red Blood Count 2.31, Mean Corpuscular Volume 91.3, Mean Corpuscular Hemoglobin 29.4, Mean Corpuscular Hemoglobin Concent 32.2, Mean Platelet Volume 11.1, Neutrophils (%) (Auto) 76.1, Lymphocytes (%) (Auto) 14.8, Monocytes (%) (Auto) 8.3, Eosinophils (%) (Auto) 0.4, Basophils (%) (Auto) 0.1, Neutrophils # (Auto) 7.95, Lymphocytes # (Auto) 1.55, Monocytes # (Auto) 0.87, Eosinophils # (Auto) 0.04, Basophils # (Auto) 0.01 11/03/17 15:11 Test 11/03/17 14:57 11/03/17 15:00 11/03/17 15:11 11/03/17 16:10 Bedside Hemoglobin 7.8 g/dl (14.0-18.0) Bedside Hematocrit 23 % (42-52) Bedside Sodium 131 mEq/L (135-144) Bedside Potassium 5.8 mEq/L (3.3-5.0) Bedside Chloride 98 mEq/L (101-112) Bedside Total CO2 26 mEq/l (24-31) Bedside Blood Urea Nitrogen 38 mg/dl (7-18) Bedside Creatinine 3.5 mg/dl (0.6-1.3) Bedside Glucose (other) 79 mg/dl (70-99) Bedside Ionized Calcium (Benjamin) 0.84 mmol/l (1.12-1.32) Urine Color DK YELLOW Urine Appearance CLEAR (CLEAR) Urine pH 6.5 (4.5-7.5) Urine Specific [place] 1.014 (1.000-1.030) Urine Protein 1+ (NEG) Urine Glucose (UA) NEG (NEG) Urine Ketones NEG (NEG) Urine Occult Blood NEG (NEG) Urine Nitrite NEG (NEG) Urine Bilirubin 3+ (NEG) Urine Urobilinogen NEG (NEG) Urine Leukocyte Esterase NEG (NEG) Urine WBC (Auto) 0 /hpf (0-5) Urine RBC (Auto) 0-4 /hpf (0-4) Urine Hyaline Casts (Auto) 1-5 /lpf (0-5) Urine Epithelial Cells (Auto) 0-5 /lpf (0-5) Urine Bacteria (Auto) NEG (NEG) White Blood Count 10.45 K/uL (4.8-10.8) Red Blood Count 2.31 M/uL (4.7-6.1) Hemoglobin 6.8 g/dL (14.0-18.0) Hematocrit 21.1 % (42-52) Mean Corpuscular Volume 91.3 fL (80-100) Mean Corpuscular Hemoglobin 29.4 pg (25-34) Mean Corpuscular Hemoglobin Concent 32.2 g/dl (32-36) Platelet Count 387 K/uL (130-400) Mean Platelet Volume 11.1 fL (7.4-10.4) Neutrophils (%) (Auto) 76.1 % Lymphocytes (%) (Auto) 14.8 % Monocytes (%) (Auto) 8.3 % Eosinophils (%) (Auto) 0.4 % Basophils (%) (Auto) 0.1 % Neutrophils # (Auto) 7.95 K/uL (1.4-6.5) Lymphocytes # (Auto) 1.55 K/uL (1.2-3.4) Monocytes # (Auto) 0.87 K/uL (0.11-0.59) Eosinophils # (Auto) 0.04 K/uL (0-0.5) Basophils # (Auto) 0.01 K/uL (0-0.2) RDW Standard Deviation 58.5 fL (36.4-46.3) RDW Coefficient of Variation 17.8 % (11.5-14.5) Immature Granulocyte % (Auto) 0.3 % Immature Granulocyte # (Auto) 0.03 K/uL (0.00-0.02) Target Cells 2+ Rouleau 1+ Anion Gap 10.0 mmol/L (3-11) Est Creatinine Clear Calc Drug Dose 23.0 ml/min Estimated GFR () 19.4 Estimated GFR (Non- 16.8 BUN/Creatinine Ratio 8.6 (10-20) Calcium Level 7.8 mg/dl (8.5-10.1) Total Bilirubin 10.3 mg/dl (0.2-1) Direct Bilirubin 8.9 mg/dl (0-0.2) Aspartate Amino Transf (AST/SGOT) 367 U/L (15-37) Alanine Aminotransferase (ALT/SGPT) 174 U/L (12-78) Alkaline Phosphatase 1773 U/L (45-117) Total Protein 6.6 gm/dl (6.4-8.2) Albumin 1.5 gm/dl (3.4-5.0) Lipase 82 U/L (73-393) Prothrombin Time 16.7 SECONDS (9.0-12.0) Prothromb Time International Ratio 1.6 (0.9-1.1) Activated Partial Thromboplast Time 42.7 SECONDS (21.0-31.0) Partial Thromboplastin Ratio 1.6 Laboratory results per my review. Medications Administered Medications (Trade) Dose Ordered Sig/Shubham Route Start Time Stop Time Status Last Admin Dose Admin Pantoprazole Sodium 40 mg/ Syringe 10 ml @ 5 mls/min NOW ONCE IV 11/03/17 16:30 11/03/17 16:31 DC 11/03/17 17:07 5 MLS/MIN Hydromorphone HCl (Dilaudid Inj) 0.5 mg NOW STAT IV 11/03/17 16:51 11/03/17 16:52 DC 11/03/17 17:07 0.5 MG Piperacillin Sod/ Tazobactam Sod (Zosyn Iv) 4.5 gm NOW STAT IV 11/03/17 17:02 11/03/17 17:04 DC 11/03/17 18:21 4.5 GM Phytonadione 5 mg/ Sodium Chloride 50.5 ml @ 101 mls/hr ONE ONCE IV 11/03/17 17:15 11/03/17 17:44 DC 11/03/17 17:46 101 MLS/HR ECG Per My Interpretation Indication: weakness Rate (beats per minute): 64 Rhythm: sinus rhythm Findings: left axis deviation, other (Prolonged QT) Comparison ECG Date: QT has slightly prolonged compared to previous EKG from 2017 ED Course ED COURSE: Vital signs were reviewed and showed normal vital signs. The patients medical record was reviewed The above diagnostic studies were performed and reviewed. ED treatments and interventions as stated above. 1354: The patient was evaluated in room C12. A complete history and physical examination was performed. 1457: Nursing informed the patients Creatinine is 3.6. 1619: I discussed the patient with INA Mccauley, [facility]. She recommends Clindamycin and a hospital medicine consult. The patient will be further evaluated. 1628: I discussed the patients case with Mindy Bobo PA-C, [facility] Hospitalist. The patient will be further evaluated. 1630: Pantoprazole Sodium 40 mg/Syringe 10 ml @ 5 mls/min IV. 1640: Upon reevaluation, the patient is resting comfortably. I discussed my findings with the patient and he understands and agrees with the treatment plan. 1651: Dilaudid 0.5 mg IV. Based on the patients age, coexisting illnesses, exam and lab findings the decision to treat as an inpatient was made. The patient remained stable while under my care. The patient will be evaluated for further management. Medical Decision Differential Diagnosis includes but is not limited to dehydration, stroke, anemia, hypoglycemia, hyponatremia, hypernatremia, urinary tract infection, pneumonia, bronchitis, sepsis, gastroenteritis, additional abdominal pathology, metabolic abnormalities and infections. Patient is a 77-year-old male with a past medical history of pancreatitis that presents to ER for feeling as though he has to urinate and lower abdominal pain. He was having overflow incontinence and Ramirez was placed in greater than 1200 mL's was removed. Labs were obtained and showed a hemoglobin of 6.8. This is significantly decreased from his baseline of 10-9. Rectally he was heme positive. He was given 2 units PRBCs in the ER. He was jaundice on exam and creatinine is elevated at 3.3. LFTs along with bilirubin is significantly elevated at 10. INR was 1.5. Patient was given IV vitamin K. He has only received 1 dose of Plavix in the past 10 days. I did not give him platelets. Discussed with GI who evaluated him. They recommended admission to medicine. Do question possible pancreatic mass versus choledocholithiasis. Patient was given broad-spectrum antibiotics in case any infection. He was admitted to internal medicine for further workup. Medication Reconcilliation Current Medication List: was personally reviewed by me Blood Pressure Screening Patient's blood pressure: Normal blood pressure Blood pressure disposition: Did not require urgent referral Consults Time Called: 1615 Consulting Physician: INA Mccauley [facility] Returned Call: 1619 I discussed the patient with INA Mccauley [facility]. She recommends Clindamycin and a hospital medicine consult. The patient will be further evaluated. Additional Consults: Time Called: 1626 Consulted Physician: Mindy Bobo PA-C, [facility] Returned Call: [phone] Additional Comments: I discussed the patients case with Mindy Bobo PA-C, [facility]. The patient will be further evaluated. Impression Primary Impression: GI bleed Additional Impressions: CONCEPCION (acute kidney injury) Symptomatic anemia Critical Care I have personally spent 35 minutes of critical care time in the direct management of this patient. This includes bedside care, interpretation of diagnostic studies, and testing, discussion with consultants, patient, and family members, and other required patient management activities. This 35 minutes is in excess of all separately billable procedures. Scribe Attestation The scribe's documentation has been prepared under my direction and personally reviewed by me in its entirety. I confirm that the note above accurately reflects all work, treatment, procedures, and medical decision making performed by me. Departure Information Dispostion Being Evaluated By Hospitalist Referrals Rosemary Chicas D.O. (PCP) Problem Qualifiers Primary Impression: GI bleed GI bleed type/associated pathology: unspecified gastrointestinal hemorrhage type Qualified Codes: K92.2 - Gastrointestinal hemorrhage, unspecified
[2017-11-03] MEDS: DEXTROSE 50% 50 ML SYR IV PRN (20:30)
[2017-11-03] MEDS ORDERED: INSULIN ASPART 100 UNITS/ML 3 ML PEN SC SCH (21:00)
[2017-11-03] MEDS: PANTOprazole INJ 40 MG in SYRINGE 0 ML IV SCH (21:41)
[2017-11-04 00:33] VITALS: BP 128/72; PULSE 68; TEMP 36.9; O2SAT 95
[2017-11-04 01:00] VITALS: BP 117/71; PULSE 67; TEMP 36.8; O2SAT 96
[2017-11-04] MEDS ORDERED: INSULIN ASPART 100 UNITS/ML 3 ML PEN SC ONE (01:00)
[2017-11-04] MEDS: DEXTROSE 50% 50 ML SYR IV PRN (01:11)
[2017-11-04] MEDS ORDERED: PHARMACY GLYCEMIC MGMT CONSULT PRN (01:24)
[2017-11-04] MEDS: D5W AND NSS 1,000 ML IV SCH ×2 (01:28→08:59)
[2017-11-04] MEDS ORDERED: PIPERACILL/TAZOBAC IV 4.5 GM in D5W 100 ML IV SCH (02:00)
[2017-11-04 03:55] LABS: HEMATOCRIT 26.9 % (42-52); HEMOGLOBIN 9.2 g/dL (14.0-18.0); MEAN CELL VOLUME 89.4 fL (80-100); MEAN CORPUSCULAR HEMOGLOBIN 30.6 pg (25-34); MEAN CORPUSCULAR HGB CONC 34.2 g/dl (32-36); PLATELET COUNT 326 K/uL (130-400); RED CELL DISTRIBUTION WIDTH CV 16.6 % (11.5-14.5); RED CELL DISTRIBUTION WIDTH SD 53.6 fL (36.4-46.3); WHITE BLOOD COUNT 9.68 K/uL (4.8-10.8)
[2017-11-04 03:56] VITALS: BP 136/55; PULSE 66; TEMP 36.9; O2SAT 93
[2017-11-04] MEDS ORDERED: MoRPHine SULFATE 2 MG/ML CARP IV PRN (05:30)
[2017-11-04] MEDS: INSULIN ASPART 100 UNITS/ML 3 ML PEN SC SCH ×3 (06:00→18:00)
[2017-11-04 07:56] LABS: INR 1.1 (0.9-1.1); PTT PATIENT 35.7 SECONDS (21.0-31.0)
[2017-11-04] MEDS ORDERED: INDOMETHACIN 50 MG SUPP PR ONE (08:00)
[2017-11-04 08:27] LABS: ALBUMIN 1.4 gm/dl (3.4-5.0); CALCIUM 7.6 mg/dl (8.5-10.1); CREATININE 3.14 mg/dl (0.60-1.40); POTASSIUM 3.3 mmol/L (3.5-5.1)
[2017-11-04 08:53] LABS: TOTAL PROTEIN 6.1 gm/dl (6.4-8.2)
[2017-11-04] MEDS ORDERED: HYDROmorphone INJ 0.5 MG/0.5 ML SYR IV STA (08:55)
[2017-11-04] MEDS ORDERED: HYDROmorphone INJ 0.5 MG/0.5 ML SYR IV PRN (09:00)
[2017-11-04] MEDS ORDERED: INSULIN GLARGINE SOLOSTAR 100 UNITS/ML 3 ML PEN SC SCH (09:00)
[2017-11-04] MEDS ORDERED: PROMETHAZINE HCL INJ 12.5 MG in SODIUM CHLORIDE 0.9% 50ML 50 ML IV PRN (09:00)
[2017-11-04] MEDS ORDERED: ONDANSETRON INJ 2 MG/ML 2 ML VIAL IV PRN ×2 (09:00→13:45)
[2017-11-04] MEDS ORDERED: PHARMACY GLYCEMIC MGMT CONSULT STA (09:04)
[2017-11-04] MEDS: D5NSS + 20MEQ KCL 1,000 ML IV SCH ×2 (09:21→16:32)
[2017-11-04] MEDS: POTASSIUM CHLR 10 MEQ / WTR 100 ML IV SCH ×3 (09:21→11:56)
[2017-11-04 09:43] LABS: HEMOGLOBIN A1C 6.4 % (4.5-5.6)
--- NOTE | 2017-11-04 10:07 | Progress Note ---
Internal Med Progress Note Date of Service: Nov 04, 2017. Provider Documentation: SUBJECTIVE: Patient is from [facility]/ does not speak Vietnamese Moaning in pain, pointing to legs Able to communicate with patient using deaf interpreter line Complaints of severe excruciating pain on both legs from knees down to feet/ with burning sensation Requesting to place wet towels on both legs Had no effect on IV morphine given few hours back Narcotics changed to IV Dilaudid Given 1 IV mg stat Then every 4 hours as needed for pain Patient reports significant improvement of bilateral lower extremity pain Spoke with patient's daughter over phone She mentions patient did not had any pain on legs prior Had neuropathic pain on his feet Severe excruciating pain on his legs is something else started from this morning OBJECTIVE: Vital Signs-as noted below Exam: General-elderly male, in distress for bilateral lower extremity pain/jaundiced Eyes-sclera deeply anicteric ENT-dry oral mucosa Neck-supple, no JVD noted, no thyromegaly , trachea midline Lungs-clear to auscultate no wheezing or rales Heart-regular S1 and S2 no murmur gallop Abdomen-soft, nontender Extremities-deeply icteric skin -chronic venous stasis change in both bilateral lower extremity Severe destruction/fungal change noted on all toenails Gangrenous/black eschar noted on tip of right great toe No palpable peripheral pulse Neuro-no focal neurological deficit noted Lab data as noted below. ASSESSMENT & PLAN: OBSTRUCTIVE JAUNDICE /PROGRESSIVE BILE DUCT DILATATION/POSSIBLE PANCREATIC MASS Presented with painless jaundice for 2 weeks, dark urine , weight loss ,diffuse abdominal pain Poor appetite Associated with increased weakness and lethargy Abnormal LFTs: T bili of 10, direct bili of 8.9, AST of 367, ALT of 174, alkaline phosphatase 1773 CT abdomen pelvis without contrast: -1. Findings consistent with developing hepatic cirrhosis. -2. Progressive biliary ductal distention compared to prior study of CT abdomen pelvis on 08/2017. A distal obstructing process is considered -3. Fullness on pancreatic head and uncinate process with potential for malignancy -4. Infiltrative change of mesentery on altered from prior study of 08/2017 -5. Nonobstructive bowel pattern Appreciate input from GI Possible concern for pancreatic mass/tumor causing common bile duct obstruction Patient is ordered n.p.o. Scheduled for EUS/ERCP today Ordered for tumor markers CA 125-reference lab, report pending Had febrile episode 37.7 and 80 No fever since then On empiric antibiotic with IV Zosyn COAGULOPATHY Resolved INR 1.1/PT 11.9 On admission, PT elevated to 16.7, PTT elevated to 42.7, INR 1.4 Possibly secondary to liver cirrhosis Patient given IV vitamin K in the ED- severe anemia hemoglobin 6.8/GI bleed- stool heme positive in ER HISTORY OF CVA Aspirin and Plavix on hold, for anemia/GI bleed EUS/ERCP-biopsy for pancreatic mass PERIPHERAL VASCULAR DISEASE -Patient was previously being followed by Dr Goldstein for his vascular disease -Status post atherectomy and balloon angioplasty left popliteal artery on 08/2014 -Patient was taking aspirin and Plavix -Which is kept on hold on admission secondary to ANEMIA, concern for GI bleed -Patient was previously on pentoxifylline, was discontinued as patient felt did not get any benefit with symptoms -Today developed severe pain bilaterally from knee down -Interventional cardiology Dr. Oniel Hanna consulted -Per daughter patient never had lower extremity pain before coming to hospital -Lower extremity venous and arterial Doppler ordered GANGRENOUS LEFT GREAT TOE Possible secondary to severe peripheral artery disease, Need to rule out arterial thrombi, as patient developed sudden excruciating lower extremity pain Lower extremity arterial and venous Doppler ordered No evidence of sepsis Continue on Zosyn Interventional cardiology consulted May need orthopedic consult for possible amputation in future ANEMIA/CONCERN FOR GI BLEED Symptom with hemoglobin of 6.4 This post 2 units of PRBC transfusion Hemoglobin improved to 9 Patient had recent EGD and colonoscopy on 08/19/2017 by for evaluation of iron deficiency anemia Colonoscopy: 08/21/2017: Preparation of colon was poor, presents numerous polyps 2-10 mm in entire colon -Polypectomy done; pathology: Tubular adenoma/hyperplastic polyp -Internal hemorrhoids EGD: Normal esophagus, normal stomach, normal examined duodenum -GI following Patient is getting EUS/ERCP today for pancreatic mass/obstructive jaundice TYPE 2 DIABETES Well-controlled at baseline Hemoglobin A1c 6.4 Hypoglycemic episodes yesterday BSG was low 60s Appreciate input from pharmacy for glycemic management Patient is n.p.o.-for GI procedure/acute pancreatitis Basal Lantus reduced to 1/2: 20 units daily (was on 45 U ) Insulin sliding scale SACRAL DECUBITUS ULCER (present on admission) Change position every shift Wound care nurse consulted CONCEPCION /CKD STAGE V Presented with clinical dehydration, creatinine was 3.37 Improved to 3.14 this morning after continued IV hydration Follow PRP Renal function improved to approximate baseline Avoid NSAIDs, contrast studies DVT PROPHYLAXIS High risk Patient is nonambulatory at baseline Pharmacological anticoagulation avoided for significant anemia, concern for GI bleed SCD and teds not ordered for peripheral vascular disease DISPOSITION To be determined Patient lives at home with daughter Mostly nonambulatory, stays in couch most part of the day PT OT evaluation will be ordered prior to discharge Medicine follow-up with Dr. Rosemary Chicas at [facility] Daughter Citlalli update over phone # [phone] Vital Signs: Date Time Temp Pulse Resp B/P (MAP) Pulse Ox O2 Delivery O2 Flow Rate FiO2 11/04/17 08:00 Room Air 11/04/17 03:56 36.9 66 18 136/55 (82) 93 Nasal Cannula 2.0 11/04/17 01:00 36.8 67 18 117/71 96 2.0 11/04/17 00:33 36.9 68 16 128/72 95 2.0 11/03/17 23:33 36.6 64 18 118/72 90 11/03/17 23:06 36.9 64 18 127/68 (87) 92 Room Air 11/03/17 23:03 36.7 67 18 122/68 93 11/03/17 22:48 36.9 68 18 122/71 11/03/17 22:48 36.9 68 16 122/71 93 11/03/17 22:27 36.9 68 18 122/71 93 11/03/17 21:27 36.8 62 16 121/70 94 11/03/17 20:27 36.4 64 18 128/57 97 11/03/17 20:12 36.8 65 18 132/72 98 11/03/17 20:06 36.8 65 18 116/68 (84) 96 11/03/17 20:00 Room Air 11/03/17 18:23 83 24 117/58 98 Room Air 11/03/17 17:09 98 Room Air 11/03/17 17:06 74 18 158/78 98 Room Air 11/03/17 15:36 69 16 136/55 98 Room Air 11/03/17 14:15 70 11/03/17 13:53 37.7 87 17 126/63 95 Room Air Lab Results: Results Past 24 Hours Test 11/03/17 14:57 11/03/17 15:00 11/03/17 15:11 11/03/17 16:10 Range/Units Bedside Hemoglobin 7.8 14.0-18.0 g/dl Bedside Hematocrit 23 42-52 % Bedside Sodium 131 135-144 mEq/L Bedside Potassium 5.8 3.3-5.0 mEq/L Bedside Chloride 98 101-112 mEq/L Bedside Total CO2 26 24-31 mEq/l Anion Gap 14.0 10.0 3-11 mmol/L Bedside Blood Urea Nitrogen 38 7-18 mg/dl Bedside Creatinine 3.5 0.6-1.3 mg/dl Bedside Glucose (other) 79 70-99 mg/dl Bedside Ionized Calcium (Benjamin) 0.84 1.12-1.32 mmol/l Urine Color DK YELLOW Urine Appearance CLEAR CLEAR Urine pH 6.5 4.5-7.5 Urine Specific [place] 1.014 1.000-1.030 Urine Protein 1+ NEG Urine Glucose (UA) NEG NEG Urine Ketones NEG NEG Urine Occult Blood NEG NEG Urine Nitrite NEG NEG Urine Bilirubin 3+ NEG Urine Urobilinogen NEG NEG Urine Leukocyte Esterase NEG NEG Urine WBC (Auto) 0 0-5 /hpf Urine RBC (Auto) 0-4 0-4 /hpf Urine Hyaline Casts (Auto) 1-5 0-5 /lpf Urine Epithelial Cells (Auto) 0-5 0-5 /lpf Urine Bacteria (Auto) NEG NEG White Blood Count 10.45 4.8-10.8 K/uL Red Blood Count 2.31 4.7-6.1 M/uL Hemoglobin 6.8 14.0-18.0 g/dL Hematocrit 21.1 42-52 % Mean Corpuscular Volume 91.3 80-100 fL Mean Corpuscular Hemoglobin 29.4 25-34 pg Mean Corpuscular Hemoglobin Concent 32.2 32-36 g/dl Platelet Count 387 130-400 K/uL Mean Platelet Volume 11.1 7.4-10.4 fL Neutrophils (%) (Auto) 76.1 % Lymphocytes (%) (Auto) 14.8 % Monocytes (%) (Auto) 8.3 % Eosinophils (%) (Auto) 0.4 % Basophils (%) (Auto) 0.1 % Neutrophils # (Auto) 7.95 1.4-6.5 K/uL Lymphocytes # (Auto) 1.55 1.2-3.4 K/uL Monocytes # (Auto) 0.87 0.11-0.59 K/uL Eosinophils # (Auto) 0.04 0-0.5 K/uL Basophils # (Auto) 0.01 0-0.2 K/uL RDW Standard Deviation 58.5 36.4-46.3 fL RDW Coefficient of Variation 17.8 11.5-14.5 % Immature Granulocyte % (Auto) 0.3 % Immature Granulocyte # (Auto) 0.03 0.00-0.02 K/uL Target Cells 2+ Rouleau 1+ Sodium Level 132 136-145 mmol/L Potassium Level 3.6 3.5-5.1 mmol/L Chloride Level 96 98-107 mmol/L Carbon Dioxide Level 25 21-32 mmol/L Blood Urea Nitrogen 29 7-18 mg/dl Creatinine 3.37 0.60-1.40 mg/dl Est Creatinine Clear Calc Drug Dose 23.0 ml/min Estimated GFR () 19.4 Estimated GFR (Non- 16.8 BUN/Creatinine Ratio 8.6 10-20 Random Glucose 79 70-99 mg/dl Calcium Level 7.8 8.5-10.1 mg/dl Total Bilirubin 10.3 0.2-1 mg/dl Direct Bilirubin 8.9 0-0.2 mg/dl Aspartate Amino Transf (AST/SGOT) 367 15-37 U/L Alanine Aminotransferase (ALT/SGPT) 174 12-78 U/L Alkaline Phosphatase 1773 45-117 U/L Total Protein 6.6 6.4-8.2 gm/dl Albumin 1.5 3.4-5.0 gm/dl Lipase 82 73-393 U/L Prothrombin Time 16.7 9.0-12.0 SECONDS Prothromb Time International Ratio 1.6 0.9-1.1 Activated Partial Thromboplast Time 42.7 21.0-31.0 SECONDS Partial Thromboplastin Ratio 1.6 Test 11/03/17 20:18 11/03/17 20:47 11/04/17 01:02 11/04/17 01:26 Range/Units Bedside Glucose 68 108 60 109 70-99 mg/dl Test 11/04/17 02:59 11/04/17 04:29 11/04/17 06:08 11/04/17 07:04 Range/Units White Blood Count 9.68 4.8-10.8 K/uL Red Blood Count 3.01 4.7-6.1 M/uL Hemoglobin 9.2 14.0-18.0 g/dL Hematocrit 26.9 42-52 % Mean Corpuscular Volume 89.4 80-100 fL Mean Corpuscular Hemoglobin 30.6 25-34 pg Mean Corpuscular Hemoglobin Concent 34.2 32-36 g/dl RDW Standard Deviation 53.6 36.4-46.3 fL RDW Coefficient of Variation 16.6 11.5-14.5 % Platelet Count 326 130-400 K/uL Mean Platelet Volume 11.0 7.4-10.4 fL Bedside Glucose 114 125 70-99 mg/dl Prothrombin Time 11.9 9.0-12.0 SECONDS Prothromb Time International Ratio 1.1 0.9-1.1 Activated Partial Thromboplast Time 35.7 21.0-31.0 SECONDS Partial Thromboplastin Ratio 1.4 Sodium Level 134 136-145 mmol/L Potassium Level 3.3 3.5-5.1 mmol/L Chloride Level 100 98-107 mmol/L Carbon Dioxide Level 24 21-32 mmol/L Anion Gap 10.0 3-11 mmol/L Blood Urea Nitrogen 27 7-18 mg/dl Creatinine 3.14 0.60-1.40 mg/dl Est Creatinine Clear Calc Drug Dose 24.3 ml/min Estimated GFR () 21.2 Estimated GFR (Non- 18.2 BUN/Creatinine Ratio 8.6 10-20 Random Glucose 111 70-99 mg/dl Calcium Level 7.6 8.5-10.1 mg/dl Total Bilirubin 9.9 0.2-1 mg/dl Aspartate Amino Transf (AST/SGOT) 377 15-37 U/L Alanine Aminotransferase (ALT/SGPT) 161 12-78 U/L Alkaline Phosphatase 1654 45-117 U/L Total Protein 6.1 6.4-8.2 gm/dl Albumin 1.4 3.4-5.0 gm/dl Globulin 4.7 2.5-4.0 gm/dl Albumin/Globulin Ratio 0.3 0.9-2 Chemistry Specimen Hemolysis Test 11/04/17 07:05 11/04/17 11:18 Range/Units Estimated Average Glucose 137 mg/dl Hemoglobin A1c 6.4 4.5-5.6 % Bedside Glucose 146 70-99 mg/dl
[2017-11-04 11:00] VITALS: BP 139/68; PULSE 78; TEMP 37; O2SAT 97
[2017-11-04] MEDS: PANTOprazole INJ 40 MG in SYRINGE 0 ML IV SCH (11:35)
[2017-11-04] MEDS: PIPERACILL/TAZOBAC IV 4.5 GM in D5W 100 ML IV SCH ×2 (11:35→18:00)
--- NOTE | 2017-11-04 11:49 | Progress Note ---
Progress Note Date of Service Nov 04, 2017. Progress Note Pt continues to c/o leg pain (hx of neuropathy). No signs of abd pain when abd palpated. VS, labs reviewed. He had been given 2U PRBC transfusion overnight and Hgb 6->9. No BMs overnight. LFTs similarly up. He is currently NPO for EUS/ ERCP in OR by Dr. Mary Kaye this afternoon. I spoke with pt's daughter, Citlalli, who is planning to be in hospital around noon so she can be around for consents. Pt speaks [place]ambian only. GI will further recs after EUS/ERCP is completed.
[2017-11-04 12:31] VITALS: Ht 175.3 cm; Wt 108.1 kg
--- NOTE | 2017-11-04 12:32 | Pharmacy Progress Note ---
Pharmacy Glycemic Short Note 2 Date of Service Nov 04, 2017. OUTPATIENT ANTIDIABETIC REGIMEN: * Lantus 45 units SQ daily * NovoLog 5 units SQ TIDM Item Value Date Time Bedside Glucose (other) 79 mg/dl 11/03/17 1457 Bedside Glucose 68 mg/dl *L 11/03/172017 Bedside Glucose 108 mg/dl H 11/03/17 2047 Bedside Glucose 60 mg/dl *L 11/04/17 0102 Bedside Glucose 109 mg/dl H 11/04/17 0126 Bedside Glucose 114 mg/dl H 11/04/17 0429 Bedside Glucose 125 mg/dl H 11/04/17 0608 Bedside Glucose 146 mg/dl H 11/04/17 1118 Estimated Average Glucose 137 mg/dl 11/04/17 0705 Hemoglobin A1c 6.4 % H 11/04/17 0705 ASSESSMENT: * 77yo T2DM male with difficult to assess outpatient control per recent A1c- pt may be experiencing frequent hypoglycemia as an outpatient as his A1c dropped from 11.6% on 08/14/17 to 6.4% on 11/04/17. HOWEVER, pt with GI bleed and recent blood transfusion therefore this A1c may not be reliable. * Pt with hypoglycemia on admission secondary to poor PO intake. Per nursing/ daughter, patient did take his Lantus 45 units yesterday [employer]. * Pt with multiple lows overnight - resolved with dextrose and IVF * Pt NPO today - will adjust basal insulin to prevent hypoglycemia * Will continue weight based NovoLog scale instead of fixed dosing NovoLog per outpatient regimen PLAN FOR INPATIENT GLYCEMIC CONTROL: * Basal insulin * 1/2 dose this morning for NPO - Lantus 20 units SQ AM 11/04/17 * Since outpaient dosing of Lantus caused low with poor PO intake, will order a scale for Lantus to start once diet advanced. Titrate based on BSG trends * BSG below 140 mg/dl or NPO --> Lantus 20 units * BSG 140-180 mg/dl --> Lantus 30 units * BSG above 180mg/dl --> Lantus 40 units * Bolus insulin * NovoLog per scale ACHS or Q6hrs while NPO * Goal Range: Low 110 mg/dL - High 140 mg/dL * Correction Factor: 20 mg/dL/unit * Nutritional / Prandial insulin per carb ratio of 1 unit per 7 grams CHO consumed Looking ahead to discharge: * Pt may be experiencing frequent hypoglycemia as an outpatient based on significant A1c decrease from August 2017. HOWEVER, pt with GI bleed and recent blood transfusion therefore this A1c may not be reliable. * Recommend evaluating outpatient BSG records, but most likely Lantus will need decreased at discharge. Dosing TBD based on inpatient trends.
[2017-11-04] MEDS ORDERED: FENTANYL CITRATE INJ 50 MCG/1 ML 2 ML VIAL ONE (12:56)
--- NOTE | 2017-11-04 12:59 | Endo History and Physical ---
History & Physical Date of Service: Nov 04, 2017. Chief Complaint: Jaundice Referring Physician: Dr. Dawson History of Present Illness Patient presented with several weeks of alteration of urination color found to have dilation of the biliary tree on CT with fullness in the pancreatic head. EUS / ERCP requested for further evaluation. Past Medical History Diabetes, Hypertension, CVA/TIA Past Surgical History Hx Cardiac Surgery: No Hx Internal Defibrillator: No Hx Pacemaker: No Hx Abdominal Surgery: Yes (Cholecystectomy) Hx Post-Op Nausea and Vomiting: No Hx Cancer Surgery: No Hx Thoracic Surgery: No Hx Orthopedic: No Hx Urinary Tract Surgery: No Social History Smoking Status: Current Every Day Smoker Hx Substance Use: No Hx Alcohol Use: No Allergies Coded Allergies: LORETTA Inhibitors (Verified Adverse Reaction, Intermediate, ADVANCED CKD, ) Angiotensin Receptor Blockers (Verified Adverse Reaction, Intermediate, ADVANCED CKD, 11/03/17) Current Medications Reported Home Medications Medications Dose Route/Sig Max Daily Dose Days Date Category Vitamin D3 Ultra Strength (Cholecalciferol) 5,000 Unit Cap 1 Cap PO EVERY OTHER DAY 11/03/17 Reported Plavix (Clopidogrel Bisulfate) 75 Mg Tab 75 Mg PO DAILY 30 08/21/17 Rx Novolog Flexpen (Insulin Aspart) 100 Units/Ml Inj 5 Units SQ TIDM 30 08/21/17 Rx Lantus Solostar (Insulin Glargine) 100 Unit/Ml Inj 45 Units SC DAILY 30 08/21/17 Rx Neurontin (Gabapentin) 100 Mg Cap 100 Mg PO TID 30 08/21/17 Rx Toprol-Xl (Metoprolol Succinate) 25 Mg Tabcr 25 Mg PO HS 08/14/17 Reported Lasix (Furosemide) 40 Mg Tab 80 Mg PO DAILY 11/15/14 Reported Aspirin Ec (Aspirin) 81 Mg Tab 81 Mg PO DAILY 02/24/14 Reported Cardura (Doxazosin Mesylate) 2 Mg Tab 2 Mg PO DAILY 02/24/14 Reported Vital Signs Weight (Kilograms): 108.100 Height (Feet): 5 Height (Inches): 9.00 Date Time Temp Pulse Resp B/P (MAP) Pulse Ox O2 Delivery O2 Flow Rate FiO2 11/04/17 11:00 37.0 78 18 139/68 (91) 97 11/04/17 08:00 Room Air 11/04/17 03:56 36.9 66 18 136/55 (82) 93 Nasal Cannula 2.0 11/04/17 01:00 36.8 67 18 117/71 96 2.0 18 00:33 36.9 68 16 128/72 95 2.0 11/03/17 23:33 36.6 64 18 118/72 90 18 23:06 36.9 64 18 127/68 (87) 92 Room Air 11/03/17 23:03 36.7 67 18 122/68 93 11/03/17 22:48 36.9 68 18 122/71 11/03/17 22:48 36.9 68 16 122/71 93 18 22:27 36.9 68 18 122/71 93 11/03/17 21:27 36.8 62 16 121/70 94 11/03/17 20:27 36.4 64 18 128/57 97 11/03/17 20:12 36.8 65 18 132/72 98 11/03/17 20:06 36.8 65 18 116/68 (84) 96 11/03/17 20:00 Room Air 11/03/17 18:23 83 24 117/58 98 Room Air 11/03/17 17:09 98 Room Air 11/03/17 17:06 74 18 158/78 98 Room Air 11/03/17 15:36 69 16 136/55 98 Room Air 11/03/17 14:15 70 11/03/17 13:53 37.7 87 17 126/63 95 Room Air Physical Exam General Appearance: + mild distress Respiratory/Chest: Auscultation: deminished air movement Cardiovascular: Heart Auscultation: II/ NOE Abdomen: Inspection & Palpation: soft, RUQ tenderness Assessment and Plan Patient presented with new onset jaundice, imaging is limited by the renal failure and inability to use IV contrast. We are planning for EUS / ERCP this afternoon for further evaluation. If a mass is found within the pancreas we will likely place a metal stent for symptomatic treatment. We have discussed the risks to include bleeding, infection, perforation, pain, failed cannulation , pancretitis and the need for follow-up procedures.
[2017-11-04] MEDS ORDERED: INDOMETHACIN 50 MG SUPP ONE (13:14)
[2017-11-04] MEDS ORDERED: PROPOFOL IV EMULSION 10 MG/ML 20 ML VIAL ONE (13:44)
[2017-11-04] MEDS ORDERED: ROCURONIUM BROMIDE 10 MG/ML 5 ML VIAL ONE (13:44)
[2017-11-04] MEDS ORDERED: LIDOCAINE HCL 2% 2 ML VIAL (20MG/ML) ONE (13:44)
[2017-11-04] MEDS ORDERED: FENTANYL CITRATE INJ 50 MCG/1 ML 2 ML VIAL IV PRN (13:45)
[2017-11-04] MEDS ORDERED: EpHEDrine SULFATE INJ 50 MG/ML AMP IV PRN (13:45)
[2017-11-04] MEDS ORDERED: PHENYLEPHRINE 100MCG/ML 5ML SYR IV PRN (13:45)
[2017-11-04] MEDS ORDERED: ATROPINE SULFATE 0.1 MG/ML 5ML SYR IV PRN (13:45)
[2017-11-04] MEDS ORDERED: EpHEDrine SULFATE 50MG/5ML SYR ONE (13:50)
[2017-11-04] MEDS ORDERED: PHENYLEPHRINE HCL INJ 10 MG/ML VIAL ONE (14:48)
[2017-11-04] MEDS ORDERED: GLYCOPYRROLATE INJ 0.2 MG/ML VIAL ONE (14:51)
[2017-11-04] MEDS ORDERED: NEOSTIGMINE METHYLSULFATE 5 MG/5 ML SYR ONE (14:51)
[2017-11-04] MEDS ORDERED: ONDANSETRON INJ 2 MG/ML 2 ML VIAL ONE (15:13)
--- NOTE | 2017-11-04 15:27 | [facility] Post Operative Brief Note ---
Immediate Operative Summary Operative Date Nov 04, 2017. Pre-Operative Diagnosis Jaundice, Biliary Tract Distention Post-Operative Diagnosis Jaundice, Biliary Tract Distention Procedure(s) Performed Upper Endoscopic Ultrasonography, Fine needle aspiration, Attempted Endoscopic Retrograde Cholangiopancreatogram with failed cannulation Surgeon Dr. Kaye Tile Layer Supervisor Surgeon(s) none Estimated Blood Loss 0cc Findings Consistent with Post-Op Diagnosis 35 mm pancreatic head madd, multiple Lymph nodes, ascites, dilated CBD Specimens see Endo nurse notes Drains None Anesthesia Type General Complication(s) none Disposition Accompanied Pt To Recover: no Disposition: Recovery Room / PACU
--- NOTE | 2017-11-04 15:37 | DIAGNOSTIC IMAGING REPORT ---
ERCP BILIARY DUCTAL CLINICAL HISTORY: Biliary ductal dilatation COMPARISON STUDY: CT scan dated 11/03/2017 FLUOROSCOPY TIME: 110 seconds. NUMBER OF FLUOROSCOPIC IMAGES: 1 FINDINGS: The single image demonstrates an endoscope and guidewire. There are surgical clips the level of the gallbladder fossa. No ductal contrast is visualized. The ERCP was reportedly unsuccessful. IMPRESSION: Unsuccessful ERCP. There are no images demonstrating contrast within the ducts Electronically signed by: Luis Muhammad M.D. 11/04/2017 3:36 PM Dictated Date/Time: 11/04/2017 3:34 PM
--- NOTE | 2017-11-04 15:47 | Progress Note ---
Progress Note Date of Service Nov 04, 2017. Progress Note We performed and EUS with FNA this afternoon. The patient was found to have a 35 mm pancreatic head mass with obstruction of the CBD. There were [address] regions [address] appearing LN to include the Celiac and Portahepatis. An ERCP was attempted, however, we could not cannulate the CBD due to the obstructive mass. Recomendations: Continue broad spectrum abx referral to a tertiary center (may need EUS guided access or IR) patient will ultimately need medical oncology input as he is an unlikely surgical candidate
--- NOTE | 2017-11-04 16:03 | Anesthesiology Progress Note ---
Anesthesia Post Op Note Date & Time Nov 04, 2017 at 16:03 Vital Signs Pain Intensity: 8.0 Vital Signs Past 12 Hours Date Time Temp Pulse Resp B/P (MAP) Pulse Ox O2 Delivery O2 Flow Rate FiO2 11/04/17 15:50 79 22 142/69 95 Nasal Cannula 2 11/04/17 15:40 80 23 137/66 99 Nasal Cannula 2 11/04/17 15:32 35.6 85 20 119/74 99 Oxymask 10 11/04/17 12:00 Room Air 11/04/17 11:00 37.0 78 18 139/68 (91) 97 11/04/17 08:00 Room Air Notes Mental Status: alert / awake / arousable, participated in evaluation Pt Amnestic to Procedure: Yes Nausea / Vomiting: adequately controlled Pain: adequately controlled Airway Patency, RR, SpO2: stable & adequate BP & HR: stable & adequate Hydration State: stable & adequate Anesthetic Complications: no major complications apparent
--- NOTE | 2017-11-04 16:06 | Progress Note ---
Progress Note Date of Service Nov 04, 2017. Progress Note ATTENDING ADDENDUM Patient underwent endoscopic ultrasound with FNA for obstructive jaundice/ pancreatic mass As per GI: Patient found to have 35 mm pancreatic head mass with obstruction of the CBD. -Possible malignant lymphadenopathy and on celiac and anand hepatis area FNA of lymph nodes obtained -ERCP was attempted, GI could not cannulate the CBD due to obstructive mass. Patient will continue with broad-spectrum IV antibiotics with Zosyn Pt will need to be transferred to tertiary care center [facility]-for possible EUS guided stent versus interventional radiology Procedure Overall prognosis remains very poor Possible metastatic pancreatic CVA, and is unlikely to be a surgical candidate Depending on the pathology will need oncology evaluation at [facility]
[2017-11-04] MEDS ORDERED: protonix IV (16:20)
[2017-11-04] MEDS ORDERED: PIPE1INJ11 IV (16:20)
--- NOTE | 2017-11-04 16:22 | Discharge Instructions ---
Discharge Instructions Date of Service Nov 04, 2017. Admission Reason for Admission: Biliary Tract Distention, Gi Bleed, Jaundice Discharge Discharge Diagnosis / Problem: OBSTRUCTIVE JAUNDICE /PANCREATIC MASS / METASTATIC LYMPHADENOPATHY Discharge Goals Goal(s): Decrease discomfort, Improve function, Increase independence, Improve disease control, Diagnostic testing, Therapeutic intervention Activity Recommendations Activity Limitations: as noted below ( TOLERATED ) . Instructions / Follow-Up Instructions / Follow-Up TRANSFER TO [facility] FOR FURTHER CARE ACCEPTING PHYSICIAN DR SAMUEL DENNIS -HOSPITALIST AT [facility] Current Hospital Diet Patient's current hospital diet: Clear Liquid Diet Discharge Diet Recommended Diet: Clear Liquid Diet Procedures Procedures Performed: Upper Endoscopic Ultrasonography, Fine needle aspiration, Attempted Endoscopic Retrograde Cholangiopancreatogram with failed cannulation Pending Studies Studies pending at discharge: no Laboratory Results Hemoglobin A1c Test 11/04/17 07:05 Range/Units Estimated Average Glucose 137 mg/dl Hemoglobin A1c 6.4 H 4.5-5.6 % Medical Emergencies . Who to Call and When: Medical Emergencies: If at any time you feel your situation is an emergency, please call 911 immediately. . Non-Emergent Contact Non-Emergency issues call your: Primary Care Provider . . "Provider Documentation" section prepared by Serene Devine. .
--- NOTE | 2017-11-04 16:41 | Discharge Summary ---
Discharge Summary Date of Service Nov 04, 2017. Discharge Summary Admission Date: Nov 03, 2017 at 17:35 Discharge Date: Nov 04, 2017 Discharge Disposition: Acute care facility ([facility]) Principal Diagnosis: OBSTRUCTIVE JAUNDICE, PANCREATIC MASS, METASTATIC LYMPHADENOPATHY Procedures: Procedures Performed: Upper Endoscopic Ultrasonography, Fine needle aspiration, Attempted Endoscopic Retrograde Cholangiopancreatogram with failed cannulation CT ABDOMEN PELVIS WITHOUT CONTRAST ABD/PELVIS NO IV OR ORAL CONT CT DOSE: 1057.16 mGy.cm HISTORY: Pain abd pain TECHNIQUE: Multiaxial CT images of the abdomen and pelvis were performed without contrast. A dose lowering technique was utilized adhering to the principles of ALARA. COMPARISON STUDY: 08/15/2017 FINDINGS: Lung bases are grossly clear. Findings suggesting a component of hepatic cirrhosis. Biliary ductal distention of uncertain etiology although this represents an interval finding. Cholecystectomy. Moderate fatty replacement of the pancreas with findings of superimposed moderate pancreatitis. Mesenteric infiltrative change unaltered from the prior study. Bowel pattern is considered nonobstructive. Trace amount of air within the bladder presumably secondary to a recent catheterization procedure. Several para-aortic and mesenteric nodes unchanged in the prior study. No evidence for ascites. IMPRESSION: 1. Findings consistent with developing hepatic cirrhosis. 2. Progressive biliary ductal distention compared to the prior study. A distal obstructing process is considered. 3. Pancreatitis. 4. Infiltrative change of the mesentery unaltered from the prior study. 5. Nonobstructive bowel pattern. Consultations: [facility]-Dr. Mary Kaye/Dr. Dawson Medication Reconciliation New Medications: Piperacillin Sodium-Tazobactam (Zosyn) 1 Inj Inj 4.5 MG IV Q8 for 14 Days [protonix] () 40 MG IV DAILY for 30 Days Discontinued Medications: Aspirin (Aspirin Ec) 81 Mg Tab 81 MG PO DAILY Cholecalciferol (Vitamin D3 Ultra Strength) 5,000 Unit Cap 1 CAP PO every other day Clopidogrel (Plavix) 75 Mg Tab 75 MG PO DAILY for 30 Days, #30 TAB Doxazosin Mesylate (Cardura) 2 Mg Tab 2 MG PO DAILY Furosemide (Lasix) 40 Mg Tab 80 MG PO DAILY, TAB Gabapentin (Neurontin) 100 Mg Cap 100 MG PO TID for 30 Days, #90 CAP Insulin Aspart (Novolog Flexpen) 100 Units/Ml Inj 5 UNITS SQ TIDM for 30 Days, #1 PEN Insulin Glargine (Lantus Solostar) 100 Unit/Ml Inj 45 UNITS SC DAILY for 30 Days, #5 PEN Metoprolol Succ (Toprol Xl) (Toprol-Xl) 25 Mg Tabcr 25 MG PO HS, #30 TAB Admission Information HPI (per Admitting provider): This is a 77-year-old male with a PMH of DM II, PAD, HTN, anemia of chronic disease, CKD V, history of CVA and recent lower GI bleed who presents from home with urinary symptoms. Per daughter, Citlalli, patient began to have dark in the urine and decreased output earlier this week. Over the last few days, patient has become lethargic and has complained of near syncope as well as nausea. Also notes jaundice beginning 2 weeks ago that was painless until a few days ago , when he started to have dull mid-epigastric pain. Denies any diarrhea or constipation. Due to patient's incontinence, it is been difficult for her daughter to evaluate the color of stool but states that has been reddish brown for the past few days. No bright red blood per rectum, no melena. Was admitted in August for weakness and anemia and had an EGD/colonoscopy performed. EGD was normal and colonoscopy showed hyperplastic and tubular adenoma polyps that were resected. Has a history of CKD V for which he follows with nephrology. Baseline creatinine is in the mid 3s. Other GI history includes a bile leak in 2014 s/p cholecystectomy and biliary stenting by ERCP. Due to history of CVA, Plavix was initiated during a few months ago. Patient has only had one dose of Plavix in the past 2 weeks. Smokes 4 cigarettes daily, which is a significant decrease from previously. In the ED, patient was found to be severely anemic with hemoglobin of 6.8. Creatinine is at baseline at 3.37. Liver profile with the following abnormalities: T bili of 10, D bili of 8.9, AST of 367, ALT of 174. Physical Exam (per Admitting): General Appearance: + mild distress Head: normocephalic, atraumatic Eyes: PERRL, sclerae normal (Scleral icterus) ENT: normal ENT inspection, hearing grossly normal, pharynx normal (Dry mucous membranes) Neck: supple, thyroid normal, trachea midline Respiratory/Chest: chest non-tender, lungs clear, normal breath sounds, no respiratory distress, no accessory muscle use Cardiovascular: regular rate, rhythm, normal peripheral pulses Abdomen/GI: soft, no organomegaly, + tenderness (Mid-epigastrium TTP. No guarding.) Extremities/Musculoskelatal: normal inspection, no calf tenderness, + swelling (Trace bilateral lower extremity edema) Neurologic/Psych: no motor/sensory deficits, alert, normal mood/affect, oriented x 3 Skin: warm/dry, no rash, + jaundice, + pertinent finding (Sacral ulcer, multiple ulcers with eschar on anterior pugh, bilateral feet/toes ) Hospital Course OBSTRUCTIVE JAUNDICE /PROGRESSIVE BILE DUCT DILATATION/POSSIBLE PANCREATIC MASS Presented with painless jaundice for 2 weeks, dark urine , weight loss ,diffuse abdominal pain Poor appetite Associated with increased weakness and lethargy Abnormal LFTs: T bili of 10, direct bili of 8.9, AST of 367, ALT of 174, alkaline phosphatase 1773 CT abdomen pelvis without contrast: -1. Findings consistent with developing hepatic cirrhosis. -2. Progressive biliary ductal distention compared to prior study of CT abdomen pelvis on 08/2017. A distal obstructing process is considered -3. Fullness on pancreatic head and uncinate process with potential for malignancy -4. Infiltrative change of mesentery on altered from prior study of 08/2017 -5. Nonobstructive bowel pattern Appreciate input from GI Possible concern for pancreatic mass/tumor causing common bile duct obstruction Patient is ordered n.p.o. s/p EUS/ERCP today Patient underwent endoscopic ultrasound with FNA for obstructive jaundice/ pancreatic mass As per GI: Patient found to have 35 mm pancreatic head mass with obstruction of the CBD. -Possible malignant lymphadenopathy and on celiac and anand hepatis area FNA of lymph nodes obtained -ERCP was attempted, GI could not cannulate the CBD due to obstructive mass. Patient will continue with broad-spectrum IV antibiotics with Zosyn will need to be transferred to tertiary care center [facility]-for possible EUS guided stent versus interventional radiology Procedure Overall prognosis remains very poor Possible metastatic pancreatic CVA, and is unlikely to be a surgical candidate Depending on the pathology will need oncology evaluation at [facility] ordered tumor markers CA 125-reference lab, report pending Had febrile episode 37.7 and 80 No fever since then On empiric antibiotic with IV Zosyn transfer to [facility] via ground ACLS today COAGULOPATHY Resolved INR 1.1/PT 11.9 On admission, PT elevated to 16.7, PTT elevated to 42.7, INR 1.4 Possibly secondary to liver cirrhosis Patient given IV vitamin K in the ED- severe anemia hemoglobin 6.8/GI bleed- stool heme positive in ER HISTORY OF CVA Aspirin and Plavix on hold, for anemia/GI bleed EUS/ERCP-biopsy for pancreatic mass PERIPHERAL VASCULAR DISEASE -Patient was previously being followed by Dr Goldstein for his vascular disease -Status post atherectomy and balloon angioplasty left popliteal artery on 08/2014 -Patient was taking aspirin and Plavix -Which is kept on hold on admission secondary to ANEMIA, concern for GI bleed -Patient was previously on pentoxifylline, was discontinued as patient felt did not get any benefit with symptoms -Today developed severe pain bilaterally from knee down -Interventional cardiology Dr. Oniel Hanna consulted -Per daughter patient never had lower extremity pain before coming to hospital -Lower extremity venous and arterial Doppler ordered GANGRENOUS LEFT GREAT TOE Possible secondary to severe peripheral artery disease, Need to rule out arterial thrombi, as patient developed sudden excruciating lower extremity pain Lower extremity arterial and venous Doppler ordered No evidence of sepsis Continue on Zosyn Interventional cardiology consulted May need orthopedic consult for possible amputation in future ANEMIA/CONCERN FOR GI BLEED Symptom with hemoglobin of 6.4 This post 2 units of PRBC transfusion Hemoglobin improved to 9 Patient had recent EGD and colonoscopy on 08/19/2017 by for evaluation of iron deficiency anemia Colonoscopy: 08/21/2017: Preparation of colon was poor, presents numerous polyps 2-10 mm in entire colon -Polypectomy done; pathology: Tubular adenoma/hyperplastic polyp -Internal hemorrhoids EGD: Normal esophagus, normal stomach, normal examined duodenum -GI following Patient is getting EUS/ERCP today for pancreatic mass/obstructive jaundice TYPE 2 DIABETES Well-controlled at baseline Hemoglobin A1c 6.4 Hypoglycemic episodes yesterday BSG was low 60s Appreciate input from pharmacy for glycemic management Patient is n.p.o.-for GI procedure/acute pancreatitis Basal Lantus reduced to 1/2: 20 units daily (was on 45 U ) Insulin sliding scale SACRAL DECUBITUS ULCER (present on admission) Change position every shift Wound care nurse consulted CONCEPCION /CKD STAGE V Presented with clinical dehydration, creatinine was 3.37 Improved to 3.14 this morning after continued IV hydration Follow PRP Renal function improved to approximate baseline Avoid NSAIDs, contrast studies DVT PROPHYLAXIS High risk Patient is nonambulatory at baseline Pharmacological anticoagulation avoided for significant anemia, concern for GI bleed SCD and teds not ordered for peripheral vascular disease DISPOSITION Transfer patient to [facility] for further care Accepting physician is Dr.Yovone Dennis Hospitalist at [facility] [place] update over phone # [phone] Total time spent on discharge = 40 mins This includes examination of the patient, discharge planning, medication reconciliation, and communication with other providers. Discharge Instructions Discharge Instructions Date of Service Nov 04, 2017. Admission Reason for Admission: Biliary Tract Distention, Gi Bleed, Jaundice Discharge Discharge Diagnosis / Problem: OBSTRUCTIVE JAUNDICE /PANCREATIC MASS / METASTATIC LYMPHADENOPATHY Discharge Goals Goal(s): Decrease discomfort, Improve function, Increase independence, Improve disease control, Diagnostic testing, Therapeutic intervention Activity Recommendations Activity Limitations: as noted below ( TOLERATED ) . Instructions / Follow-Up Instructions / Follow-Up TRANSFER TO [facility] FOR FURTHER CARE ACCEPTING PHYSICIAN DR SAMUEL DENNIS -HOSPITALIST AT [facility] Current Hospital Diet Patient's current hospital diet: Clear Liquid Diet Discharge Diet Recommended Diet: Clear Liquid Diet Procedures Procedures Performed: Upper Endoscopic Ultrasonography, Fine needle aspiration, Attempted Endoscopic Retrograde Cholangiopancreatogram with failed cannulation Pending Studies Studies pending at discharge: no Laboratory Results Hemoglobin A1c Test 11/04/17 07:05 Range/Units Estimated Average Glucose 137 mg/dl Hemoglobin A1c 6.4 H 4.5-5.6 % Medical Emergencies . Who to Call and When: Medical Emergencies: If at any time you feel your situation is an emergency, please call 911 immediately. . Non-Emergent Contact Non-Emergency issues call your: Primary Care Provider . . "Provider Documentation" section prepared by Serene Devine. .
[2017-11-04 19:02] VITALS: BP 120/65; PULSE 73; TEMP 36.1; O2SAT 91
[2017-11-05] MEDS ORDERED: INSULIN GLARGINE SOLOSTAR 100 UNITS/ML 3 ML PEN SC SCH (09:00)
--- NOTE | 2017-11-05 10:41 | GI REPORT ---
Patient Name: Gt Quesada Procedure Date: 11/04/2017 1:14 PM Date of : 1940 Admit Type: Inpatient Age: 77 Gender: Male Attending MD: Mary Kaye DO Procedure: Upper EUS Providers: Mary Kaye DO Referring MD: Serene Devine, Jagdeep Dawson MD Indications: Suspected mass in pancreas on CT scan Medicines: General Anesthesia Complications: No immediate complications. Estimated blood loss: Minimal. Estimated Blood Loss: Estimated blood loss was minimal. Procedure: Pre-Anesthesia Assessment: - Prior to the procedure, a History and Physical was performed, and patient medications, allergies and sensitivities were reviewed. The patient's tolerance of previous anesthesia was reviewed. - The risks and benefits of the procedure and the sedation options and risks were discussed with the patient. All questions were answered and informed consent was obtained from the patient's daughter. - Patient identification and proposed procedure were verified prior to the procedure by the physician, the nurse and the sales coordinator. The procedure was verified in the procedure room. - Pre-procedure physical examination revealed no contraindications to sedation. - ASA Grade Assessment: III - A patient with severe systemic disease. - After reviewing the risks and benefits, the patient was deemed in satisfactory condition to undergo the procedure. - The anesthesia plan was to use general anesthesia. - Immediately prior to administration of medications, the patient was re-assessed for adequacy to receive sedatives. - The heart rate, respiratory rate, oxygen saturations, blood pressure, adequacy of pulmonary ventilation, and response to care were monitored throughout the procedure. - The physical status of the patient was re-assessed after the procedure. After obtaining informed consent, the endoscope was passed under direct vision. Throughout the procedure, the patient's blood pressure, pulse, and oxygen saturations were monitored continuously. The Endosonoscope was introduced through the mouth, and advanced to the second part of duodenum. The upper EUS was accomplished without difficulty. The patient tolerated the procedure well. The Endosonoscope was introduced through the mouth, and advanced to the second part of duodenum. Findings: Endosonographic Finding : There was no sign of significant endosonographic abnormality in the ampulla. No masses were identified. Evidence of a previous cholecystectomy was identified endosonographically. There was dilation in the common bile duct which measured up to 20 mm. The pancreatic duct had a dilated endosonographic appearance in the body of the pancreas and in the tail of the pancreas. The pancreatic duct measured up to 5 mm in diameter. An irregular mass was identified in the pancreatic head. The mass was hypoechoic. The mass measured 35 mm by 25 mm in maximal cross-sectional diameter. The endosonographic borders were poorly-defined. There was sonographic evidence suggesting invasion into the portal vein (manifested by abutment). An intact interface was seen between the mass and the celiac trunk suggesting a lack of invasion. The remainder of the pancreas was examined. The endosonographic appearance of parenchyma and the upstream pancreatic duct indicated duct dilation, a maximum duct diameter of 5 mm and parenchymal atrophy. Fine needle aspiration was performed. Color Doppler imaging was utilized prior to needle puncture to confirm a lack of significant vascular structures within the needle path. Five passes were made with the 22 gauge needle using a transduodenal approach ([employer]). A stylet was used. A bank vault custodian was present and performed a preliminary cytologic examination. Final cytology results are pending. Estimated blood loss was minimal. A few enlarged lymph nodes were visualized in the celiac region (level 20). The largest measured 12 mm by 10 mm in maximal cross-sectional diameter. The nodes were oval, hypoechoic and had well defined margins. Fine needle aspiration was performed. Color Doppler imaging was utilized prior to needle puncture to confirm a lack of significant vascular structures within the needle path. Three passes were made with the 22 gauge needle using a transgastric approach. A stylet was used. A bank vault custodian was present and performed a preliminary cytologic examination. Final cytology results are pending. Estimated blood loss was minimal. A few enlarged lymph nodes were visualized in the anand hepatis region. The largest measured 7 mm by 6 mm in maximal cross-sectional diameter. The nodes were rounded, hypoechoic and had well defined margins. There was no sign of significant endosonographic abnormality in the left adrenal gland. No adrenal gland enlargement was identified. A moderate amount of fluid, visualized as a hypoechoic structure, was found in the perihepatic peritoneal space. Intrahepatid ductal dilation was seen, no obvious liver mass was noted. Impression: - There was no sign of significant pathology in the ampulla. - Evidence of a cholecystectomy. - There was dilation in the common bile duct which measured up to 20 mm. - The pancreatic duct had a dilated endosonographic appearance in the body of the pancreas and in the tail of the pancreas. The pancreatic duct measured up to 5 mm in diameter. - A 35 mm mass was identified in the pancreatic head. This was staged T3 N1 Mx by endosonographic criteria. The staging applies if malignancy is confirmed. Fine needle aspiration performed. - A few enlarged lymph nodes were visualized in the celiac region (level 20). Fine needle aspiration performed. - A few enlarged lymph nodes were visualized in the anand hepatis region. Recommendation: - Perform an ERCP today. - Await cytology results. Mary Kaye D.O. Mary Kaye DO 11/04/2017 3:53:04 PM This report has been signed electronically. Note Initiated On: 11/04/2017 1:14 PM Number of Addenda: 0 I attest to the content of the Intraoperative Record and orders documented therein, exceptions below {[id number]}
--- NOTE | 2017-11-05 10:41 | GI REPORT ---
Patient Name: Gt Quesada Procedure Date: 11/04/2017 1:16 PM Date of : 1940 Admit Type: Inpatient Age: 77 Gender: Male Attending MD: Mary Kaye DO Procedure: ERCP Providers: Mary Kaye DO (Felipe Dawson) Referring MD: Jagdeep Mayers MD Indications: Jaundice Medicines: General Anesthesia Complications: No immediate complications. Estimated blood loss: Minimal. Estimated Blood Loss: Estimated blood loss was minimal. Procedure: Pre-Anesthesia Assessment: - Prior to the procedure, a History and Physical was performed, and patient medications, allergies and sensitivities were reviewed. The patient's tolerance of previous anesthesia was reviewed. - The risks and benefits of the procedure and the sedation options and risks were discussed with the patient. All questions were answered and informed consent was obtained. - Patient identification and proposed procedure were verified prior to the procedure by the physician, the nurse and the corporate travel agent. The procedure was verified in the procedure room. - Pre-procedure physical examination revealed no contraindications to sedation. - ASA Grade Assessment: III - A patient with severe systemic disease. - After reviewing the risks and benefits, the patient was deemed in satisfactory condition to undergo the procedure. - The anesthesia plan was to use general anesthesia. - Immediately prior to administration of medications, the patient was re-assessed for adequacy to receive sedatives. - The heart rate, respiratory rate, oxygen saturations, blood pressure, adequacy of pulmonary ventilation, and response to care were monitored throughout the procedure. - The physical status of the patient was re-assessed after the procedure. After obtaining informed consent, the scope was passed under direct vision. Throughout the procedure, the patient's blood pressure, pulse, and oxygen saturations were monitored continuously. The Scope was introduced through the mouth, and advanced to the duodenum and used to inject contrast into the bile duct. The patient tolerated the procedure well. The ERCP was unusually difficult due to challenging cannulation because of abnormal anatomy. Successful completion of the procedure was aided by changing the staff who performed the procedure. Findings: A corporate administrative assistant film of the abdomen was obtained. Surgical clips, consistent with previous cholecystectomy, were seen in the area of the right upper quadrant of the abdomen. Surgical clips, consistent with previous cholecystectomy, were seen in the area of the. The esophagus was successfully intubated under direct vision without detailed examination of the pharynx, larynx, and associated structures, and upper GI tract. The upper GI tract was grossly normal. A biliary sphincterotomy had been performed. The sphincterotomy appeared not overtly patent and was difficult to localize. The region of the ampulla was nodular with evidenece of retraction. The bile duct could not be cannulated with the short-nosed traction sphincterotome and guidewire, numerous attempts made with several wire and cannula combinations (change of provider to Dr. Dawson) without success. Impression: - Prior biliary endoscopic sphincterotomy appeared not overtly patent. Recommendation: - [facility] - [facility] guided cannulation. Mary Kaye D.O. Mary Kaye, 11/04/2017 3:17:54 PM This report has been signed electronically. Note Initiated On: 11/04/2017 1:16 PM Number of Addenda: 0 I attest to the content of the Intraoperative Record and orders documented therein, exceptions below {[id number]}
[2017-11-05] MEDS ORDERED: MRLP17X PO (13:28)
[2017-11-05] MEDS ORDERED: RXNS10 PO (13:28)
[2017-11-05] MEDS ORDERED: ATROPS5 SL (13:28)
[2017-11-05] MEDS ORDERED: ATV5 SL (13:28)
[2017-11-05] MEDS ORDERED: PROM12.529 PO (13:48)
[2017-11-05] MEDS ORDERED: SCOP1.5D2 TD (13:48)
[2017-11-05] MEDS ORDERED: PROM25SU28 PR (13:48)
[2017-11-05] MEDS ORDERED: ONDA8TAB62 SL (13:48)
[2017-11-05] MEDS ORDERED: HYDR2TAB48 PO (14:54)
== END 2017-11-04 19:00 | disposition short-term general hospital (02) | DRG 987 ==
LOC: EDBD 13:53 → C.EDC 13:54 → C.2T 17:35 → ENRESERV 18:03
PROVIDERS: ADMIT Internal Medicine; ATTEND Hospitalist
PROC: 0FBG4ZX Excision of Pancreas, Percutaneous Endoscopic Approach, Diagnostic (ICD-10-PCS; principal; 2017-11-04 13:00)
PROC: 07B74ZX Excision of Thorax Lymphatic, Percutaneous Endoscopic Approach, Diagnostic (ICD-10-PCS; principal; 2017-11-04 13:00)
DX: K86.89 Other specified diseases of pancreas (principal); K83.1 Obstruction of bile duct; D68.4 Acquired coagulation factor deficiency; D62 Acute posthemorrhagic anemia; E11.52 Type 2 diabetes mellitus with diabetic peripheral angiopathy with gangrene; N17.9 Acute kidney failure, unspecified; I12.0 Hypertensive chronic kidney disease with stage 5 chronic kidney disease or end stage renal disease; E11.22 Type 2 diabetes mellitus with diabetic chronic kidney disease; N18.5 Chronic kidney disease, stage 5; R59.0 Localized enlarged lymph nodes; L89.159 Pressure ulcer of sacral region, unspecified stage; D63.8 Anemia in other chronic diseases classified elsewhere; Z79.02 Long term (current) use of antithrombotics/antiplatelets; Z79.4 Long term (current) use of insulin; Z79.82 Long term (current) use of aspirin; Z79.899 Other long term (current) drug therapy

== ENCOUNTER 2017-11-04 20:56 | Inpatient (IN) | payer OTHER ==
[~2017-11-04] VITALS: Ht 177.8 cm; Wt 108.8 kg
[2017-11-04 20:30] VITALS: O2SAT 97; BMI 34.3
[~2017-11-04 20:56] MED LIST changes: -AMLO10TA3 PO; -CHOL20009 PO; +CHOL500015 PO; -CPR500 PO; -HYDR-3983 PO; -PANT40TA PO; +PIPE1INJ11 IV; -POLY335019 PO; -SENN8.6T7 PO; -THIA50TA3 PO; -VLTG EXT; +protonix IV
[2017-11-04] MEDS ORDERED: POLYETHYLENE (MIRALAX) 17 GM PACK PO PRN (21:30)
[2017-11-04] MEDS ORDERED: ACETAMINOPHEN 325 MG TAB PO PRN (21:30)
[2017-11-04] MEDS ORDERED: NITROGLYCERIN 0.4 MG SL PER TAB CHARGE SL PRN (21:30)
[2017-11-04] MEDS ORDERED: PIPERACILL/TAZOBAC CONSULT ACTIVE PRN (21:30)
[2017-11-04 22:51] VITALS: BP 101/62; PULSE 87; TEMP 36.6; O2SAT 94
[2017-11-04] MEDS ORDERED: PIPERACILL/TAZOBAC IV 4.5 GM in DEXTROSE 5% 100ML 100 ML IV ONE (23:00)
--- NOTE | 2017-11-04 23:04 | HISTORY & PHYSICAL EXAMINATION ---
DATE OF ADMISSION: 11/04/2017 CHIEF COMPLAINT: The patient has pancreatic mass. HISTORY OF PRESENT ILLNESS: This is a 77-year-old male who is from [facility], does not speak Lithuanian. Daughter can speak Lithuanian. Used translation services. The patient has past medical history of diabetes type 2, peripheral vascular disease, hypertension, anemia of chronic disease, chronic kidney disease stage IV, history of CVA and could not move his left lower extremity, history of recent lower GI bleed and EGD was done, which was normal. Colonoscopy showed hyperplastic adenomatous polyps that were resected in August of this year. He was admitted on 11/03/2017 due to lethargy and not feeling well and mid epigastric pain and jaundice for 2 weeks and workup showed obstructive jaundice with progressive biliary duct dilatation, possible pancreatic mass. The patient is status post endoscopic ultrasound and ERCP today and found to have 35 mm pancreatic head mass with obstruction of his common bile duct, possible malignant lymphadenopathy . FNA of lymph nodes obtained and ERCP was attempted but we could not cannulate the CBD due to obstructive mass and was recommended for transfer to [place] for EUS versus interventional radiology procedure.Overall prognosis was thought to be poor, possible metastatic pancreatic cancer and unlikely surgical candidate, but the plan was to transfer to [place] for further workup and he almost went to the ambulance, but he could not get up into the ambulance because of his back pain. The patient says that he has been immobile for several years now and whenever he tries to move, he has lot of back pain and they tried to put him on stretcher, complained of lot of back pain, he want to sit in the chair, but he was not offered and he did not want to go in that position, so he was transferred back to the room. He is somewhat agitated. He was doing better now. He just wanted to go home, but when I talked to him with the translation services, the patient says he is willing to go to [place] but only when he can sit in a chair in the van. He knows his situation. He knows that he has metastatic cancer and going to tertiary care can prolong his life. He denies any chest pain or shortness of breath. No nausea. Some mild abdominal discomfort. Complains that he cannot move his left lower extremity. Otherwise seems comfortable. ALLERGIES: LORETTA INHIBITORS, ANGIOTENSIN RECEPTOR BLOCKERS. PAST MEDICAL HISTORY: As mentioned above. PAST SURGICAL HISTORY: EGD and colonoscopy. MEDICATIONS: He was on aspirin, vitamin D, Plavix, Cardura, Lasix, gabapentin, insulin, NovoLog, Lantus, Toprol-XL, which were held on transfer to [place] and he was continued on IV Zosyn and IV Protonix. FAMILY HISTORY: None present. SOCIAL HISTORY: Smokes every day. No drug use. , retired. REVIEW OF SYMPTOMS: As per the HPI. Could not get rest of review of symptoms as patient does not speak Lithuanian and difficult to get much of the answers from the translation services. PHYSICAL EXAMINATION: GENERAL: The patient is obese, not in distress. VITAL SIGNS: Not available at this time. HEENT: No pallor or jaundice present. NECK: No neck masses. CARDIOVASCULAR: S1, S2 heard, regular rate and rhythm, no murmur, no gallop. RESPIRATORY SYSTEM: Normal AP diameter. No accessory muscle use. No wheezing, no crackles. ABDOMEN: Soft, bowel sounds present, nontender. No distention. CENTRAL NERVOUS SYSTEM: Nonfocal. EXTREMITIES: Bilateral lower extremity edema present. Could not move his left lower extremity and some gangrenous changes in his toes seen. LABORATORIES: Not available. ASSESSMENT AND PLAN: This is a 77-year-old male who was admitted yesterday for jaundice and found to have obstructive jaundice from possible pancreatic mass and plan was transfer to [place] but refused to go because could not lie in the stretcher because of his back pain. 1. Obstructive jaundice with possible pancreatic mass status post ERCP today, which showed 35 mm pancreatic head mass with obstruction of CBD. FNA of the lymph nodes obtained, possible metastatic cancer. ERCP was attempted but could not cannulate the CBD so was advised to go to tertiary care for EUS and stent versus interventional radiology procedure. Could not go today because patient is immobile for last 4-5 years and have back pain, could not lay his back in a stretcher and he wants to go with a sitting chair but that was refused.He is willing to go tomorrow if we can arrange for the van with him sitting in a chair. He knows the situation that he has metastatic cancer and going to tertiary care may prolong his life and he is willing to try if to go sitting on a chair. Daughter in the room and she also understands the situation. For now, we will place him on IV Zosyn and the IV fluids with LR at 150 mL per hour, clear liquid diet and monitor in the tele floor. Depending on the situation tomorrow, we will consult GI or palliative care or transfer to tertiary care. 2. History of CVA, aspirin and Plavix on hold for anemia and GI bleed. 3.Peripheral vascular disease, . Aspirin and Plavix are held for the GI bleed, anemia. He is having pain in the lower extremities. We will get a lower extremity Doppler venous and arterial and follow the results. 4. Gangrene of left great toe and peripheral vascular disease, on Zosyn. We will follow the lower extremity Doppler. 5 Anemia,possibly GI bleed. The patient presented with hemoglobin 6.4 yesterday. He was status post 2 units PRBC. Hemoglobin 9.2 today. We will follow the labs in a.m. The patient recently had EGD and colonoscopy in August 2017 . At that time, polypectomy was done for tubular adenoma/hyperplastic polyps . EGD was normal. 6 Type 2 diabetes. Hemoglobin A1c is 6.[address] on clear liquid diet. Holding the Lantus. ISS. Will monitor. 7Sacral decubitus ulcer present on admission. Wound care was consulted based on disposition tomorrow. 8.Acute kidney injury on chronic kidney disease stage IV with creatinine of 3.3 yesterday, it was 3.1 today. His baseline creatinine is around 3. We will follow the labs in the a.m. on the fluids. 9 Deep venous thrombosis prophylaxis, high risk. The patient is nonambulatory for last several years. No pharmacologic anticoagulation with significant anemia on presentation with possible GI bleed. SCD'S not ordered because of peripheral vascular disease. We will monitor. DISPOSITION: Monitor in tele floor for now and possible transfer to [place] tomorrow if patient is agreeable and if possible on the van with a wheelchair. Code status discussed with daughter. Want to be full code. MTDD
[2017-11-05] MEDS ORDERED: GLUCOSE 10 TABS/TUBE PO PRN (00:30)
[2017-11-05] MEDS ORDERED: DEXTROSE 50% 50 ML SYR IV PRN (00:30)
[2017-11-05] MEDS ORDERED: GLUCOSE 40% GEL 15 GM TUBE PO PRN (00:30)
[2017-11-05] MEDS ORDERED: CARBOHYDRATES FOR HYPOGLYCEMIA PO PRN (00:30)
[2017-11-05] MEDS ORDERED: GLUCAGON FOR INJ 1 MG VIAL IM PRN (00:30)
[2017-11-05] MEDS: LACTATED RINGER'S 1000ML 1,000 ML IV SCH ×2 (00:56→07:32)
[2017-11-05] MEDS ORDERED: HYDROmorphone INJ 0.5 MG/0.5 ML SYR IV PRN (01:15)
[2017-11-05 03:04] VITALS: BP 126/70; PULSE 90; TEMP 36.6; O2SAT 96
[2017-11-05] MEDS ORDERED: PIPERACILL/TAZOBAC IV 4.5 GM in DEXTROSE 5% 100ML 100 ML IV SCH (04:00)
[2017-11-05] MEDS ORDERED: INSULIN ASPART 100 UNITS/ML 3 ML PEN SC SCH (07:00)
[2017-11-05 07:39] LABS: BASO % 0.4 %; BASO ABS # 0.04 K/uL (0-0.2); EOS % 0.8 %; EOS ABS # 0.08 K/uL (0-0.5); HEMOGLOBIN 8.9 g/dL (14.0-18.0); IG# 0.04 K/uL (0.00-0.02); LYMPH % 12.2 %; LYMPH ABS # 1.27 K/uL (1.2-3.4); MEAN CELL VOLUME 90.3 fL (80-100); MEAN CORPUSCULAR HEMOGLOBIN 29.8 pg (25-34); MEAN PLATELET VOLUME 11.3 fL (7.4-10.4); MONO % 8.5 %; MONO ABS # 0.88 K/uL (0.11-0.59); NEUT % 77.7 %; NEUT ABS # 8.08 K/uL (1.4-6.5); PLATELET COUNT 346 K/uL (130-400); RED CELL DISTRIBUTION WIDTH CV 17.4 % (11.5-14.5); WHITE BLOOD COUNT 10.39 K/uL (4.8-10.8)
[2017-11-05 07:58] VITALS: BP 122/63; PULSE 76; TEMP 36.9; O2SAT 95
[2017-11-05 08:24] LABS: ALBUMIN 1.3 gm/dl (3.4-5.0); CREATININE 3.12 mg/dl (0.60-1.40); POTASSIUM 3.6 mmol/L (3.5-5.1)
[2017-11-05 08:47] LABS: TOTAL PROTEIN 5.9 gm/dl (6.4-8.2)
[2017-11-05] MEDS ORDERED: GABAPENTIN 100 MG CAP PO SCH (09:00)
[2017-11-05] MEDS ORDERED: PROTONIX 40 MG IV SCH (09:00)
--- NOTE | 2017-11-05 09:03 | DIAGNOSTIC IMAGING REPORT ---
VENOUS DOPPLER LWR EXT BILA HISTORY: Pain. Edema. dvt? COMPARISON STUDY: 08/15/2017 FINDINGS: There is normal compressibility, flow, and augmentation within the bilateral lower extremity deep venous systems. IMPRESSION: No DVT within the right or left lower extremity. The above report was generated using voice recognition software. It may contain grammatical, syntax or spelling errors. Electronically signed by: Rene Davis M.D. 11/05/2017 6:50 AM Dictated Date/Time: 11/05/2017 6:49 AM
--- NOTE | 2017-11-05 09:04 | DIAGNOSTIC IMAGING REPORT ---
ART DOP LOWER EXT BILAT HISTORY: 77 years-old Male PVD acute pain and swelling of the lower legs, right greater than left COMPARISON: Duplex venous Doppler study of same day TECHNIQUE: Multiple real-time sonographic images of the bilateral lower extremity arterial structures were obtained assessing grayscale appearance, color and spectral flow FINDINGS: RIGHT: Triphasic waveforms are noted within the common femoral, profunda femoris and superficial femoral arteries. Biphasic waveforms within the popliteal artery with blunted monophasic waveforms within the proximal posterior tibial artery. No definite flow noted within the distal posterior tibial and dorsalis pedis arteries. There is a reverse flow noted within the distal aspect of the anterior tibial artery. Areas of broken intermittent flow noted within the anterior tibial and peroneal arteries. Biphasic waveforms are seen within the peroneal artery. Prominent atherosclerotic plaquing noted throughout. LEFT: Biphasic waveforms are seen within the common femoral and profunda femoris and superficial femoral arteries. Markedly elevated peak systolic velocity of 499 cm/s noted within the mid superficial femoral artery with prominent atherosclerotic plaquing. Blunted biphasic waveforms with spectral broadening noted within the distal superficial femoral artery. Biphasic and monophasic waveforms are seen within the popliteal artery with areas of spectral broadening. Areas of broken intermittent flow also noted within the popliteal artery as well as within the peroneal and anterior tibial arteries. Blunted monophasic waveforms within the distal peroneal artery. No flow identified within the posterior tibial and dorsalis pedis arteries. IMPRESSION: 1. No arterial inflow identified within the left posterior tibial and dorsalis pedis arteries suggesting high-grade stenosis or occlusion. 2. Additionally, there is no flow identified within the right posterior tibial and dorsalis pedis arteries which may also reflect high-grade stenosis or occlusion. 3. Elevated peak systolic velocity within the mid left superficial femoral artery compatible with high-grade stenosis. 4. Inflow disease about the left lower extremity. 5. Additional findings as above. The above report was generated using voice recognition software. It may contain grammatical, syntax or spelling errors. Electronically signed by: Lyle Victor M.D. 11/05/2017 7:29 AM Dictated Date/Time: 11/05/2017 7:21 AM
[2017-11-05] MEDS ORDERED: ATROPINE SULFATE 1% OP SOLN 5 ML BTL SL PRN (11:00)
[2017-11-05] MEDS ORDERED: LORAZEPAM 2 MG/ML 1 ML VIAL IV PRN (11:00)
[2017-11-05] MEDS ORDERED: PANTOprazole INJ 40 MG in SYRINGE 0 ML IV SCH (11:00)
[2017-11-05] MEDS ORDERED: MoRPHine SULFATE 5 MG/0.25 ML UDP PO PRN (11:00)
[2017-11-05] MEDS ORDERED: HYDROmorphone INJ 2 MG/ML SYR/VIAL IV PRN (11:00)
[2017-11-05] MEDS ORDERED: LORAZEPAM 0.5 MG TAB SL PRN (11:00)
--- NOTE | 2017-11-05 11:01 | Progress Note ---
Internal Med Progress Note Date of Service: Nov 05, 2017. Provider Documentation: SUBJECTIVE: Patient was unable to be transferred to [facility] yesterday, this could not tolerate lying in ambulance liter, for severe pain on sacral ulcer Patient refuse to have any procedure intervention Wants to be comfort care only Lengthy discussion with the daughter, GI team-Marlene Garner PA-C regarding progression of disease/possible cholangitis-leading to sepsis/ hyperbilirubinemia for obstructive jaundice leading to coma As palliative stent or drainage of the CBD will not change outcome or mortality Patient does not want to have the procedure done Communicated to patient, with daughter helping to interpret Patient and daughter both understand the gravity of the disease Patient wants to go home, once nursing help to maintenance of catheter, pain medication CODE STATUS changed to DNR/DNI, as patient does not want any heroic measures / resuscitation Willing to pursue palliative/hospice wound care rn updated Referral made to hospice service to [facility] Bill will coordinate with patient/family services and equipment (hospital bed/ oxygen if needed) Plan to discharge home with hospice care today GI team updated OBJECTIVE: Vital Signs-as noted below Exam: General-severely jaundiced, chronically ill appearing, patient speaks in Kazakh only Eyes-deeply icteric sclera ENT-dry oral mucous members Neck-no JVD Lungs-diminished breath sound Heart-regular S1 and S2 Abdomen-moderately distended, no epigastric gastric or right upper quadrant tenderness Extremities-diffuse venous stasis skin change in bilateral lower extremity/ necrotic toe with eschar present in the right great toe/fungal destruction of all toenails Stage I sacral decub ulcer(present on admission) Neuro-having episodes of confusion/agitation; my interview with patient, appears to be lucid, asking appropriate questions regarding the disease, procedure and prognosis Interpretation to daughter-wants to go home, be comfortable/does not want into the intervention or surgery as there is no cure available for advance CA Lab data as noted below. ASSESSMENT & PLAN: PANCREATIC MASS WITH OBSTRUCTIVE JAUNDICE: -Patient presented with marked jaundice/bilirubin more than 10 CT abdomen pelvis showed large pancreatic mass /with dilated CBD underwent EUS yesterday 11/04/17 by [facility] GI team Noted to have large 35 mm pancreatic mass, causing up, pathologic lymphadenopathy at the celiac and anand hepatis area FNA of lymph nodes obtained-cytology pending ERCP was attempted, but could not cannulate CBD-due to mass-effect/compression by large tumor Recommended to transfer the patient to [facility] care Possible palliative stent versus IR guided drainage -Patient was accepted to be transferred to [facility]- -with attempt to transport via ambulance, patient was experiencing significant pain and discomfort on sacral decubitus area -Did not wanted to be transferred to [place] -Does not want any intervention to be done, if it cannot provide cure -Overall patient's prognosis is very poor -Not a surgical candidate /very poor functional status-advance kidney disease/ may not be a candidate for chemo as well -Patient and daughter understand -Patient insisted on returning home with comfort care hospice Social service updated Referral made to [facility] Plan to return home with hospice later today ANEMIA/GI BLEED -On presentation hemoglobin was 6.4 -Stool heme positive in the ER -Status post 2 units of PRBC transfusion Hemoglobin improved to 9 PERIPHERAL VASCULAR DISEASE/WITH GANGRENE OF LEFT GREAT TOE History of peripheral vascular disease, status post atherectomy in past Was on aspirin and Plavix which is discontinued secondary to anemia and GI bleed Has multiple gangrenous toe Developed severe pain on bilateral lower extremity Lower extremity venous Doppler shows no evidence of DVT Arterial Doppler shows: -No arterial inflow identified in the left posterior tibial and dorsalis pedis artery, suggestive of high-grade stenosis or occlusion -No blood flow identified within the right posterior tibial and dorsalis pedis artery-reflecting high-grade stenosis or occlusion -Elevated peak systolic velocity within the mid left superficial femoral artery compatible with high-grade stenosis Very poor prognosis Cannot be treated with anticoagulation because of the anemia GI bleed Not a candidate for vascular procedure or angiogram-due to advanced CKD Report of arterial Doppler updated to daughter Wants patient to be pain-free/comfortable transition to hospice care at home SACRAL DECUBITUS ULCER Present on admission Stage IVV CKD Advanced CKD with creatinine 3 CODE STATUS: DNR DNI DVT PROPHYLAXIS Very high risk Non-ambulatory at baseline/possible metastatic pancreatic cancer No pharmacological anticoagulation secondary to anemia/ GI bleed Compression device: SCD and teds not ordered secondary to severe peripheral vascular/gangrenous toe DISPOSITION Lives with his daughter Patient will be discharged home with hospice care today Referral made to [facility] Daughter. is the primary caregiver-in agreement with the plan/hospice care Social service consulted for discharge planning Patient will need to transport arrangements to return home Vital Signs: Date Time Temp Pulse Resp B/P (MAP) Pulse Ox O2 Delivery O2 Flow Rate FiO2 11/05/17 13:13 36.8 68 18 92 11/05/17 12:14 36.8 68 18 109/74 (86) 92 11/05/17 08:00 Room Air 11/05/17 07:58 36.9 76 16 122/63 (82) 95 11/05/17 03:04 36.6 90 19 126/70 (88) 96 Room Air 11/04/17 22:51 36.6 87 18 101/62 (75) 94 Room Air 11/04/17 20:30 97 Room Air Lab Results: Results Past 24 Hours Test 11/04/17 22:32 11/05/17 04:37 11/05/17 04:38 11/05/17 04:56 Range/Units Bedside Glucose 156 64 60 56 70-99 mg/dl Test 11/05/17 07:05 11/05/17 07:28 Range/Units White Blood Count 10.39 4.8-10.8 K/uL Red Blood Count 2.99 4.7-6.1 M/uL Hemoglobin 8.9 14.0-18.0 g/dL Hematocrit 27.0 42-52 % Mean Corpuscular Volume 90.3 80-100 fL Mean Corpuscular Hemoglobin 29.8 25-34 pg Mean Corpuscular Hemoglobin Concent 33.0 32-36 g/dl Platelet Count 346 130-400 K/uL Mean Platelet Volume 11.3 7.4-10.4 fL Neutrophils (%) (Auto) 77.7 % Lymphocytes (%) (Auto) 12.2 % Monocytes (%) (Auto) 8.5 % Eosinophils (%) (Auto) 0.8 % Basophils (%) (Auto) 0.4 % Neutrophils # (Auto) 8.08 1.4-6.5 K/uL Lymphocytes # (Auto) 1.27 1.2-3.4 K/uL Monocytes # (Auto) 0.88 0.11-0.59 K/uL Eosinophils # (Auto) 0.08 0-0.5 K/uL Basophils # (Auto) 0.04 0-0.2 K/uL RDW Standard Deviation 57.0 36.4-46.3 fL RDW Coefficient of Variation 17.4 11.5-14.5 % Immature Granulocyte % (Auto) 0.4 % Immature Granulocyte # (Auto) 0.04 0.00-0.02 K/uL Large Platelets 1+ Anisocytosis PRESENT Target Cells 1+ Echinocytes 1+ Sodium Level 135 136-145 mmol/L Potassium Level 3.6 3.5-5.1 mmol/L Chloride Level 103 98-107 mmol/L Carbon Dioxide Level 24 21-32 mmol/L Anion Gap 8.0 3-11 mmol/L Blood Urea Nitrogen 25 7-18 mg/dl Creatinine 3.12 0.60-1.40 mg/dl Est Creatinine Clear Calc Drug Dose 24.9 ml/min Estimated GFR () 21.3 Estimated GFR (Non- 18.4 BUN/Creatinine Ratio 8.0 10-20 Random Glucose 63 70-99 mg/dl Calcium Level 8.0 8.5-10.1 mg/dl Magnesium Level 2.3 1.8-2.4 mg/dl Total Bilirubin 11.0 0.2-1 mg/dl Direct Bilirubin 9.6 0-0.2 mg/dl Aspartate Amino Transf (AST/SGOT) 377 15-37 U/L Alanine Aminotransferase (ALT/SGPT) 158 12-78 U/L Alkaline Phosphatase 1461 45-117 U/L Total Protein 5.9 6.4-8.2 gm/dl Albumin 1.3 3.4-5.0 gm/dl Bedside Glucose 121 70-99 mg/dl
[2017-11-05 12:14] VITALS: BP 109/74; PULSE 68; TEMP 36.8; O2SAT 92
[2017-11-05 12:47] VITALS: Ht 177.8 cm; Wt 108.8 kg
[2017-11-05 13:13] VITALS: BP 109/74; PULSE 68; TEMP 36.8; O2SAT 92
[2017-11-05] MEDS ORDERED: ATV5 SL (13:28)
[2017-11-05] MEDS ORDERED: ATROPS5 SL (13:28)
[2017-11-05] MEDS ORDERED: RXNS10 PO (13:28)
[2017-11-05] MEDS ORDERED: MRLP17X PO (13:28)
--- NOTE | 2017-11-05 13:31 | Discharge Instructions ---
Discharge Instructions Date of Service Nov 05, 2017. Admission Reason for Admission: Pancreatic Mass Discharge Discharge Diagnosis / Problem: METASTATIC PANCREATIC TUMOR/OBSTRUCTIVE JAUNDICE /PVD/HOSPICE Discharge Goals Goal(s): Decrease discomfort, Specific goals (Comfort care/hospice) Activity Recommendations Activity Limitations: as noted below (Bedrest/repositioning for comfort care only) . Instructions / Follow-Up Instructions / Follow-Up [facility] Current Hospital Diet Patient's current hospital diet: Clear Liquid Diet Discharge Diet Recommended Diet: Clear Liquid Diet Pending Studies Studies pending at discharge: no Laboratory Results Hemoglobin A1c Test 11/04/17 07:05 Range/Units Estimated Average Glucose 137 mg/dl Hemoglobin A1c 6.4 H 4.5-5.6 % Medical Emergencies . Who to Call and When: Medical Emergencies: If at any time you feel your situation is an emergency, please call 911 immediately. . Non-Emergent Contact Non-Emergency issues call your: Primary Care Provider . . "Provider Documentation" section prepared by Serene Devine. .
[2017-11-05] MEDS ORDERED: PROMETHAZINE HCL INJ 12.5 MG in SODIUM CHLORIDE 0.9% 50ML 50 ML IV STA (13:40)
[2017-11-05] MEDS ORDERED: PROMETHAZINE HCL INJ 12.5 MG in SODIUM CHLORIDE 0.9% 50ML 50 ML IV PRN (13:45)
[2017-11-05] MEDS ORDERED: PROM25SU28 PR (13:48)
[2017-11-05] MEDS ORDERED: PROM12.529 PO (13:48)
[2017-11-05] MEDS ORDERED: ONDA8TAB62 SL (13:48)
[2017-11-05] MEDS ORDERED: SCOP1.5D2 TD (13:48)
[2017-11-05] MEDS ORDERED: SCOPOLAMINE 1.5 MG TDSY TD SCH (14:00)
--- NOTE | 2017-11-05 14:13 | Palliative Care Consultation ---
Consultation Date of Consultation: Nov 05, 2017. Requesting Physician: Dr. Devine Attending Physician: Dr. Devine Reason for Consultation: Comfort measures/hospice History of Present Illness This 77 year old man from [facility] with PMH diabetes type 2, peripheral vascular disease, hypertension, anemia of chronic disease, chronic kidney disease stage IV, history of CVA and could not move his left lower extremity, history of recent lower GI bleed and EGD was done, which was normal, colonoscopy which showed hyperplastic adenomatous polyps that were resected in August of this year, presented for readmission with back/abdominal pain and pancreatic mass. He was admitted on 11/03/2017 due to lethargy and not feeling well and mid epigastric pain and jaundice for 2 weeks and workup showed obstructive jaundice with progressive biliary duct dilatation, possible pancreatic mass. The patient is status post endoscopic ultrasound and ERCP today and found to have 35 mm pancreatic head mass with obstruction of his common bile duct, possible malignant lymphadenopathy. FNA of lymph nodes obtained and ERCP was attempted but we could not cannulate the CBD due to obstructive mass and was recommended for transfer to [place] for EUS versus interventional radiology procedure. Prognosis is deemed to be poor, but patient was willing to go to [place] for procedure/treatment. When they took patient out to get into ambulance, he was unable to get into the ambulance due to severe pain. He was brought back to his room. Today, patient is stating that he just wants to go home on hospice and no longer wants treatment or to be transferred to [place]. Patient only speaks Bahraini and tractor technician was used for his discussions with providers to make this decision. With tractor technician, patient stated he now wants all decision making to go through his daughter, Citlalli Hampton. Palliative care is consulted to provide supportive care to patient and daughter. I met with the patient and his daughter, Citlalli, in room 218. Patient is in no distress, obese and clearly jaundiced. He was smiling and shook my hand. His daughter Citlalli is at bedside. Patient declined using translation services, daughter translated and patient confirmed he wants to go home with hospice. Citlalli spoke with me outside of room. She is tearful and stated, "I just found all of this out yesterday. We had him here a couple months ago and this wasn't found." She stated she wants to follow her father's wishes and take him home with hospice care. I asked if she was okay with providing his care and that he would have 03/11 care, she stated yes. We discussed some logistic issues as well as end of life issues. She verbalized understanding. Patient is anxious to get home CHRIS. Past Medical/Surgical History Medical History: as above Social History Smoking Status: Current Every Day Smoker History of Alcohol Use: No Drug Use: none Marital Status: Occupation Status: retired Review of Systems unable to obtain full ROS due to language barrier Allergies Coded Allergies: LORETTA Inhibitors (Verified Adverse Reaction, Intermediate, ADVANCED CKD, ) Angiotensin Receptor Blockers (Verified Adverse Reaction, Intermediate, ADVANCED CKD, 11/03/17) Medications Current Inpatient Medications Medications (Trade) Dose Ordered Sig/Shubham Route Start Time Stop Time Status Last Admin Dose Admin Polyethylene (Miralax Powder Packet) 17 gm DAILY PRN PO 11/04/17 21:30 12/04/17 21:29 Hydromorphone HCl (Dilaudid Inj) 1 mg Q1H PRN IV 11/05/17 11:00 11/19/17 10:59 Morphine Sulfate (Roxanol Oral Soln) 5 mg Q4 PRN PO 11/05/17 11:00 11/19/17 10:59 Atropine Sulfate (Atropine Sulfate 1% Oph Soln) 2 drops Q1H PRN SL 11/05/17 11:00 12/05/17 10:59 Lorazepam (Ativan Inj) 0.5 mg Q4H PRN IV 11/05/17 11:00 12/05/17 10:59 Lorazepam (Ativan Tab) 0.5 mg Q4 PRN SL 11/05/17 11:00 12/05/17 10:59 Physical Exam Date Time Temp Pulse Resp B/P (MAP) Pulse Ox O2 Delivery O2 Flow Rate FiO2 11/05/17 12:14 36.8 68 18 109/74 (86) 92 11/05/17 08:00 Room Air 11/05/17 07:58 36.9 76 16 122/63 (82) 95 11/05/17 03:04 36.6 90 19 126/70 (88) 96 Room Air 11/04/17 22:51 36.6 87 18 101/62 (75) 94 Room Air 11/04/17 20:30 97 Room Air General Appearance: no apparent distress, + obese ENT: hearing grossly normal Neck: supple, no JVD Respiratory: no respiratory distress, no accessory muscle use, + pertinent finding (room air) Cardiovascular: regular rate, rhythm, + normal peripheral pulses Abdomen: normal bowel sounds, + distended (obese abdomen) Neurologic/Psychiatric: alert, normal mood/affect Skin: + jaundice Laboratory Results Last 24 Hours Test 11/04/17 22:32 11/05/17 04:37 11/05/17 04:38 11/05/17 04:56 Bedside Glucose 156 mg/dl 64 mg/dl 60 mg/dl 56 mg/dl Test 11/05/17 07:05 11/05/17 07:28 White Blood Count 10.39 K/uL Red Blood Count 2.99 M/uL Hemoglobin 8.9 g/dL Hematocrit 27.0 % Mean Corpuscular Volume 90.3 fL Mean Corpuscular Hemoglobin 29.8 pg Mean Corpuscular Hemoglobin Concent 33.0 g/dl Platelet Count 346 K/uL Mean Platelet Volume 11.3 fL Neutrophils (%) (Auto) 77.7 % Lymphocytes (%) (Auto) 12.2 % Monocytes (%) (Auto) 8.5 % Eosinophils (%) (Auto) 0.8 % Basophils (%) (Auto) 0.4 % Neutrophils # (Auto) 8.08 K/uL Lymphocytes # (Auto) 1.27 K/uL Monocytes # (Auto) 0.88 K/uL Eosinophils # (Auto) 0.08 K/uL Basophils # (Auto) 0.04 K/uL RDW Standard Deviation 57.0 fL RDW Coefficient of Variation 17.4 % Immature Granulocyte % (Auto) 0.4 % Immature Granulocyte # (Auto) 0.04 K/uL Large Platelets 1+ Anisocytosis PRESENT Target Cells 1+ Echinocytes 1+ Sodium Level 135 mmol/L Potassium Level 3.6 mmol/L Chloride Level 103 mmol/L Carbon Dioxide Level 24 mmol/L Anion Gap 8.0 mmol/L Blood Urea Nitrogen 25 mg/dl Creatinine 3.12 mg/dl Est Creatinine Clear Calc Drug Dose 24.9 ml/min Estimated GFR () 21.3 Estimated GFR (Non- 18.4 BUN/Creatinine Ratio 8.0 Random Glucose 63 mg/dl Calcium Level 8.0 mg/dl Magnesium Level 2.3 mg/dl Total Bilirubin 11.0 mg/dl Direct Bilirubin 9.6 mg/dl Aspartate Amino Transf (AST/SGOT) 377 U/L Alanine Aminotransferase (ALT/SGPT) 158 U/L Alkaline Phosphatase 1461 U/L Total Protein 5.9 gm/dl Albumin 1.3 gm/dl Bedside Glucose 121 mg/dl Assessment & Plan Problem list: Abdominal and back pain Weakness Pancreatic mass Hyperbilirubinemia Goals of care Palliative care recs: -Patient is refusing pain medication. Would still order Roxanol 5-10mg PO/SL Q1h PRN pain or SOB. -PLan is for home with hospice per case resolution specialist who spoke with patient and his daughter via translation services. At that time, patient used tractor technician to state that he wanted his daughter to receive all updates from now on and declines using further translation services. -I spoke with daughter Citlalli and patient via daughter's translation. He confirmed he would like to go home with hospice and understands that this is end of life care. -Education and support given to patient's daughter. She states she can provide his care at home. -[facility] referral made. Daughter is requesting transport be set up for the patient. They'd like to get him home CHRIS. Thank you kindly for this consult. Please contact me with any further palliative care needs. Total time spent 70 minutes with >50% of time spent at bedside with patient and daughter counseling and discussing goals of care as well as coordinating with case management.
[2017-11-05 14:40] VITALS: BP 109/74; PULSE 68; TEMP 36.8; O2SAT 92
[2017-11-05] MEDS ORDERED: HYDR2TAB48 PO (14:54)
[2017-11-05] MEDS ORDERED: CHECK SCOPOLAMINE PATCH PLACEMENT SCH (16:00)
--- NOTE | 2017-11-05 17:43 | Discharge Summary ---
Discharge Summary Date of Service Nov 05, 2017. Discharge Summary Admission Date: Nov 04, 2017 at 20:56 Discharge Date: Nov 05, 2017 Discharge Disposition: Home with services Principal Diagnosis: METASTATIC PANCREATIC TUMOR/OBSTRUCTIVE JAUNDICE /PVD/HOSPICE Consultations: PALLIATIVE CARE/HOSPICE AGENCY Medication Reconciliation New Medications: Hydromorphone Hcl (Dilaudid) 2 Mg Tab 1 TAB PO Q4 PRN for Pain, #30 TAB Ondansetron Odt (Zofran Odt) 8 Mg Soltab 8 MG SL Q6H PRN for Nausea, #90 TAB Promethazine Hcl (Phenergan) 12.5 Mg Tab 1 TAB PO Q4 PRN for Nausea, #90 TAB Promethazine Hcl (Phenergan Suppository) 25 Mg Supp 25 MG TX Q6H PRN for Nausea, #30 SUPP WHEN UNABLE TO TAKE ORALLY Scopolamine (Transderm-Scop) 1 Mg/3 Days Dis 3 MG TD Q72H, #10 PATCH Atropine Sulfate (Atropine Sulfate) 1 % Dione 2 DROPS SL Q1H PRN for for increased secretion for 30 Days, #15 ML 3 Refills Lorazepam (Lorazepam) 0.5 Mg Tab 0.5 MG SL Q4 PRN for Anxiety, #60 TAB Morphine Sulfate (Morphine Sulfate) 10 Mg/0.5 Ml Soln 5 MG PO Q4 PRN for Pain, #30 ML Polyethylene (Miralax) 17 Gm Pow 17 GM PO DAILY PRN for Constipation for 30 Days OVER THE COUNTER Discontinued Medications: Aspirin (Aspirin Ec) 81 Mg Tab 81 MG PO DAILY Cholecalciferol (Vitamin D3 Ultra Strength) 5,000 Unit Cap 1 CAP PO every other day Clopidogrel (Plavix) 75 Mg Tab 75 MG PO DAILY for 30 Days, #30 TAB Doxazosin Mesylate (Cardura) 2 Mg Tab 2 MG PO DAILY Furosemide (Lasix) 40 Mg Tab 80 MG PO DAILY, TAB Gabapentin (Neurontin) 100 Mg Cap 100 MG PO TID for 30 Days, #90 CAP Insulin Aspart (Novolog Flexpen) 100 Units/Ml Inj 5 UNITS SQ TIDM for 30 Days, #1 PEN Insulin Glargine (Lantus Solostar) 100 Unit/Ml Inj 45 UNITS SC DAILY for 30 Days, #5 PEN Metoprolol Succ (Toprol Xl) (Toprol-Xl) 25 Mg Tabcr 25 MG PO HS, #30 TAB Piperacillin Sodium-Tazobactam (Zosyn) 1 Inj Inj 4.5 MG IV Q8 for 14 Days [protonix] () 40 MG IV DAILY for 30 Days Admission Information HPI (per Admitting provider): DATE OF ADMISSION: 11/04/2017 CHIEF COMPLAINT: The patient has pancreatic mass. HISTORY OF PRESENT ILLNESS: This is a 77-year-old male who is from [facility], does not speak Indian. Daughter can speak Indian. Used translation services. The patient has past medical history of diabetes type 2, peripheral vascular disease, hypertension, anemia of chronic disease, chronic kidney disease stage IV, history of CVA and could not move his left lower extremity, history of recent lower GI bleed and EGD was done, which was normal. Colonoscopy showed hyperplastic adenomatous polyps that were resected in August of this year. He was admitted on 11/03/2017 due to lethargy and not feeling well and mid epigastric pain and jaundice for 2 weeks and workup showed obstructive jaundice with progressive biliary duct dilatation, possible pancreatic mass. The patient is status post endoscopic ultrasound and ERCP today and found to have 35 mm pancreatic head mass with obstruction of his common bile duct, possible malignant lymphadenopathy . FNA of lymph nodes obtained and ERCP was attempted but we could not cannulate the CBD due to obstructive mass and was recommended for transfer to [place] for EUS versus interventional radiology procedure.Overall prognosis was thought to be poor, possible metastatic pancreatic cancer and unlikely surgical candidate, but the plan was to transfer to [place] for further workup and he almost went to the ambulance, but he could not get up into the ambulance because of his back pain. The patient says that he has been immobile for several years now and whenever he tries to move, he has lot of back pain and they tried to put him on stretcher, complained of lot of back pain, he want to sit in the chair, but he was not offered and he did not want to go in that position, so he was transferred back to the room. He is somewhat agitated. He was doing better now. He just wanted to go home, but when I talked to him with the translation services, the patient says he is willing to go to [place] but only when he can sit in a chair in the van. He knows his situation. He knows that he has metastatic cancer and going to tertiary care can prolong his life. He denies any chest pain or shortness of breath. No nausea. Some mild abdominal discomfort. Complains that he cannot move his left lower extremity. Otherwise seems comfortable. REVIEW OF SYMPTOMS: As per the HPI. Could not get rest of review of symptoms as patient does not speak Indian and difficult to get much of the answers from the translation services. Physical Exam (per Admitting): PHYSICAL EXAMINATION: GENERAL: The patient is obese, not in distress. VITAL SIGNS: Not available at this time. HEENT: No pallor or jaundice present. NECK: No neck masses. CARDIOVASCULAR: S1, S2 heard, regular rate and rhythm, no murmur, no gallop. RESPIRATORY SYSTEM: Normal AP diameter. No accessory muscle use. No wheezing, no crackles. ABDOMEN: Soft, bowel sounds present, nontender. No distention. CENTRAL NERVOUS SYSTEM: Nonfocal. EXTREMITIES: Bilateral lower extremity edema present. Could not move his left lower extremity and some gangrenous changes in his toes seen. Hospital Course PANCREATIC MASS WITH OBSTRUCTIVE JAUNDICE: -Patient presented with marked jaundice/bilirubin more than 10 CT abdomen pelvis showed large pancreatic mass /with dilated CBD underwent EUS yesterday 11/04/17 by [facility] GI team Noted to have large 35 mm pancreatic mass, causing up, pathologic lymphadenopathy at the celiac and anand hepatis area FNA of lymph nodes obtained-cytology pending ERCP was attempted, but could not cannulate CBD-due to mass-effect/compression by large tumor Recommended to transfer the patient to [place] tertiary care Possible palliative stent versus IR guided drainage -Patient was accepted to be transferred to [facility]- -with attempt to transport via ambulance, patient was experiencing significant pain and discomfort on sacral decubitus area -Did not wanted to be transferred to [place] -Does not want any intervention to be done, if it cannot provide cure -Overall patient's prognosis is very poor -Not a surgical candidate /very poor functional status-advance kidney disease/ may not be a candidate for chemo as well -Patient and daughter understand -Patient insisted on returning home with comfort care hospice Social service updated Referral made to [facility] Plan to return home with hospice later today ANEMIA/GI BLEED -On presentation hemoglobin was 6.4 -Stool heme positive in the ER -Status post 2 units of PRBC transfusion Hemoglobin improved to 9 PERIPHERAL VASCULAR DISEASE/WITH GANGRENE OF LEFT GREAT TOE History of peripheral vascular disease, status post atherectomy in past Was on aspirin and Plavix which is discontinued secondary to anemia and GI bleed Has multiple gangrenous toe Developed severe pain on bilateral lower extremity Lower extremity venous Doppler shows no evidence of DVT Arterial Doppler shows: -No arterial inflow identified in the left posterior tibial and dorsalis pedis artery, suggestive of high-grade stenosis or occlusion -No blood flow identified within the right posterior tibial and dorsalis pedis artery-reflecting high-grade stenosis or occlusion -Elevated peak systolic velocity within the mid left superficial femoral artery compatible with high-grade stenosis Very poor prognosis Cannot be treated with anticoagulation because of the anemia GI bleed Not a candidate for vascular procedure or angiogram-due to advanced CKD Report of arterial Doppler updated to daughter Wants patient to be pain-free/comfortable transition to hospice care at home SACRAL DECUBITUS ULCER Present on admission Stage IV-V CKD Advanced CKD with creatinine 3 CODE STATUS: DNR DNI DVT PROPHYLAXIS Very high risk Non-ambulatory at baseline/possible metastatic pancreatic cancer No pharmacological anticoagulation secondary to anemia/ GI bleed Compression device: SCD and teds not ordered secondary to severe peripheral vascular/gangrenous toe DISPOSITION Lives with his daughter Patient will be discharged home with hospice care today Referral made to [facility] Daughter. is the primary caregiver-in agreement with the plan/hospice care Social service consulted for discharge planning Patient will need to transport arranged to return home Discharge home with hospice today Total time spent on discharge = 40 mins This includes examination of the patient, discharge planning, medication reconciliation, and communication with other providers. Discharge Instructions Discharge Instructions Date of Service Nov 05, 2017. Admission Reason for Admission: Pancreatic Mass Discharge Discharge Diagnosis / Problem: METASTATIC PANCREATIC TUMOR/OBSTRUCTIVE JAUNDICE /PVD/HOSPICE Discharge Goals Goal(s): Decrease discomfort, Specific goals (Comfort care/hospice) Activity Recommendations Activity Limitations: as noted below (Bedrest/repositioning for comfort care only) . Instructions / Follow-Up Instructions / Follow-Up COM[facility] CARE HOSPICE AT HOME WITH [facility] Current Hospital Diet Patient's current hospital diet: Clear Liquid Diet Discharge Diet Recommended Diet: Clear Liquid Diet Pending Studies Studies pending at discharge: no Laboratory Results Hemoglobin A1c Test 11/04/17 07:05 Range/Units Estimated Average Glucose 137 mg/dl Hemoglobin A1c 6.4 H 4.5-5.6 % Medical Emergencies . Who to Call and When: Medical Emergencies: If at any time you feel your situation is an emergency, please call 911 immediately. . Non-Emergent Contact Non-Emergency issues call your: Primary Care Provider . . "Provider Documentation" section prepared by Serene Devine. . Additional Copies To Rosemary Chicas D.O.
== END 2017-11-05 16:00 | disposition hospice, home (50) | DRG 435 ==
LOC: C.2T 20:56 → ENRESERV 11-05 13:07 → C.MED 11-05 13:39
PROVIDERS: ADMIT Internal Medicine; ATTEND Internal Medicine
DX: C25.0 Malignant neoplasm of head of pancreas (principal); K83.1 Obstruction of bile duct; C77.2 Secondary and unspecified malignant neoplasm of intra-abdominal lymph nodes; N17.9 Acute kidney failure, unspecified; K92.1 Melena; E11.52 Type 2 diabetes mellitus with diabetic peripheral angiopathy with gangrene; I96 Gangrene, not elsewhere classified; N18.5 Chronic kidney disease, stage 5; I12.0 Hypertensive chronic kidney disease with stage 5 chronic kidney disease or end stage renal disease; L89.159 Pressure ulcer of sacral region, unspecified stage; I69.344 Monoplegia of lower limb following cerebral infarction affecting left non-dominant side; E11.22 Type 2 diabetes mellitus with diabetic chronic kidney disease; D63.1 Anemia in chronic kidney disease; F17.200 Nicotine dependence, unspecified, uncomplicated; Z51.5 Encounter for palliative care; Z66 Do not resuscitate; Z79.82 Long term (current) use of aspirin; Z79.02 Long term (current) use of antithrombotics/antiplatelets; Z79.4 Long term (current) use of insulin; Z79.899 Other long term (current) drug therapy; Z88.8 Allergy status to other drugs, medicaments and biological substances

== ENCOUNTER 2017-11-14 20:31 | Emergency (ER) | payer OTHER ==
[~2017-11-14 20:31] MED LIST changes: +AMLO10TA3 PO; +ATROPS5 SL; +ATV5 SL; +CHOL20009 PO; +CPR500 PO; +HYDR-3983 PO; +HYDR2TAB48 PO; +MRLP17X PO; +ONDA8TAB62 SL; +PANT40TA PO; +POLY335019 PO; +PROM12.529 PO; +PROM25SU28 PR; +RXNS10 PO; +SCOP1.5D2 TD; +SENN8.6T7 PO; +THIA50TA3 PO; +VLTG EXT
[2017-11-14] MEDS ORDERED: NALOXONE HCL INJ 0.4 MG/1 ML VIAL/CARP IV ONE (20:32)
[2017-11-14] MEDS ORDERED: SODIUM BICARB 8.4% INJ 50 MEQ/50 ML SYR IV ONE (20:32)
[2017-11-14] MEDS ORDERED: CALCIUM CHLORIDE 10% 10 ML SYR IV ONE (20:32)
[2017-11-14 20:50] VITALS: PULSE 0
[2017-11-14] MEDS ORDERED: HYDR2TAB48 PO (21:08)
[2017-11-14] MEDS ORDERED: PROM12.57 PO (21:08)
[2017-11-14] MEDS ORDERED: SCOP1.5D2 TD (21:08)
[2017-11-14] MEDS ORDERED: LORA-741 PO (21:08)
[2017-11-14] MEDS ORDERED: GABA-112 PO (21:08)
[2017-11-14] MEDS ORDERED: PROM1SUP19 PR (21:08)
[2017-11-14] MEDS ORDERED: ZFRODT/8 SL (21:08)
[2017-11-14] MEDS ORDERED: RXNS10 PO (21:08)
--- NOTE | 2017-11-14 21:52 | EMERGENCY ROOM VISIT NOTE ---
History Report prepared by Jose A: Jose Luis Faulkner Under the Supervision of: Dr. Dudley Arcos D.O. First contact with patient: 20:32 Chief Complaint: CARDIAC ARREST Stated Complaint: CARDIAC ARREST History of Present Illness The patient is a 77 year old male who presents to the Emergency Room in cardiac arrest. Per EMS the patient's daughter states that he has been fatigued and "laying in bed" all day. The noticed the patient stopped breathing and immediately called 911. This call was received at 1945, 46 minutes prior to arrival. The patient arrives with REYNA on chest. He received Epinephrine and Bicarbonate prior to arrival via EMS. It was mentioned that the patient went on Hospice last night, but the still wanted him to be a Full Code upon EMS arrival. There is confusion surrounding the patient's code status at this time. Source of History: EMS History Limited By: cardiac arrest Onset: 46 minutes ago Review of Systems See HPI for pertinent positives & negatives. A total of 10 systems reviewed and were otherwise negative. Past Medical & Surgical Medical Problems: (1) Anemia of chronic disease (2) Anxiety (3) CKD (chronic kidney disease), stage V (4) DM type 2 (diabetes mellitus, type 2) (5) History of CVA (cerebrovascular accident) (6) HTN (hypertension) (7) PAD (peripheral artery disease) (8) Pancreatic mass (9) Pancreatitis (10) Spinal stenosis Family History None presented Social History Smoking Status: Current Every Day Smoker Alcohol Use: none Drug Use: none Marital Status: Housing Status: lives with family Occupation Status: retired Current/Historical Medications Scheduled Gabapentin (Neurontin), 100 MG PO TID Scopolamine (Transderm-Scop), 3 MG TD Q72H Scheduled PRN Atropine Sulfate (Atropine Sulfate), 2 DROPS SL Q1H PRN for for increased secretion Hydromorphone Hcl (Dilaudid), 2 MG PO Q4 PRN for Pain Lorazepam (Ativan), 0.5 MG PO Q4 PRN for Anxiety Morphine Sulfate (Morphine Sulfate), 5 MG PO Q4 PRN for Pain Ondansetron (Ondansetron Odt), 8 MG SL Q6 PRN for Nausea or Vomiting Polyethylene (Miralax), 17 GM PO DAILY PRN for Constipation Promethazine (Phenergan ), 12.5 MG PO Q4 PRN for Nausea or Vomiting Promethazine (Phenergan Suppository), 25 MG MO Q6H PRN for Nausea Allergies Coded Allergies: LORETTA Inhibitors (Verified Adverse Reaction, Intermediate, ADVANCED CKD, ) Angiotensin Receptor Blockers (Verified Adverse Reaction, Intermediate, ADVANCED CKD, 11/03/17) Physical Exam Vital Signs Date Time Temp Pulse Resp B/P (MAP) Pulse Ox O2 Delivery O2 Flow Rate FiO2 11/14/17 20:50 0 11/14/17 20:31 Ambu-Bag 11/14/17 20:31 0 Physical Exam GENERAL: laying on long board, ill appearing, jaundiced, unresponsive EYE EXAM: Pupils fixed and dilated. OROPHARYNX: ET TUBE in place. NECK: supple, no nuchal rigidity, no adenopathy, non-tender LUNGS: Coarse breath sounds bilaterally. HEART: No heart sounds. ABDOMEN: abdomen soft, non-tender, normo-active bowel sounds, no masses, no rebound or guarding. SKIN: Jaundiced UPPER EXTREMITIES: upper extremities with diffuse bruising NEURO EXAM: GCS of 3T : Ramirez catheter in place. Lower extremity: bilateral pitting edema. Medical Decision & Procedures Procedure CPR PERFORMED UNDER MY DIRECTION CPR was performed under my direction for 10 minutes. BEDSIDE ULTRA SOUND: Bedside Ultra Sound was performed and shows no cardiac activity. ED Course 2031: The patient was evaluated in room B1. A complete history and physical examination was performed. 2042: Time of was called at 2042 Medical Decision Differential diagnoses includes but is not limited to acute coronary syndrome, myocardial infarction, pericarditis, pulmonary embolus, aortic dissection, pneumonia, pneumothorax, musculoskeletal, shingles, esophageal. Patient is a 77-year-old male who is on hospice per last hospital note was a DNR /DNI that presents the ER in cardiac arrest with a ET tube in place. CPR was started in the ER with the Reyna. CPR was performed in my direction for over 10 minutes. Patient was given multiple doses of IV epinephrine, bicarb and calcium gluconate. Patient had an IO in the left tibia. Bedside ultrasound showed no cardiac activity. ACLS protocol was performed. Prior to arrival patient was shocked once with V. fib. Patient had received multiple doses of epinephrine, 3 rounds of bicarb and calcium gluconate. Long discussion with significant other at bedside and we elected to terminate care due to unlikelihood of of good outcome/good survival. Impression Primary Impression: Cardiac arrest Critical Care I have personally spent 35 minutes of critical care time in the direct management of this patient. This includes bedside care, interpretation of diagnostic studies, and testing, discussion with consultants, patient, and family members, and other required patient management activities. This 35 minutes is in excess of all separately billable procedures. Scribe Attestation The scribe's documentation has been prepared under my direction and personally reviewed by me in its entirety. I confirm that the note above accurately reflects all work, treatment, procedures, and medical decision making performed by me. Departure Information Dispostion Referrals Rosemary Chicas D.O. (PCP) Forms WORK / SCHOOL INSTRUCTIONS, HOME CARE DOCUMENTATION FORM, IMPORTANT VISIT INFORMATION Patient Instructions My [facility]
== END 2017-11-14 20:50 | disposition expired ==
LOC: C.EDB 20:31
DX: I46.9 Cardiac arrest, cause unspecified (principal); R17 Unspecified jaundice; R60.0 Localized edema; Z66 Do not resuscitate; F17.200 Nicotine dependence, unspecified, uncomplicated; Z86.39 Personal history of other endocrine, nutritional and metabolic disease; Z86.73 Personal history of transient ischemic attack (TIA), and cerebral infarction without residual deficits; Z86.79 Personal history of other diseases of the circulatory system; Z87.448 Personal history of other diseases of urinary system; Z88.8 Allergy status to other drugs, medicaments and biological substances